=== PATIENT | male | born 1965 | race Caucasian/White ===

== ENCOUNTER 2023-04-14 16:27 | Outpatient (CLI) | payer MEDICARE, MEDICAID, SELFPAY ==
[2023-04-14 18:16] LABS: Hematocrit 35.7 % (42.0-52.0); Hemoglobin 11.8 g/dL (14.0-18.0); Mean Corpuscular HGB Conc 33.1 g/dl (32-36); Mean Corpuscular Hemoglobin 31.9 pg (26-34); Mean Corpuscular Volume 96.5 fl (80-100); Mean Platelet Volume 10.3 fl (7.4-10.4); Platelet Count Result 140 k/mm3 (150-375); Red Cell Distribution Width 14.2 % (11.5-14.5); White Blood Count 4.8 K/mm3 (4.5-10.0)
[2023-04-14 18:38] LABS: LDL Cholesterol Direct 103 mg/dL
[2023-04-14 18:40] LABS: Alanine Aminotransferase 64 U/L (6-50); Albumin Level 4.3 g/dL (3.5-5.1); Alkaline Phosphatase 95 U/L (38-126); Anion Gap 8 mmol/L (8-16); Aspartate Amino Transferase 47 U/L (17-59); Bilirubin,Total 0.5 mg/dL (0.2-1.3); Blood Urea Nitrogen 11 mg/dL (9-20); Calcium 9.5 mg/dL (8.4-10.2); Carbon Dioxide 28 mmol/L (22-30); Chloride 101 mmol/L (98-107); Cholesterol 295 mg/dL (0-200); Estimated Glomerular Filt Rate > 60; Glucose 147 mg/dL (65-110); Potassium 3.9 mmol/L (3.4-5.0); Sodium 137 mmol/L (137-145)
[2023-04-14 18:55] LABS: Creatinine Urine 78.6 mg/dL
[2023-04-14 19:00] LABS: MALB Creatinine Ratio 11.7 mg/g (0-30); Microalbumin Urine Random 9.2 mg/L (0-16.7)
[2023-04-14 19:16] LABS: Free T4 Free Thyroxine 0.99 ng/mL (0.78-2.19); Vitamin D 25 Hydroxy 17.2 ng/mL
[2023-04-14 19:53] LABS: Triglycerides 717 mg/dL (<150)
== END 2023-04-14 16:28 | disposition home or self-care (01) ==
PROVIDERS: PCP Internal Medicine; Visit Provider Internal Medicine
DX: E11.9 Type 2 diabetes mellitus without complications (principal)
CPT/HCPCS: 36415; 80053; 80061; 82043; 82306; 82607; 84439; 84443; 85027

== ENCOUNTER 2024-09-04 18:15 | Emergency (ER) | payer MEDICARE, MEDICAID, SELFPAY ==
--- NOTE | 2024-09-04 18:18 | ED_ITS ---
HPI - URI/Sore Throat General Chief Complaint: Upper Respiratory Infection Stated Complaint: flu like Time Seen by Provider: 09/04/24 18:18 Source: patient Mode of arrival: ambulatory Limitations: no limitations History of Present Illness HPI Narrative: Patient is a 58-year-old male who presents with 5 days of body aches, cough, congestion and fatigue. Patient was exposed to influenza A. Has been taking Tylenol but did not take any today. Patient did say the Tylenol helped. Denies any fever, chills, nausea, diarrhea. Does report vomiting on day 2 of symptoms. Patient has been out of metformin and glimepiride for 3 days. Related Data Home Medications ?Medication ?Instructions ?Recorded ?Confirmed ?Last Taken ?Type amitriptyline 100 mg tablet 100 mg PO BID 04/14/23 Unknown History glimepiride 4 mg tablet 4 mg PO BID 04/14/23 Unknown History icosapent ethyl 1 gram capsule 2 g PO BID 04/14/23 Unknown History levothyroxine 75 mcg tablet 75 mcg PO DAILY 04/14/23 Unknown History lithium carbonate 450 mg 450 mg PO BID 04/14/23 Unknown History tablet,extended release metformin 500 mg tablet,extended 500 mg PO BID 04/14/23 Unknown History release 24 hr metoprolol succinate 100 mg 100 mg PO DAILY 04/14/23 Unknown History tablet,extended release 24 hr naltrexone microspheres 380 mg 380 mg IM MONTHLY 04/14/23 Unknown History intramuscular suspension,extended release (Vivitrol) omeprazole 40 mg capsule,delayed 40 mg PO DAILY 04/14/23 Unknown History release Allergies Allergy/AdvReac Type Severity Reaction Status Date / Time No Known Allergies Allergy Verified 09/04/24 18:22 Review of Systems Review of Systems: All systems reviewed & are unremarkable except as noted in HPI and below Constitutional: Constitutional: Denies chills, Reports fatigue, Denies fever(s), Denies headache(s), Denies malaise and Denies weakness Eyes: Eyes: Denies blurry vision, Denies itchy eyes and Denies loss of vision ENT: Denies otalgia, Denies headache(s), Reports nasal congestion, Denies sinus pain and Denies sore throat Cardiovascular: Cardiovascular: Denies chest pain, Denies irregular heart rhythm and Denies dyspnea Respiratory: Respiratory: Reports cough and Denies dyspnea Gastrointestinal: Gastrointestinal: Denies abdominal pain, Denies diarrhea, Denies nausea and Denies vomiting Musculoskeletal: Musculoskeletal: Denies back pain, Reports myalgias and Denies arthralgias Integumentary/Breasts: Skin/Breast: Denies pruritus and Denies rash Neurologic: Denies headache(s), Denies loss of vision and Denies weakness Psychiatric: Psychiatric: Reports no additional psychiatric complaints Endocrine: Endocrine: Denies fatigue Allergic/Immunologic: Allergic/Immunologic: Denies itchy eyes PMFSH Past Medical History Medical History Hx of pancreatitis Dietary counseling and surveillance History of ETOH abuse Hyperlipidemia Hypertension Type 2 diabetes mellitus Family History Family History Father Alcoholism Heart disease Mother Heart disease Nerve disorder Sibling Alcoholism Grandparent Alcoholism Social History Social History Smoking status: Never smoker Alcohol intake: current Drinks per week: 7 Substance use: never Comments At time of signature, agree with nursing past medical, surgical, social and family history. There is no relevant family history pertinent to the presenting complaint. Exam Const: General: cooperative, healthy appearing, comfortable, no acute distress and well nourished Nutritional Appearance: well nourished Orientation/consciousness: patient oriented x3 Limitations: no limitations HENMT: Head: normal to inspection, normocephalic and atraumatic Ears: hearing grossly normal bilaterally, external ears normal, TM's normal bilaterally, no periauricular adenopathy and Abnormal EAC present excessive cerumen bilateral Face/Nose/Sinus: Normal external nose present, Abnormal mucous membranes and turbinates present erythematous bilateral and diffuse, normal facial exam, sinuses nontender and face symmetric Face and sinus: normal facial exam, sinuses nontender and face symmetric Mouth: Yes Normal oral and palatal mucosa present, Yes lip normal, Yes tongue normal, Yes Normal salivary glands and ducts present, Yes oropharynx normal and Yes moist mucous membranes Teeth and gingiva: dentition normal Throat: posterior oropharynx normal, tonsils normal and uvula midline Eyes: General: appearance normal, both eyes and all related structures Alignment and Position: alignment normal and position normal Periorbital: periorbital findings normal Eyelids: eyelids normal Pupils: Equal, round and reactive pupils present Neck: Neck: normal visual inspection, full ROM, no lymphadenopathy and supple Chest: Chest palpation & inspection: normal inspection of the chest and normal palpation of entire chest wall Resp: Effort & Inspection: normal respiratory effort and able to speak in complete sentences Auscultation: clear to auscultation bilaterally, no crackles, no rales, no rhonchi and no wheezes Cardio: Rate: tachycardic Rhythm: regular rhythm Heart sounds: S1 normal heart sound present and S2 normal heart sound present GI: Inspection: normal to inspection Skin: General skin exam: normal color and no rashes or lesions noted Neuro: General: patient oriented x3 and moves all extremities Cranial nerves: Yes Equal, round and reactive pupils present Cognition (Neuro): normal cognition Speech: Abnormal speech present stuttering Gait exam (Neuro): Normal gait present Motor exam (neuro): Tremors during motor activity present bilateral upper extremity resting tremor Sensory Exam: normal sensation Extrem: General: normal to inspection, full ROM and no edema Psych: Appearance: grossly normal and well kempt Mental Status: mental status grossly normal Speech and movement: Normal speech and movement present Affect: normal affect Attitude: cooperative Thought process: Normal thought process present Course Course Emergency Course: Discharge instructions reviewed with patient, as well as provided in writing per nursing staff. The instructions also include specific and strict return/GO TO THE ER as well as f/u information. All questions have been answered, and the patient deny any further questions with discharge and discharge plan. Portions of this record may have been created with voice recognition software Level of Care: Express Care Visit Vital Signs Vital signs: Vital Signs Temperature 37.7 C H 09/04/24 18:28 Pulse Rate 105 H 09/04/24 18:28 Respiratory Rate 18 09/04/24 18:28 Blood Pressure 134/78 09/04/24 18:28 Pulse Oximetry 97 09/04/24 18:28 Oxygen Delivery Room Air 09/04/24 18:28 Temperature 37.7 C H 09/04/24 18:28 Pulse Rate 105 H 09/04/24 18:28 Respiratory Rate 18 09/04/24 18:28 Blood Pressure 134/78 09/04/24 18:28 Pulse Oximetry 97 09/04/24 18:28 Oxygen Delivery Room Air 09/04/24 18:28 Reviewed MDM - URI/Sore Throat MDM Narrative Medical decision making narrative: Patient states he has a PCP appointment scheduled for a [facility] facility. Patient states PCP recently left to moved to [place]. Has been out of his diabetes medication for 3 days. Will give 30 day refill diabetes medication Pt well hydrated appearing, in no respiratory distress, hemodynamically stable. Recommend supportive care. The patient is stable at time of discharge the clinical impression was discussed and the patient was given the opportunity to ask questions, which were addressed as completely as possible given the information available at present. Anticipatory guidance and return to care precautions were discussed and the importance of primary care follow-up was stressed and encouraged. The patient voiced understanding of the plan, indications to return, and the need for follow-up. Differential diagnosis considered: Bronchitis, Wooten virus, strep pharyngitis, allergic rhinitis, upper respiratory tract infection, sinusitis, rhinosinusitis, nasopharyngitis. viral pharyngitis, otitis media, otitis externa, otitis effusion, foreign body, cerumen impaction, viral syndrome, and influenza.? Exam findings show no acute concerns or changes; patient is non-toxic appearing and is in no distress.? Patient is appropriate for outpatient treatment and follow- up.? Medical Records Attestation: I reviewed the patient's medical records. Lab Data Attestation: I reviewed the patient's lab results. Labs: Lab Results 09/04/24 Range/Units 18:39 POC Influenza A Ag Positive (Negative) POC Influenza B Ag Negative (Negative) POC SARS CoV-2 Ag Negative (Negative) Discharge Plan Discharge Clinical Impression: Influenza Patient Disposition: Home, Self-Care Condition: Stable Instructions: Influenza (ED) Additional Instructions: Were positive for influenza A. Your Covid is negative Your symptoms are due to a viral illness, which is not treated with antibiotics. Viral symptoms can be present for up to a few weeks. -For fever/pain, you may take: Tylenol 650-1000mg by mouth every 4-6 hours. Do not exceed 4000mg in 24 hours. 8 AM: Tylenol 2 PM: Tylenol 8 PM: Tylenol 2 AM: Tylenol -Antihistamine medication such as Benadryl/Zyrtec at night and Claritin/Daniella during the day can help improve symptoms. -Use Flonase twice a day for 5 days then daily to help reduce the inflammation and dry up your sinuses. -You can also use Sudafed behind the pharmacy counter(12 or 24 hour). Be sure to drink plenty of water with these medications at least 8 ounces with every dose and it is important to drink 8 to 10 glasses of water per day. Water is a natural decongestant -Eat and drink things that are easy to swallow, like tea or soup, or popsicles. -Oral rinses such as: Salt water gargles and/or may use topical anesthetic (eg. Chloraseptic spray) or lozenges to relieve dryness or throat pain). -Frequent hand washing or hand automation and control engineer is one of the best ways to prevent spread of infection. -Using a vaporizer or humidifier at night will also help thin secretions and help with coughing up phlegm. -Follow up with primary care provider in 3-5 days if condition is not improving - For new or worsening symptoms go directly to the nearest ER If you are having a hard time finding a physician please call our [facility] group liaison at [phone]. Patient Language: Hungarian Prescriptions: New metformin [Glucophage XR] 500 mg tablet extended release 24 hr 500 mg PO BID 30 Days Qty: 60 0RF glimepiride 4 mg tablet 4 mg PO BID 30 Days Qty: 60 0RF albuterol sulfate 90 mcg/actuation HFA aerosol inhaler 2 puff inhalation QID PRN (Reason: shortness of breath or wheezing) Qty: 6.7 0RF (DME) Aerochamber MV Spacer See Rx Instructions .Route Qty: 1 0RF Rx Instructions: As directed No Action icosapent ethyl 1 gram capsule 2 g PO BID Rx Instructions: Take 2 caps in the AM and 2 caps in the PM metformin 500 mg tablet extended release 24 hr 500 mg PO BID glimepiride 4 mg tablet 4 mg PO BID Rx Instructions: administer with breakfast and at dinner metoprolol succinate 100 mg tablet extended release 24 hr 100 mg PO DAILY levothyroxine 75 mcg tablet 75 mcg PO DAILY omeprazole 40 mg capsule,delayed release(DR/EC) 40 mg PO DAILY amitriptyline 100 mg tablet 100 mg PO BID Rx Instructions: take one tab in AM take one tab at hs lithium carbonate 450 mg tablet extended release 450 mg PO BID Rx Instructions: Take one tab AM Take one tab PM Vivitrol 380 mg suspension,extended rel recon 380 mg IM MONTHLY Rx Instructions: for alcoholism mecobalamin (vitamin B12) 1,000 mcg tablet,chewable 2,000 mcg PO DAILY Qty: 360 2RF cholecalciferol (vitamin D3) 1,250 mcg (50,000 unit) capsule 1,250 mcg PO WEEKLY Qty: 8 0RF fenofibrate 54 mg tablet 54 mg PO DAILY Qty: 90 0RF atorvastatin 40 mg tablet See Rx Instructions .ROUTE .COMPLEX Qty: 90 0RF Dose Instruction: TAKE 1 TABLET BY MOUTH EVERY DAY Rx Instructions: TAKE 1 TABLET BY MOUTH EVERY DAY Follow-up/Referrals: Zakia Long DO [Physician] - 3 Days (Establish care) Jaylene,Kartik Stewart MD [Primary Care Provider] - Time of Disposition: 18:49
[2024-09-04 18:28] VITALS: BP 134/78; PULSE 105; RESP 18; TEMP 37.7; O2SAT 97
[2024-09-04 18:41] LABS: EDCOVIDSCREEN Negative (Negative); EDINFLUASCREEN Positive (Negative); EDINFLUBSCREEN Negative (Negative)
--- OUTSIDE RECORDS SUMMARY | 2024-09-04 19:06 | XMS_ITS ---
Author Organization Formerly [facility] Address [address] [place] [address] Care Team Providers Care Annealer Helper Name Role Phone SparrAspen Primary Care Provider Thu Vazquez Unavailable [phone] REASON FOR VISIT 4 week F/U, Name Russell Fernandes 1965(58 yo) Chief complaints f/u anxiety HPI 58 year old male client presents via telephone reporting that he remains tired and weak. He states the medications are working well and he doesn't think any of the doses need changed. Was talking to client and he said he needed to check his medicine bottles and the phone went silent. The phone line was still connected but he never returned to the phone. Hung up and tried to call back, no answer, left message to call office. Depression Sleeps: Interest: Guilt: Energy: 5/10 Pretty good Fair Denies Poor Anxiety Did not rate but states is much better Caridad Denies Anger/irritability: Denies Obsessive/compulsive denies Psychosis denies Name Russell Fernandes Date of /age 06 1965 Gender Male DOS 07/17/2024 Location of visit Telephone Allergies [facility] Starting 07/19/2024 at [place] Chief complaints anxiety HPI Has bad anxiety, states that the diazepam helped but is still very anxious. He states he has not had any alcohol for about 36 days. He is going to start with a group session at [place] on , July 19, 2024. Psychiatric ROS Depression Sleeps: Interest: Guilt: Energy: Concentration: Appetite: Psychomotor retardation: Suicide: 09/17 Anxiety Worry: Anxiety: Tension in Muscles: Concentration difficulty: Hyperarousal/irritability: Energy Loss: Restlessness: Sleep disturbance: 01/17 Sleeping better Caridad Distractibility: Indiscretion:: Grandiosity: Flight of Ideas: Activity Increase: Sleep deficit: Talkativeness: denies Obsessive/compulsive denies Self-harm denies Psychosis denies Medical ROS Nothing new Substance Use Denies Tobacco/Nicotine Denies ETOH Last drink about a month (36 days) Cannabis/THC Denies Other Denies Legal issues none Living situat ion Medications Medication SIG (Take, Route, Frequency, Duration) Notes Start Date End Date Status metFORMIN HCl ER 500 MG 1 tablet with evening meal Orally Once a day Active Omeprazole 40 MG 1 capsule 30 minutes before morning meal Orally Once a day Active diazePAM 2 MG 1 tablet as needed Orally twice a day for 30 days 07/02/2024 Active Melatonin 5 MG 1-2 tablet in the evening Orally Once a day for 30 days As needed for insomnia On U unit 10/10/2023 Active Glimepiride 4 MG 1 tablet with breakfast or the first main meal of the day Orally Once a day Active Vitamin D2 50 MCG (2000 UT) 1 tablet Orally Once a day Not-Taking Icosapent Ethyl 1 GM 2 capsules with meals Orally Twice a day Not-Taking [place] Carbonate ER 450 MG 1 tablet Orally Twice a day for 30 days On [facility] Active Amitriptyline HCl 100 MG 2 tablets at bedtime Orally Once a day for 30 days On [facility] Active diazePAM 2 MG 2 tablet as needed Orally twice a day for 30 days As needed Increased dose 08/14/2024 Active Vivitrol 380 MG as directed Intramuscular every 28 days 10/06/2023 Not-Taking Vitamin D3 50 MCG (2000 UT) 1 capsule Orally Once a day Not-Taking Levothyroxine Sodium 75 MCG 1 tablet in the morning on an empty stomach Orally Once a day Active Aspirin 81 81 MG 1 tablet Orally Once a day Active Vitamin B-12 1000 MCG 1 tablet Orally Once a day Not-Taking Metoprolol Succinate ER 100 MG 1 tablet Orally Once a day Active Farxiga 5 MG 1 tablet Orally Once a day Active Rosuvastatin Calcium 20 MG 1 tablet Orally Once a day Active Social History Sex Assigned At : Social History Observation Description Sex Assigned At Male Encounters Encounter Location Date Provider Diagnosis [address] [place] [address] 08/14/2024 Thu Vazquez Depression F32.9 ; SAMIR (generalized anxiety disorder) F41.1 and Alcohol abuse F10.10 Assessments Encounter Date Diagnosis (ICD Code) Assessment Notes Treatment Notes Treatment Clinical Notes Section Notes 08/14/2024 Depression (ICD-10 - F32.9) 08/14/2024 SAMIR (generalized anxiety disorder) (ICD-10 - F41.1) 08/14/2024 Alcohol abuse (ICD-10 - F10.10) Plan Of Treatment Medication Medication Name Sig Start Date Stop Date Notes [place] Carbonate ER 450 MG 1 tablet Ora lly Twice a day for 30 days On MRU Amitriptyline HCl 100 MG 2 tablets at be dtime Orally Once a day for 30 days On MRU diazePAM 2 MG 2 tablet as needed Orally twice a day for 30 days 08/14/2024 Increased dose Next Appt Details Follow Up: 4 Weeks, Reason: f/u anxiety Progress Notes * FILOMENAVelma RussellDOB:[birth year] (58 yo M)Acc No.[id number]:08/14/2024 Patient: Russell SOMMER Provider: PENG Palacios :1965 A ge:58 Y S ex:Male Date:08/14/2024 Address:[address] [place], [place] [id number] Pcp:Aspen Ascencio Subjective: * Chief Complaints: * 4 week F/UName Russell Dom 1965(58 yo) Chief complaints f/u anxiety HPI 58 year old male client presents via telephone reporting that he remains tired and weak. He states the medications are working well and he doesn't think any of the doses need changed. Was talking to client and he said he needed to check his medicine bottles and the phone went silent. The phone line was still connected but he never returned to the phone. Hung up and tried to call back, no answer, left message to call office. Depression Sleeps: Interest: Guilt: Energy: 5/10 Pretty good Fair Denies Poor Anxiety Did not rate but states is much better Caridad Denies Anger/irritability: Denies Obsessive/compulsive denies Psychosis denies Name Russell Fernandes Date of /age 06 1965 Gender Male DOS 07/17/2024 Location of visit Telephone Allergies [facility] Starting 07/19/2024 at [place] Chief complaints anxiety HPI Has bad anxiety, states that the diazepam helped but is still very anxious. He states he has not had any alcohol for about 36 days. He is going to start with a group session at [place] on July. Psychiatric ROS Depression Sleeps: Interest: Guilt: Energy: Concentration: Appetite: Psychomotor retardation: Suicide: 09/17 Anxiety Worry: Anxiety: Tension in Muscles: Concentration difficulty: Hyperarousal/irritability: Energy Loss: Restlessness: Sleep disturbance: 01/17 Sleeping better Caridad Distractibility: Indiscretion:: Grandiosity: Flight of Ideas: Activity Increase: Sleep deficit: Talkativeness: denies Obsessive/compulsive denies Self-harm denies Psychosis denies Medical ROS Nothing new Substance Use Denies Tobacco/Nicotine Denies ETOH Last drink about a month (36 days) Cannabis/THC Denies Other Denies Legal issues none Living situation * ROS: * PSYCH ROS2: Depressive symptoms R eports depressed mood,. E levated mood symptoms D enies feelings of grandiosity/increased self-esteem, Denies decreased need for sleep. m ood swings d enies. T houghts of self harm D enies. H omicidal thoughts D enies. H yperactivity D enies. I nattention d enies. B ehavior concerns d enies. D isruptive behavior d enies. O bsessive behavior d enies. C ompulsive behavior d enies. P aranoia d enies. D ifficulty concentrating Denies. s leeping more than usual d enies. D epression A dmits low mood for greater than 2 weeks,Difficulty sleeping. M salma D enies Grandiosity, Denies Increased or high risk activity, Denies decreased judgement. A nhedonia D enies. A ppetite N ormal. S leep problems N o problems.?Anergia d enies. C oncentration d enies. S eeing therapist d enies. S ubstance use D enies use. P anic attacks d enies. A nxiety/Worry R eports anxiety. I rritability d enies. S elf-Harm d enies. S leep d enies difficulty.?Depression/Sadness reports. P atient complaining of a nxiety,depression,difficulty sleeping. A nxiety a dmits, ,that is mild. A uditory/visual hallucinations d enies. D elusions d enies. D epressed mood?admits,which is mild. D ifficulty sleeping d enies. E ating disorder d enies. L oss of appetite?denies. M ental or Physical abuse d enies. N ervous breakdown d enies. P sychiatric condition d enies. S tressors r elationship. S ubstance abuse a dmits,that is in remission,that is for alcohol. S uicidal thoughts d enies. * Medical History: * Surgical History: * Hospitalization/Major Diagno stic Procedure: [place] for detox 2021 * Family History: F ather: , Heart problems, bypass, heart attack. M other: alive, heart problems, mental health. 1 brother(s) , 1 sister(s) . 2 daughter(s) - healthy. . Brother has passed. * [facility] History[facility] Social History: L iving Arrangement L iving Arrangement: H omeless. A lcohol Use A lcohol Use Frequency: Beer Last Drink 09/26/23. I llicit Substance Usage I llicit Substance Usage:?No. E mployment Status E mployment Status: O n Disability. * Medications: T akingdiazePAM 2 MG Tablet 1 tablet as needed Orally twice a day Melatonin 5 MG Tablet 1-2 tablet in the evening Orally Once a day As needed for insomnia, Notes to Pharmacist: On MRU unitmetFORMIN HCl ER 500 MG Tablet Extended Release 24 Hour 1 tablet with evening meal Orally Once a day Omeprazole 40 MG Capsule Delayed Release 1 capsule 30 minutes before morning meal Orally Once a day Glimepiride 4 MG Tablet 1 tablet with breakfast or the first main meal of the day Orally Once a day Rosuvastatin Calcium 20 MG Tablet 1 tablet Orally Once a day Farxiga 5 MG Tablet 1 tablet Orally Once a day Metoprolol Succinate ER 100 MG Tablet Extended Release 24 Hour 1 tablet Orally Once a day Aspirin 81 81 MG Tablet Delayed Release 1 tablet Orally Once a day Levothyroxine Sodium 75 MCG Tablet 1 tablet in the morning on an empty stomach Orally Once a day diazePAM 2 MG Tablet 2 tablet as needed Orally twice a day As needed, Notes to Pharmacist: Increased doseLithium Carbonate ER 450 MG Tablet Extended Release 1 tablet Orally Twice a day , Notes to Pharmacist: On MRUAmitriptyline HCl 100 MG Tablet 2 tablets at bedtime Orally Once a day , Notes to Pharmacist: On MRUTaking diazePAM 2 MG Tablet 1 tablet as needed Orally twice a day Taking Melatonin 5 MG Tablet 1-2 tablet in the evening Orally Once a day As needed for insomnia, Notes to Pharmacist: On MRU unitTaking metFORMIN HCl ER 500 MG Tablet Extended Release 24 Hour 1 tablet with evening meal Orally Once a day Taking Omeprazole 40 MG Capsule Delayed Release 1 capsule 30 minutes before morning meal Orally Once a day Taking Glimepiride 4 MG Tablet 1 tablet with breakfast or the first main meal of the day Orally Once a day Taking Rosuvastatin Calcium 20 MG Tablet 1 tablet Orally Once a day Taking Farxiga 5 MG Tablet 1 tablet Orally Once a day Taking Metoprolol Succinate ER 100 MG Tablet Extended Release 24 Hour 1 tablet Orally Once a day Taking Aspirin 81 81 MG Tablet Delayed Release 1 tablet Orally Once a day Taking Levothyroxine Sodium 75 MCG Tablet 1 tablet in the morning on an empty stomach Orally Once a day Taking diazePAM 2 MG Tablet 2 tablet as needed Orally twice a day As needed, Notes to Pharmacist: Increased doseTaking [place] Carbonate ER 450 MG Tablet Extended Release 1 tablet Orally Twice a day , Notes to Pharmacist: On MRUTaking Amitriptyline HCl 100 MG Tablet 2 tablets at bedtime Orally Once a day , Notes to Pharmacist: On MRUNot-TakingVivitrol 380 MG Suspension Reconstituted as directed Intramuscular every 28 days Vitamin D3 50 MCG (2000 UT) Capsule 1 capsule Orally Once a day Vitamin B-12 1000 MCG Tablet 1 tablet Orally Once a day Vitamin D2 50 MCG (2000 UT) Tablet 1 tablet Orally Once a day Icosapent Ethyl 1 GM Capsule 2 capsules with meals Orally Twice a day Medication List reviewed and reconciled with the patientNot-Taking Vivitrol 380 MG Suspension Reconstituted as directed Intramuscular every 28 days Not-Taking Vitamin D3 50 MCG (2000 UT) Capsule 1 capsule Orally Once a day Not-Taking Vitamin B-12 1000 MCG Tablet 1 tablet Orally Once a day Not- Taking Vitamin D2 50 MCG (2000 UT) Tablet 1 tablet Orally Once a day Not-Taking Icosapent Ethyl 1 GM Capsule 2 capsules with meals Orally Twice a day Medication List reviewed and reconciled with the patient Objective: * Vitals: * Examination: P sychiatry: APPEARANCE: u nable to assess - telephone appointment. ATTENTION: g ood. ORIENTATION: p erson, place and time. ATTITUDE: c ooperative, pleasant. AFFECT: a ppropriate, full range, congruent. MOOD: e uthymic. SPEECH: c lear, normal/R/V/R. PSYCHOMOTOR ACTIVITY: w ithin normal range, restless/fidgety. ABNORMAL BODY MOVEMENTS: n one. CURRENT HOMICIDALITY: d enies. CURRENT SUICIDALITY: d enies. THOUGHT PROCESS: i ntact, linear, goal-directed. THOUGHT CONTENT: u nremarkable. PERCEPTUAL DISORDERS: n o perceptual disorder noted. INSIGHT: g ood. JUDGEMENT: g ood. DEGREE OF AWARENESS OF SURROUNDINGS: w ithin normal limits.? INTELLIGENCE (estimate): a verage. ABSTRACTION: g ood. IMPULSE CONTROL: g ood. ANXIETY LEVEL l ow. ANGER CONTROL: h igh. AGGRESSION: l ow. Assessment: * Assessment: 1. D epression - F32.9 2 . G AD (generalized anxiety disorder) - F41.1 (Primary) 3 . A lcohol abuse - F10.10 Plan: * Treatment: 2. D epression Continue [place] Carbonate ER Tablet Extended Release, 450 MG, 1 tablet, Orally, Twice a day, 30 days, 60 Tablet, Notes to Pharmacist: On MRU; C ontinue Amitriptyline HCl Tablet, 100 MG, 2 tablets at bedtime, Orally, Once a day, 30 days, 60 Tablet, Notes to Pharmacist: On MRU. 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 History and Physical Notes * Examination Category Sub-Category Detail Notes Category Not es Psychiatry APPEARANCE: unable to assess - telephone appointment ATTITUDE: cooperative, pleasan t PSYCHOMOTOR ACTIVITY: within normal rang e, restless/fidgety ABNORMAL BODY MOVEMENTS: none ATTENTION: good DEGREE OF AWARENESS OF SURROUNDINGS: wit hin normal limits ORIENTATION: person, place and ti me AFFECT: appropriate, full ra nge, congruent MOOD: euthymic SPEECH: clear, normal/R/V/R INSIGHT: good JUDGEMENT: good THOUGHT PROCESS: intact, linear, goal -directed THOUGHT CONTENT: unremarkable PERCEPTUAL DISORDERS: no perceptual diso rder noted ABSTRACTION: good AGGRESSION: low ANGER CONTROL: high CURRENT SUICIDALITY: denies CURRENT HOMICIDALITY: denies INTELLIGENCE (estimate): average IMPULSE CONTROL: good ANXIETY LEVEL low
--- OUTSIDE RECORDS SUMMARY | 2024-09-04 19:06 | XMS_ITS ---
Author Organization Formerly [facility] Address [address] [place] [address] Care Team Providers Care Consulting Nurse Name Role Phone Aspen Ascencio Primary Care Provider [phone] Thu Vazquez Unavailable [phone] REASON FOR VISIT VM Social History Sex Assigned At : Social History Observation Description Sex Assigned At Male Encounters Encounter Location Date Provider Diagnosis [place] [address], [place] [address] 08/14/2024 Thu Vazquez Plan Of Treatment No Information Progress Notes * Russell OBRIENDOB:[birth year] (58 yo M)Acc No.[id number]:08/14/2024 Patient: Russell SOMMER :1965 A ge:58 Y S ex:Male Address:[address] [place] [address], [address] * true * Date: Generated for Lester sims/Arlen/eTransmitting on: 0 09/04/2024 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
--- OUTSIDE RECORDS SUMMARY | 2024-09-04 19:07 | XMS_ITS | Clinical Summary ---
Author Organization [facility] Address [address] [place] [address] Phone Care Team Providers Care Ur Coordinator Name Role Phone Kartik Mariee MD Primary Care Provider [phone] Medications lithium (ESKALITH) 450 MG Tablet Controlled Release Take 450 mg by mouth 2 times daily. Active ergocalciferol (Drisdol) 10036 UNIT Capsule Take 50,000 Units by mouth once a week. Active rosuvastatin (Crestor) 20 MG Tablet Take 20 mg by mouth nightly. Active levothyroxine (SYNTHROID) 75 MCG Tablet Take 75 mcg by mouth daily. Active Dapagliflozin Propanediol (Farxiga) 5 MG Tablet Take 5 mg by mouth daily. Active Cholecalciferol (VITAMIN D-3 PO) Take 1 Tablet by mouth daily. Active Cyanocobalamin (B-12 PO) Take 1,000 mcg by mouth daily. Active metFORMIN (GLUCOPHAGE-XR) 500 MG TABLET SR 24 HR Take 500 mg by mouth in the morning and at bedtime. This RX is for Metformin SR. Active omeprazole (PriLOSEC) 40 MG CAPSULE DELAYED RELEASE Take 40 mg by mouth daily. Active amitriptyline (ELAVIL) 100 MG Tablet Take 100 mg by mouth in the morning and at bedtime. Active glimepiride (AMARYL) 4 MG Tablet Take 4 mg by mouth in the morning and at bedtime. Active metoprolol Succinate (TOPROL-XL) 100 MG TABLET SR 24 HR Take 100 mg by mouth daily. Active Social History Tobacco Use Types Packs/Day Years Used Date Smoking Tobacco: Never Smokeless Tobacco: Never Tobacco Cessation:Counseling Given: Not Answered Alcohol Use Standard Drinks/Week Comments Yes 0 (1 standard drink = 0.6 oz pur e alcohol) Sexually Active Control Partners Comments Not Currently Sex and Gender Information Value Date Recorded Sex Assigned at Not on file Legal Sex Male 4:16 PM CDT Gender Identity Not on file Sexual Orientation Not on file Last Filed Vital Signs Vital Sign Reading Time Taken Comments Blood Pressure 137/79 09/22/2023 9:30 PM CDT Pulse 78 09/22/2023 9:30 PM CDT Temperature 36.2 C (97.2 F) 09/22/2023 4:22 PM CDT Respiratory Rate 17 09/22/2023 9:30 PM CDT Oxygen Saturation 97% 09/22/2023 9:30 PM CDT Inhaled Oxygen Concentration - - Weight 95.3 kg (210 lb) 09/22/2023 4:22 PM CDT Height 180.3 cm (5' 11 ) 09/22/2023 4:22 PM CDT Body Mass Index 29.29 09/22/2023 4:22 PM CDT Plan of Treatment Health Maintenance Due Date Last Done Comments Hepatitis C Virus (HCV) Screening 1965 TdaP Immunization 1965 Hepatitis B Immunization (1 of 3 - 19+ 3-dose series) 12/21/1986 Colonoscopy 12/21/2012 Colorectal Cancer Screening 12/21/2012 Cologuard 12/21/2017 Immunochemical Fecal Occult Blood 12/21/2017 Pneumococcal Immunization (50+ years) (1 of 1 - PCV) 12/21/2017 PSA Discussion 12/21/2022 Influenza Immunization (#1) 03/11/202404/10, 05/07/2021, 04/08/2020, Additional history exists SARS-COV-2 Immunization ( season) 2024 09/21/2022, 10/13/2021, 04/04/2021, Additional history exists Respiratory Syncytial Virus (RSV) Immunization (Adult) (1 - 1-dose 75+ series) 12/21/2042 Zoster Immunization Completed 12/13/2021, Meningococcal Immunization (ACWY) Aged Out No longer eligible based on patient's age to complete this topic Pneumococcal Immunization Combined Aged Out No longer eligible based on patient's age to complete this topic Rotavirus Immunization Aged Out No lo nger eligible based on patient's age to complete this topic Insurance [place]ICAID [place] [employer] [facility] Care Teams Ur Coordinator Relationship Specialty Start Date End Date Kartik Mariee MD PCP - General Internal Medicine 09/22/23
--- OUTSIDE RECORDS SUMMARY | 2024-09-04 19:07 | XMS_ITS | Referral Summary ---
Author Organization [facility] Address [address] [place] [address] Care Team Providers Care Laboratory Engineer Name Role Phone None, Physician Primary Care Provider Unavailabl e Source Comments [facility],non-owned Affiliates and Associated Physician Practices is amultiple site organization consisting of ambulatory clinics and hospital sitesin [place], [place] and [place]. This disclosure is being madepursuant to the Care Everywhere program and may not contain all information available regarding this patient. Last updated 18.[facility] Encounters Date Type Department Care Team Description 07/31/2024 Telephone Transitional Care at [address] [phone] Danielle Aj, glue specialty supervisor 07/31/2024 Telephone Transitional Care at [address] [phone] Danielle Aj, glue specialty supervisor 07/30/2024 Telephone Transitional Care at [address] [phone] Mayra Rodriguez, glue specialty supervisor 07/27/2024 6:27 PM DYE FEEDER - 07/29/2024 11:50 AM DYE FEEDER Hospital Encounter [facility]EENA WILSON [address] [place] [phone] Norman Plummer MD Morreale, Peter J III, MD Nguyen, Christopher, DO Brotherton, Timothy, MD Madi, Mahmoud, MD Hospitalist Discharge Disposition: Home or Self Care 07/27/2024 Travel from Last 3 Months Allergies No known active allergies Medications * Be aware that medications may not be up to date on this document. Alwaysverify current medications with the patient. Medication Sig Dispensed Refills Start Date End Date Status omeprazole (PriLOSEC) 40 MG capsuleIndicatio ns:Gastroesophag eal Reflux Disease Take 1 (one) capsule by mouth daily before breakfast Reasons: Gastroesophageal Reflux Disease Active amitriptyline (Elavil) 100 MG tabletIndication s:Depressive Phase Bipolar Mood Disorder Take 2 (two) tablets by mouth at bedtime Reasons: Depressive Phase of Manic-Depression Active metoprolol succinate XL 24hr (Toprol XL) 100 MG tablet Take 1 (one) tablet by mouth once daily Active lithium CR (Eskalith CR) 450 MG tabletIndication s:Bipolar Mood Disorder Take 1 (one) tablet by mouth every 12 hours Reasons: Manic-Depression Active levothyroxine (Synthroid) 25 MCG tabletIndication s:Hypothyroidism Take 1 (one) tablet by mouth daily before breakfast Reasons: Underactive Thyroid Active vitamin D3 (Cholecalciferol ) 25 MCG (1000 UNITS) tabletIndication s:Vitamin D Deficiency Take 2 (two) tablets by mouth once daily Reasons: Vitamin D Deficiency Active rosuvastatin (Crestor) 20 MG tablet Take 1 (one) tablet by mouth once daily for 30 days 30 tablet 07/30/2024 Active thiamine (Vitamin B-1) 100 MG tablet Take 1 (one) tablet by mouth once daily for 14 days 14 tablet 07/31/2024 5 folic acid (Folvite) 1 MG tablet Take 1 (one) tablet by mouth once daily for 14 days 14 tablet 07/31/2024 5 Active Problems Problem Noted Date Diagnosed Date Nausea and vomiting, unspecified vomiting type 0 07/27/2024 Anxiety states 07/27/2024 Alcohol withdrawal syndrome without complication 07/27/2024 Alcohol dependence with unsp ecified alcohol-induced disorder 07/27/2024 Social History Tobacco Use Types Packs/Day Years Used Date Smoking Tobacco: Never Assessed Sex and Gender Information Value Date Recorded Sex Assigned at Not on file Gender Identity Not on file Sexual Orientation Not on file Last Filed Vital Signs Vital Sign Reading Time Taken Comments Blood Pressure 143/86 07/29/2024 8:37 AM DYE FEEDER Pulse 76 07/29/2024 8:37 AM DYE FEEDER Temperature 36.2 C (97.2 F) 07/29/2024 8:37 AM DYE FEEDER Respiratory Rate 16 07/29/2024 8:37 AM DYE FEEDER Oxygen Saturation 96% 07/29/2024 8:37 AM DYE FEEDER Inhaled Oxygen Concentration - - Weight 89.2 kg (196 lb 11.2 oz) 07/27/2024 9:02 PM DYE FEEDER Height 177.8 cm (5' 10 ) 07/27/2024 9:02 PM DYE FEEDER Body Mass Index 28.22 07/27/2024 9:02 PM DYE FEEDER Plan of Treatment Not on file Procedures Procedure Name Priority Date/Time Associated Diagnosis Comments CARDIAC EKG ORDER 07/30/2024 1:0 8 PM DYE FEEDER GLUCOSE - POINT OF CARE Routine 07/29/19 8:38 AM DYE FEEDER CBC W AUTO DIFFERENTIAL AM Draw 07/29/19 6:08 AM DYE FEEDER Alcohol withdrawal syndrome without complication (HCC) COMPREHENSIVE METABOLIC PANEL AM Draw 07/29/2024 6:08 AM DYE FEEDER Alcohol withdrawal syndrome without complication (HCC) GLUCOSE - POINT OF CARE Routine 07/29/19 4:01 AM DYE FEEDER GLUCOSE - POINT OF CARE Routine 07/28/19 7:38 PM DYE FEEDER GLUCOSE - POINT OF CARE Routine 07/28/19 4:16 PM DYE FEEDER GLUCOSE - POINT OF CARE Routine 07/28/19 11:19 AM DYE FEEDER BASIC METABOLIC PANEL (CALCIUM TOTAL) Routine 07/28/2024 8:04 AM DYE FEEDER Alcohol withdrawal syndrome without complication (HCC) Nausea and vomiting, unspecified vomiting type Alcohol dependence with unspecified alcohol-induced disorder (HCC) Anxiety states FOLATE Routine 07/28/2024 8:04 AM DYE FEEDER Alcohol withdrawal syndrome without complication (HCC) Nausea and vomiting, unspecified vomiting type Alcohol dependence with unspecified alcohol-induced disorder (HCC) Anxiety states LIPASE BLOOD AM Draw 07/28/2024 8:04 AM DYE FEEDER Alcohol withdrawal syndrome without complication (HCC) Nausea and vomiting, unspecified vomiting type Alcohol dependence with unspecified alcohol-induced disorder (HCC) Anxiety states HYDROXYBUTYRATE BETA AM Draw 07/28/2024 8:04 AM DYE FEEDER Alcohol withdrawal syndrome without complication (HCC) Nausea and vomiting, unspecified vomiting type Alcohol dependence with unspecified alcohol-induced disorder (HCC) Anxiety states SALICYLATE LEVEL BLOOD AM Draw 8:04 AM DYE FEEDER Alcohol withdrawal syndrome without complication (HCC) Nausea and vomiting, unspecified vomiting type Alcohol dependence with unspecified alcohol-induced disorder (HCC) Anxiety states LITHIUM LEVEL Routine 07/28/2024 8:04 AM DYE FEEDER Alcohol withdrawal syndrome without complication (HCC) Nausea and vomiting, unspecified vomiting type Alcohol dependence with unspecified alcohol-induced disorder (HCC) Anxiety states HEMOGLOBIN A1C Routine 07/28/2024 8:04 AM DYE FEEDER Alcohol withdrawal syndrome without complication (HCC) Nausea and vomiting, unspecified vomiting type Alcohol dependence with unspecified alcohol-induced disorder (HCC) Anxiety states MAGNESIUM BLOOD Routine 07/28/2024 8:04 AM DYE FEEDER Alcohol withdrawal syndrome without complication (HCC) Nausea and vomiting, unspecified vomiting type Alcohol dependence with unspecified alcohol-induced disorder (HCC) Anxiety states CBC W/O DIFFERENTIAL Routine 07/28/2024 8:04 AM DYE FEEDER Alcohol withdrawal syndrome without complication (HCC) Nausea and vomiting, unspecified vomiting type Alcohol dependence with unspecified alcohol-induced disorder (HCC) Anxiety states LACTIC ACID BLOOD Routine 07/28/2024 8:0 4 AM DYE FEEDER Alcohol withdrawal syndrome without complication (HCC) Nausea and vomiting, unspecified vomiting type Alcohol dependence with unspecified alcohol-induced disorder (HCC) Anxiety states VITAMIN D 25-HYDROXY AM Draw 07/28/2024 8:03 AM DYE FEEDER Alcohol withdrawal syndrome without complication (HCC) Nausea and vomiting, unspecified vomiting type Alcohol dependence with unspecified alcohol-induced disorder (HCC) Anxiety states VITAMIN B12 AM Draw 07/28/2024 8:03 AM DYE FEEDER Alcohol withdrawal syndrome without complication (HCC) Nausea and vomiting, unspecified vomiting type Alcohol dependence with unspecified alcohol-induced disorder (HCC) Anxiety states TSH REFLEX FREE T4 Routine 07/28/2024 8: 03 AM DYE FEEDER Alcohol withdrawal syndrome without complication (HCC) Nausea and vomiting, unspecified vomiting type Alcohol dependence with unspecified alcohol-induced disorder (HCC) Anxiety states GLUCOSE - POINT OF CARE Routine 07/28/19 7:26 AM DYE FEEDER URINALYSIS REFLEX TO MICROSCOPIC NO CULTURE STAT 07/28/2024 1:00 AM DYE FEEDER GLUCOSE - POINT OF CARE Routine 07/27/19 9:52 PM DYE FEEDER XR CHEST 2VW STAT 07/27/2024 5:27 PM DYE FEEDER Nausea and vomiting, unspecified vomiting type TROPONIN-I HIGH SENSITIVE STAT 07/27/2024 5:21 PM DYE FEEDER TSH REFLEX FREE T4 STAT 07/27/2024 5: 21 PM DYE FEEDER PHOSPHORUS BLOOD STAT 07/27/2024 5:21 PM DYE FEEDER LIPASE BLOOD STAT 07/27/2024 5:21 PM DYE FEEDER ALCOHOL ETHYL BLOOD STAT 07/27/2024 5 :21 PM DYE FEEDER COMPREHENSIVE METABOLIC PANEL STAT 07/27/2024 5:21 PM DYE FEEDER CBC W AUTO DIFFERENTIAL STAT 07/27/19 5:21 PM DYE FEEDER EKG 12-LEAD STAT 07/27/2024 5:10 PM DYE FEEDER Nausea and vomiting, unspecified vomiting type from Last 3 Months Results * CARDIAC EKG ORDER (07/30/2024 1:08 PM DYE FEEDER) Narrative 07/30/2024 1:08 PM DYE FEEDER Ordered by an unspecified provider. Scanned Document CARDIAC SERVICES ORD ERABLES * (ABNORMAL) GLUCOSE - POINT OF CARE (07/29/2024 8:38 AM DYE FEEDER) Only the most recent of7 resultswithin the time period is included. [facility] Glucose WB/POC 137(H) 70 - 99 mg/dL 07/29/2024 8:43 AM [facility] Specimen Type Cap Fingerstick 2024 8:43 AM [facility] Blood BLOOD SPECIMEN / Unknown 07/29/2024 8:38 AM DYE FEEDER 07/29/2024 8:43 AM DYE FEEDER Mani Beckham MD LAB - POINT OF CARE ORDERABLES Performing Organization Address City/State/[facility] Co de Phone Number [address] [address], [facility] [phone] * (ABNORMAL) CBC W AUTO DIFFERENTIAL (07/29/2024 6:08 AM DYE FEEDER) Only the most recent of2 resultswithin the time period is included. [facility] WBC 2.1(L) 4.0 - 10.7 x10E9/L 07/29/2024 7:44 AM [facility] RBC Count 3.39(L) 4.30 - 5.80 x10E12/L 07/29/2024 7:44 AM [facility] Hemoglobin 10.8(L) 13.3 - 17.5 g/dL 07/29/2024 7:44 AM [facility] Hematocrit 31.3(L) 38.7 - 51.1 % 07/29/2024 7:44 AM [facility] MCV 92.3 80.0 - 98.0 fL 07/29/2024 7:44 AM [facility] MCH 31.9 26.7 - 33.6 pg 07/29/2024 7:44 AM [facility] MCHC 34.5 31.7 - 36.3 g/dL 07/29/2024 7:44 AM [facility] RDW-CV 13.2 11.3 - 14.8 % 07/29/2024 7:44 AM [facility] Platelet Count 83(L) 150 - 420 x10E9/L 07/29/2024 7:44 AM [facility] MPV 10.5 7.8 - 11.4 fL 07/29/2024 7:44 AM [facility] Neutrophil % 60.3 41.0 - 74.0 % 07/29/2024 7:44 AM [facility] Lymphocyte % 23.8 17.0 - 47.0 % 07/29/2024 7:44 AM [facility] Monocyte % 9.3 3.0 - 11.0 % 07/29/2024 7:44 AM [facility] Eosinophil % 5.6 0.0 - 7.0 % 07/29/2024 7:44 AM [facility] Basophil % 0.5 0.0 - 1.6 % 07/29/2024 7:44 AM [facility] Immature Granulocytes % 0.5 0.0 - 1.0 % 07/29/2024 7:44 AM [facility] Neutrophil Absolute 1.29(L) 1.60 - 7.50 x10E9/L 07/29/2024 7:44 AM [facility] Lymphocyte Absolute 0.51(L) 1.00 - 4.40 x10E9/L 07/29/2024 7:44 AM [facility] Monocyte Absolute 0.20 0.15 - 1.00 x10E9/L 07/29/2024 7:44 AM [facility] Eosinophil Absolute 0.12 0.00 - 0.60 x10E9/L 07/29/2024 7:44 AM [facility] Basophil Absolute 0.01 0.00 - 0.13 x10E9/L 07/29/2024 7:44 AM [facility] Blood BLOOD SPECIMEN / Unknown Lab Venipuncture / Unknown 07/29/2024 6:08 AM [facility] 07/29/2024 7:10 AM [facility] Joon Davis MD LAB - HEMATOLOGY O RDERABLES [facility] [address] [place] [address], [facility] [phone] * (ABNORMAL) COMPREHENSIVE METABOLIC PANEL (07/29/2024 6:08 AM [facility]) Only the most recent of2 resultswithin the time period is included. BUN 8 7 - 26 mg/dL 07/29/2024 8:07 AM [facility] Creatinine 0.66(L) 0.71 - 1.16 mg/dL 07/29/2024 8:07 AM [facility] Sodium 140 136 - 145 mmol/L 07/29/2024 8:07 AM [facility] Potassium 3.6 3.5 - 4.5 mmol/L 07/29/2024 8:07 AM [facility] Chloride 106 98 - 107 mmol/L 07/29/2024 8:07 AM [facility] CO2 26 22 - 29 mmol/L 07/29/2024 8:07 AM [facility] Glucose 147(H) 70 - 99 mg/dL 07/29/2024 8:07 AM [facility] Calcium 9.0 8.4 - 10.2 mg/dL 07/29/2024 8:07 AM [facility] Protein Total 5.8(L) 6.0 - 8.3 g/dL 07/29/2024 8:07 AM [facility] Albumin 3.3(L) 3.4 - 5.0 g/dL 07/29/2024 8:07 AM [facility] Bilirubin Total 0.6 0.2 - 1.2 mg/dL 07/29/2024 8:07 AM [facility] Alkaline Phosphatase 57 40 - 150 U/L 07/29/2024 8:07 AM [facility] ALT 21 5 - 55 U/L 07/29/2024 8:07 AM [facility] AST 27 5 - 34 U/L 07/29/2024 8:07 AM [facility] Anion Gap 8 6 - 16 07/29/2024 8:07 AM [facility] BUN/Creatinine Ratio 12 7 - 23 07/29/2024 8:07 AM [facility] Osmolality Calculated 291 275 - 295 mOsm/kg 07/29/2024 8:07 AM [facility] Albumin/Globulin Ratio 1.3 1.1 - 2.3 07/29/2024 8:07 AM [facility] eGFR by CKD-EPI >90 >=90 mL/min/1.7 3 m2 07/29/2024 8:07 AM [facility] Blood BLOOD SPECIMEN / Unknown Lab Venipuncture / Unknown 07/29/2024 6:08 AM DYE FEEDER 07/29/2024 7:08 AM DYE FEEDER Joon Davis MD LAB - CHEMISTRY OR DERABLES Performing Organization Address City/[facility]/ZIP Co de Phone Number [address] [address], [facility] [phone] * (ABNORMAL) HYDROXYBUTYRATE BETA (07/28/2024 8:04 AM [facility]) Beta-Hydroxybu tyrate 0.89(H) <0.50 mmol/L 07/28/2024 11:10 AM [facility] Blood BLOOD SPECIMEN / Unknown Lab Venipuncture / Unknown 07/28/2024 8:04 AM DYE FEEDER 07/28/2024 9:44 AM DYE FEEDER Radha BUSTOS LAB - CHEMISTRY ORDERABLES [address] [address], [facility] [phone] * HEMOGLOBIN A1C (07/28/2024 8:04 AM [facility]) Hemoglobin A1c 5.6 <=5.6 % 07/28/2024 11:11 AM [facility] Estimated Average Glucose 114 mg/dL 07/28/2024 11:11 AM [facility] Comment: HbA1c Interpretation: Normal : < 5.7% Pre-diabetes: 5.7-6.4% Diabetes: Equal to or greater than 6.5% Test results diagnostic of diabetes should be repeated for confirmation. Treatment target values recommended by ADA and other clinical organizations should be used to evaluate metabolic control in patients. Reference: [place] [employer], Standards of Care in Diabetes -2020 In patients 70 years and older consider HbA1c target range of 7.0-7.5% (Reference: Jonah Cordon et al. TAMMY. 2012) The Sebia assay for the measurement of HbA1c is a National Glycohemoglobin Standardization Program (NGSP) certified method. Blood BLOOD SPECIMEN / Unknown Lab Venipuncture / Unknown 07/28/2024 8:04 AM DYE FEEDER 07/28/2024 8:45 AM DYE FEEDER Radha Vazquez APRN-MARKING DEVICES ASSEMBLER LAB - CHEMISTRY ORDERABLES [facility] [address] [place] [phone], [facility] [phone] * (ABNORMAL) CBC W/O DIFFERENTIAL (07/28/2024 8:04 AM [facility]) WBC 3.5(L) 4.0 - 10.7 x10E9/L 07/28/2024 8:59 AM [facility] RBC Count 3.50(L) 4.30 - 5.80 x10E12/L 07/28/2024 8:59 AM [facility] Hemoglobin 10.9(L) 13.3 - 17.5 g/dL 07/28/2024 8:59 AM [facility] Hematocrit 32.8(L) 38.7 - 51.1 % 07/28/2024 8:59 AM [facility] MCV 93.7 80.0 - 98.0 fL 07/28/2024 8:59 AM [facility] MCH 31.1 26.7 - 33.6 pg 07/28/2024 8:59 AM [facility] MCHC 33.2 31.7 - 36.3 g/dL 07/28/2024 8:59 AM [facility] RDW-CV 13.4 11.3 - 14.8 % 07/28/2024 8:59 AM [facility] Platelet Count 100(L) 150 - 420 x10E9/L 07/28/2024 8:59 AM [facility] MPV 10.6 7.8 - 11.4 fL 07/28/2024 8:59 AM [facility] Blood BLOOD SPECIMEN / Unknown Lab Venipuncture / Unknown 07/28/2024 8:04 AM DYE FEEDER 07/28/2024 8:44 AM [facility] Radha Vazquez APRN-MARKING DEVICES ASSEMBLER LAB - HEMATOLOGY ORDERABLES Performing Organization Address City/State/[facility] Co de Phone Number [facility] [address] [place] [address], [facility] [phone] * (ABNORMAL) BASIC METABOLIC PANEL (CALCIUM TOTAL) (07/28/2024 8:04 AM [facility]) BUN 9 7 - 26 mg/dL 07/28/2024 11:10 AM [facility] Creatinine 0.73 0.71 - 1.16 mg/dL 07/28/2024 11:10 AM [facility] Sodium 135(L) 136 - 145 mmol/L 07/28/2024 11:10 AM [facility] Potassium 3.6 3.5 - 4.5 mmol/L 07/28/2024 11:10 AM [facility] Chloride 103 98 - 107 mmol/L 07/28/2024 11:10 AM [facility] CO2 20(L) 22 - 29 mmol/L 07/28/2024 11:10 AM [facility] Glucose 239(H) 70 - 99 mg/dL 07/28/2024 11:10 AM [facility] Calcium 8.6 8.4 - 10.2 mg/dL 07/28/2024 11:10 AM [facility] Anion Gap 12 6 - 16 07/28/2024 11:10 AM [facility] BUN/Creatinine Ratio 12 7 - 23 07/28/2024 11:10 AM [facility] Osmolality Calculated 286 275 - 295 mOsm/kg 07/28/2024 11:10 AM [facility] eGFR by CKD-EPI >90 >=90 mL/min/1.7 3 m2 07/28/2024 11:10 AM DYE FEEDER [facility] Blood BLOOD SPECIMEN / Unknown Lab Venipuncture / Unknown 07/28/2024 8:04 AM DYE FEEDER 07/28/2024 9:44 AM DYE FEEDER Radha Vazquez [facility] LAB - CHEMISTRY ORDERABLES Performing Organization Address [facility]/ZIP Co de Phone Number [address] [address], [facility] [phone] * MAGNESIUM BLOOD (07/28/2024 8:04 AM DYE FEEDER) Magnesium 1.6 1.6 - 2.6 mg/dL 07/28/2024 11:10 AM DYE FEEDER [facility] Blood BLOOD SPECIMEN / Unknown Lab Venipuncture / Unknown 07/28/2024 8:04 AM DYE FEEDER 07/28/2024 9:44 AM DYE FEEDER Radha Vazquez [facility] LAB - CHEMISTRY ORDERABLES Performing Organization Address [facility] Co de Phone Number [address] [address], [facility] [phone] * (ABNORMAL) LITHIUM LEVEL (07/28/2024 8:04 AM DYE FEEDER) [place], trough <0.20(L) 0.50 - 1.20 mmol/L 07/28/2024 9:52 AM DYE FEEDER [facility] Blood BLOOD SPECIMEN / Unknown Lab Venipuncture / Unknown 07/28/2024 8:04 AM DYE FEEDER 07/28/2024 8:42 AM DYE FEEDER Narrative [facility] - 07/28/2024 9:52 AM DYE FEEDER There is no relationship between peak concentration and degree of intoxication. Response and side effects are individual. Radha Vazquez [facility] LAB - CHEMISTRY ORDERABLES Performing Organization Address [facility]/ZIP Co de Phone Number [address] [address], [place] [phone] * LIPASE BLOOD (07/28/2024 8:04 AM DYE FEEDER) Only the most recent of2 resultswithin the time period is included. Lipase 19 8 - 78 U/L 07/28/2024 11:10 AM DYE FEEDER [facility] Blood BLOOD SPECIMEN / Unknown Lab Venipuncture / Unknown 07/28/2024 8:04 AM DYE FEEDER 07/28/2024 9:44 AM DYE FEEDER Narrative [facility] - 07/28/2024 11:10 AM DYE FEEDER Lipase results from the [employer] Alinity analyzer may not be comparable with other methodologies. Radha Vazquez [facility] LAB - CHEMISTRY ORDERABLES [address] [address], [place] [phone] * LACTIC ACID BLOOD (07/28/2024 8:04 AM DYE FEEDER) [facility] Lactic Acid-Stat 0.9 <=2.0 mmol/L 07/28/2024 10:43 AM DYE FEEDER [facility] Blood BLOOD SPECIMEN / Unknown Lab Venipuncture / Unknown 07/28/2024 8:04 AM DYE FEEDER 07/28/2024 9:46 AM DYE FEEDER Radha Vazquez [facility] LAB - CHEMISTRY ORDERABLES [address] [address], [place] [phone] * FOLATE (07/28/2024 8:04 AM DYE FEEDER) Pathologist [facility] [place] Folate 14.5 7.0 - 31.4 ng/mL 07/28/2024 10:50 AM DYE FEEDER [facility] Blood BLOOD SPECIMEN / Unknown Lab Venipuncture / Unknown 07/28/2024 8:04 AM DYE FEEDER 07/28/2024 9:44 AM DYE FEEDER Radha Vazquez [facility] LAB - CHEMISTRY ORDERABLES Performing Organization Address City/[facility]/ZIP Co de Phone Number [address] [address], [place] [phone] * (ABNORMAL) SALICYLATE LEVEL BLOOD (07/28/2024 8:04 AM [facility]) Pathologist [facility] Salicylate <5(L) 15 - 30 mg/dL 07/28/2024 11:10 AM [facility] Blood BLOOD SPECIMEN / Unknown Lab Venipuncture / Unknown 07/28/2024 8:04 AM DYE FEEDER 07/28/2024 9:44 AM DYE FEEDER Narrative [facility] - 07/28/2024 11:10 AM [facility] This test is not intended for use with low-dose aspirin therapy. Most patients on low-dose aspirin for cardiovascular prophylaxis will have serum concentrations near or below the lower limit of the analytical range. Radha BUSTOS LAB - CHEMISTRY ORDERABLES Performing Organization Address City/[facility]/ZIP Co de Phone Number [address] [address], [facility] [phone] * TSH REFLEX FREE T4 (07/28/2024 8:03 AM [facility]) Only the most recent of2 resultswithin the time period is included. [facility] TSH 1.842 0.350 - 4.940 uIU/mL 07/28/2024 10:41 AM [facility] Blood BLOOD SPECIMEN / Unknown Lab Venipuncture / Unknown 07/28/2024 8:03 AM DYE FEEDER 07/28/2024 9:44 AM [facility] Radha Vazquez [facility] LAB - CHEMISTRY ORDERABLES [facility] [address] [place] [address], [place] [phone] * (ABNORMAL) VITAMIN D 25-HYDROXY (07/28/2024 8:03 AM [facility]) Pathologist [facility] [place] Vitamin D, 25 Hydroxy 14.5(L) 30.0 - 80.0 ng/mL 07/28/2024 10:41 AM [facility] Comment: The recommendations for 25-Hydroxy Vitamin D clinical decision points are as follows: Deficient: <20.0 ng/mL Insufficient: 20.0 - 29.9 ng/mL Sufficient: 30.0 - 100.0 ng/mL Potential Toxicity: >100 ng/mL Reference: The Endocrine Society Clinical Practice Guidelines. 2011 If the 25-Hydroxy Vitamin D results are inconsitent with clinical evidence, it is recommended that follow-up testing using a method such as LC/MS/MS be performed to confirm the result. Blood BLOOD SPECIMEN / Unknown Lab Venipuncture / Unknown 07/28/2024 8:03 AM DYE FEEDER 07/28/2024 9:44 AM DYE FEEDER Radha Vazquez [facility] LAB - CHEMISTRY ORDERABLES Performing Organization Address City/[facility]/ZIP Co de Phone Number [address] [address], [facility] [phone] * VITAMIN B12 (07/28/2024 8:03 AM DYE FEEDER) Vitamin B12 331 213 - 816 pg/mL 07/28/2024 10:41 AM [facility] Blood BLOOD SPECIMEN / Unknown Lab Venipuncture / Unknown 07/28/2024 8:03 AM DYE FEEDER 07/28/2024 9:44 AM DYE FEEDER Radha Vazquez [facility] - CHEMISTRY ORDERABLES Performing Organization Address City/[facility]/ZIP Co de Phone Number [address] [phone], [facility] [phone] * (ABNORMAL) URINALYSIS REFLEX TO MICROSCOPIC NO CULTURE (07/28/2024 1:00 AM DYE FEEDER) Color UA Yellow Straw, Yellow 07/28/2024 1:28 AM [facility] Clarity UA Clear Clear 07/28/2024 1:28 AM [facility] Specific [place] UA 1.018 1.005 - 1.030 07/28/2024 1:28 AM [facility] pH UA 5.0 5.0 - 8.0 pH 07/28/2024 1:28 AM [facility] Protein UA 1+(A) Negative 07/28/2024 1:28 AM [facility] Glucose UA Negative Negative 07/28/2024 1:28 AM [facility] Ketone UA 2+(A) Negative 07/28/2024 1:28 AM [facility] Bilirubin UA Negative Negative 07/28/2024 1:28 AM [facility] Blood UA Negative Negative 07/28/2024 1:28 AM [facility] Nitrite UA Negative Negative 07/28/2024 1:28 AM [facility] Leukocyte Esterase Negative Negative 07/28/2024 1:28 AM [facility] Urobilinogen UA Negative Negative mg/dL 07/28/2024 1:28 AM [facility] RBC UA 0-2 None Seen, 0-2, 3-5 /HPF 07/28/2024 1:28 AM [facility] WBC UA 0-5 None Seen, 0-5 /HPF 07/28/2024 1:28 AM [facility] Squamous Epithelial Cells UA 0-2 None Seen, 0-2, 3-5 /HPF 07/28/2024 1:28 AM [facility] Mucus UA 1+ /LPF 07/28/2024 1:28 AM [facility] Urine URINE SPECIMEN OBTAINED BY CLEAN CATCH PROCEDURE / Unknown Collection / Unknown 07/28/2024 1:00 AM DYE FEEDER 07/28/2024 1:22 AM [facility] Narrative [facility] - 07/28/2024 1:28 AM [facility] Norman Plummer MD LAB - URINALYSIS ORD ERABLES Performing Organization Address City/State/[facility] Co de Phone Number [facility] [address] [place] [phone], [facility] [phone] * XR Chest 2Vw (07/27/2024 5:27 PM DYE FEEDER) Anatomical Region Laterality Modality Chest Digital Radiogra phy 07/27/2024 5:52 PM DYE FEEDER Narrative 07/28/2024 8:04 AM DYE FEEDER PROCEDURE: XR CHEST 2VW, DATE/TIME OF EXAM: 07/27/2024 5:27 PM, LOCATION [facility] INDICATION: R11.2: Nausea and vomiting, unspecified vomiting type ADDITIONAL CLINICAL INFORMATION: Ordering Provider Reason For Exam: ETOH w/d Technologist Note: Additional: COMPARISON: None. FINDINGS/IMPRESSION: No focal consolidation, pneumothorax, or pleural effusion. The cardiomediastinal silhouette is normal. No displaced fractures identified. Report dictated by Keely Bennett Dr, MD (resident care manager rn). Corina Hsu MD have personally reviewed and interpreted this examination/study. > Interpreting Provider: Corina Borrego MD on 07/28/2024 8:04 AM Procedure Note Corina Borrego MD - 07/28/2024 PROCEDURE: XR CHEST 2VW, DATE/TIME OF EXAM: 07/27/2024 5:27 PM, LOCATION [facility] INDICATION: R11.2: Nausea and vomiting, unspecified vomiting type ADDITIONAL CLINICAL INFORMATION: Ordering Provider Reason For Exam: ETOH w/d Technologist Note: Additional: COMPARISON: None. FINDINGS/IMPRESSION: No focal consolidation, pneumothorax, or pleural effusion. The cardiomediastinal silhouette is normal. No displaced fracturesidentified. Report dictated by Keely Bennett Dr, MD (resident care manager rn). Corina Hsu MD have personally reviewed and interpreted this examination/study. > Interpreting Provider: Corina Borrego MD on 07/28/2024 8:04 AM Norman Plummer MD DIAGNOSTIC IMAGING O RDERABLES * TROPONIN-I HIGH SENSITIVE (07/27/2024 5:21 PM DYE FEEDER) [facility] Troponin I High Sensitive 5 <=35 ng/L 07/27/2024 6:15 PM DYE FEEDER [facility] Blood BLOOD SPECIMEN / Unknown Venipuncture / Unknown 07/27/2024 5:21 PM DYE FEEDER 07/27/2024 5:40 PM DYE FEEDER Norman Plummer MD LAB - CHEMISTRY DONTAE PRESCOTT [facility] Organization Address City/State/ZIP Co de Phone Number [facility] [address] [place] [address], [facility] [phone] * PHOSPHORUS BLOOD (07/27/2024 5:21 PM DYE FEEDER) [facility] Phosphorus 3.7 2.8 - 5.1 mg/dL 07/27/2024 6:10 PM DYE FEEDER [facility] Blood BLOOD SPECIMEN / Unknown Venipuncture / Unknown 07/27/2024 5:21 PM DYE FEEDER 07/27/2024 5:40 PM DYE FEEDER Norman Plummer MD LAB - CHEMISTRY DONTAE JORGELEANDRO Performing Organization Address [facility] Co de Phone Number [address] [address], [facility] [phone] * (ABNORMAL) ALCOHOL ETHYL BLOOD (07/27/2024 5:21 PM DYE FEEDER) Pathologist [facility] Ethanol (mg/dL) 73(H) <10 mg/dL 6:10 PM [facility] Ethanol Calculated (g/dL) 0.073(H) <=0.010 g/dL 07/27/2024 6:10 PM [facility] Blood BLOOD SPECIMEN / Unknown Venipuncture / Unknown 07/27/2024 5:21 PM DYE FEEDER 07/27/2024 5:40 PM DYE FEEDER Narrative [facility] - 07/27/2024 6:10 PM DYE FEEDER Ethanol Interp <10: None Detected. Depression of COLD MILL SUPERVISOR: >100 mg/dl Potentially Critical: >250 mg/dl Potentially Fatal >400 mg/dl Ethanol in the patient's blood will contribute to the osmolar gap. Ethanol's contribution to the osmolar gap can be estimated by dividing the concentration of ethanol in mg/dL by 4.6. This test is for clinical use only and does not equal a YUMIKO for legal purposes. Norman Plummer MD LAB - CHEMISTRY DONTAE PRESCOTT Performing Organization Address [facility]/ZIP Co de Phone Number [address] [address], [facility] [phone] * EKG 12-LEAD (07/27/2024 5:10 PM DYE FEEDER) Ventricular Rate 113 BPM [facility] MUSE Atrial Rate 113 BPM [facility] MUSE P-R Interval 160 ms [facility] M[facility] QRS Duration ms 78 ms [facility] Q-T Interval ms 322 ms [facility] QTC Calculation (Bezet) 441 ms [facility] Calculated P [place] 30 degrees [facility] Calculated R [place] 12 degrees [facility] Calculated T [place] 14 degrees [facility] Interpretation EKG SINUS TACHYCARDIA OTHERWISE NORMAL ECG NO PREVIOUS ECGS AVAILABLE Confirmed by PHILIPP TEE MD ([id number]) on 07/29/2024 4:30:46 PM [facility]USE 07/27/2024 5:10 PM DYE FEEDER 07/29/2024 4:30 PM DYE FEEDER Norman Plummer MD ECG ORDERABLES [facility] MUSE from Last 3 Months Advance Directives * Full Code (Latest Code Status on File) Date Activated Date Inactivated Comments 07/27/2024 9:19 PM 07/29/2024 12:50 PM Care Teams Laboratory Engineer Relationship Specialty Start Date End Date None, Physician PCP - General 07/27/24
--- OUTSIDE RECORDS SUMMARY | 2024-09-04 19:07 | XMS_ITS | CONTINUITY OF CARE DOCUMENT ---
Author Name lucila gaytan Address Unknown Organization [facility] Address [address] [place] [address] Phone [phone] Care Team Providers Care Hairspring Truing Inspector Name Role Phone Joan Sauceda MD Unavailable [phone] Kartik Mariee MD Unavailable Kartik Mariee MD Unavailable PROBLEMS Condition Status Date Provider Notes Vitamin D deficiency active Bharathi Butcher Family History of CVA or Stroke: completed - Bharathi Angel MD fatty liver active Bharathi Angel MD Obesity active Bharathi Angel MD Screening active Bharathi Angel MD Pancreatitis;due to etoh active Bharathi haque MD ETOH active Bharathi Angel MD Bipolar disorder active Bharathi Angel MD Sinus tachycardia active Bharathi Angel MD n ml tsh HTN essential active Bharathi Angel MD Hypertriglyceridemia active Bharathi Butcher FAMILY HISTORY OF HEART DISEASE active Bharathi Angel MD STENTS IN [employer] F[employer] Sleep apnea active Bharathi Angel MD does no t want rx Diabetes mellitus active Bharathi Angel MD Diastolic dysfunction active Bharathi Angel MD Hyperlipidemia active Bharathi Angel MD Chest pain active Bryn Subramanian Dyspnea on exertion active Bryn Subramanian ENCOUNTERS Date Type Provider Location Encounter Diag nosis - In-person encounter Office Visit Joan Sauceda MD [facility] Chest painDyspnea on exertion - In-person encounter Office Visit Bharathi Angel MD [facility] Pancreatitis;due to etohHyperlipidemia - In-person encounter Office Visit Bharathi Angel MD [facility] Family History of CVA or Stroke:ScreeningSinus tachycardiaSleep apneaDiabetes mellitusDiastolic dysfunction - In-person encounter Office Visit Bharathi Angel MD [place] [place] [facility] fatty liverObesityScreeningPancreatitis;due to etohETOHBipolar disorderSinus tachycardiaHTN essentialHypertriglyceridemiaFAMILY HISTORY OF HEART DISEASESleep apnea VITAL SIGNS Date Observation Value Provider Body Mass Index (Ratio) 28.87 kg/m2 Bryn Subramanian blood pressure, cuff size large Ke rri Guicho blood pressure, diastolic 82 mm[Hg] Huey rri Guicho blood pressure, systolic 136 mm[Hg] Shilpa Lindo oxygen saturation, oximetry 97 % Maribeth Lindo respiratory rate E&M 12 /min Maribeth angulo pulse rate 87 /min Maribeth Fletcher [facility] weight E&M 207 [lb_av] Maribeth Fletcher [facility] height E&M 71 [in_i] Maribeth Fletcher [facility] Body Mass Index (Ratio) 33.47 kg/m2 Shannan Angel MD respiratory rate E&M 18 /min [facility] blood pressure, resting Yes Tons hernandez [place] blood pressure, diastolic 67 mm[Hg] To nsha Olea blood pressure, systolic 160 mm[Hg] Ton [facility] oxygen saturation, oximetry 98 % [facility] pulse rate 81 /min [facility] weight E&M 240 [lb_av] Tonsha Olea height E&M 71 [in_i] Tonsha Olea Body Mass Index (Ratio) 33.61 kg/m2 Shannan Angel MD blood pressure, diastolic 80 mm[Hg] Da lauren Clint blood pressure, systolic 110 mm[Hg] Dac ia Clint oxygen saturation, oximetry 96 % Margie Clint respiratory rate E&M 16 /min Margie V oss pulse rate 81 /min Margie Clint weight E&M 241 [lb_av] Margie Clint height E&M 71 [in_i] Margie Clint blood pressure, diastolic 70 mm[Hg] Wilfrido Beckernabor Watts blood pressure, systolic 144 mm[Hg] Anali Watts pulse rate 90 /min RockyJade Weavere gabriel oxygen saturation, oximetry 93 % Rocky Weaverenson respiratory rate E&M 18 /min Xiao krishna Watts Body Mass Index (Ratio) 29.90 kg/m2 Virgen Hansen Watts weight E&M 214.4 [lb_av] Rocky Owen robby height E&M 71 [in_i] Rocky Chakraborty tiffanienorma ALLERGIES No Known Drug Allergies RESULTS Date Observation Value Provider Reference Range Interpretation Location 2 lipoprotein, beta, serum, point, quantitative, calculated 82 mg/dL [facility] 0-99 2 very low density lipoproteins 48 mg/dL [facility] 5-40 High 2 HDL cholesterol, serum 40 mg/dL [facility] >39 2 triglyceride, serum, random 239 mg/dL [facility] 0-149 High 2 cholesterol, serum 170 mg/dL [facility] 200-351 6655/05/2 7 folate, serum 10.7 NG/MLM [facility] 4.4 - 31.0 7 vitamin b12, serum 522.3 pg/mL [facility] 211.0 - 946.0 7 free thyroxine index 6.3 ??g/dL [facility] 4.4 - 11.4 7 triiodothyronine uptake 1.2 TBI [facility] 0.8 - 1.3 7 thyroxine, serum, total 7.6 ??G/DL [facility] 4.5 - 11.7 7 thyroid stimulating hormone, serum 2.820 ??IU/ML [facility] 0.270 - 4.200 7 pro brain natriuretic peptide 44.4 pg/mL [facility] 0.0 - 125.0 7 very low density lipoproteins 67.4 mg/dL [facility] 5.0 - 40.0 High 7 LDL/HDL (low-density lipoprotein/high-den sity lipoprotein) ratio 0.9 RATIO [facility] - 7 lipoprotein, beta, serum, point, quantitative, calculated 50.6 (?) [facility] 0.0 - 100.0 7 HDL cholesterol, serum 56.0 mg/dL [facility] 35.0 - 55.0 High 7 cholesterol, serum 174.0 mg/dL [facility] 0.0 - 200.0 7 triglyceride, serum, fasting 337.0 mg/dL [facility] 0.0 - 150.0 High 7 lipase, serum 64.0 U/L [facility] 13.0 - 60.0 High 7 ferritin, serum 1524.0 ng/mL [facility] 30.0 - 400.0 High 7 anion gap, serum 13.3 [facility] - 7 albumin/globulin ratio, serum 2.6 g/dL [facility] 1.1 - 2.5 High 7 globulin, serum 3.0 [facility] 2.3 - 3.8 7 urea nitrogen/creatinine ratio, serum 18.8 [facility] - 7 Estimated Glomerular Filtration Rate (calc) 110.1 (?) [facility] 59.0 - 7 chloride, serum 98.7 mmol/L [facility] 98.0 - 107.0 7 potassium, serum 4.1 mmol/L [facility] 3.5 - 5.1 7 sodium, serum 139.0 mmol/L [facility] 136.0 - 145.0 7 creatinine, serum 0.8 mg/dL [facility] 0.7 - 1.2 7 carbon dioxide, venous blood 27.0 mmol/L [facility] 22.0 - 29.0 7 albumin, serum 4.4 g/dL [facility] 3.5 - 5.2 7 calcium, serum 10.1 mg/dL [facility] 8.6 - 10.2 7 aspartate aminotransferase (SGOT), serum 30.0 1/L [facility] 0.0 - 40.0 7 alkaline phosphatase, serum 66.0 1/L [facility] 40.0 - 130.0 7 alanine aminotransferase (SGPT), serum 32.0 1/L [facility] 0.0 - 41.0 7 protein, total, serum 7.4 g/dL [facility] 6.6 - 8.7 7 bilirubin, serum, total 0.3 mg/dL [facility] 0.0 - 1.2 7 urea nitrogen, blood 15.0 mg/dL [facility] 6.0 - 20.0 7 blood glucose, random 94.0 mg/dL [facility] 74.0 - 99.0 7 amylase, serum 37.0 1/L [facility] 28.0 - 100.0 7 iron, serum 105.0 ug/dL [facility] 31.0 - 144.0 7 hemoglobin A1C, blood, as % of total hemoglobin 5.9 % [facility] 4.0 - 6.0 7 reticulocyte count, absolute 0.109 10*6 CELLS/UL [facility] - 7 reticulocyte count, blood, uncorrected 2.78 % [facility] 0.50 - 2.00 High HISTORY OF MEDICATION USE Medication Status Instructions Dates Provider Indications Com ments rosuvastatin 20 mg tablet active Bryn Subramanian Vascepa 1 gram capsule active Take 2 capsule by mouth twice a day Gina Coburn benazepril 40 mg tablet active once a day Bharathi Angel MD Zetia 10 mg tablet active 1 tablet once a day Bharathi Angel MD Vivitrol 380 mg suspension,exte nded rel recon active Inject 1 vial subcutaneously every four weeks Maribeth Lindo Vitamin B-12 100 mcg tablet active 1 tablet once a day Maribeth Lindo EQ COMPLETE MULTIVIT ADULT 50+ TABS active 1 tablet once a day Maribeth Lindo FENOFIBRATE CAPSULE completed one a day - Bharathi Angel MD gabapentin 300 mg capsule active 1 capsule three times a day Maribeth Lindo acamprosate 333 mg tablet,delayed release (DR/EC) active 2 tablet three times a day Maribeth Lindo quetiapine 200 mg tablet active 1 tablet every night Maribeth Lindo Testone CIK 200 mg/mL kit active Inject 1 ml subcutaneously every two weeks Maribeth Lindo glimepiride 4 mg tablet active 1 tablet twice a day Maribeth Lindo FISH OIL 1000 MG ORAL CAPSULE completed 1 caps daily - Bharathi Angel MD metformin 1,000 mg tablet active 1 tablet twice a day Maribeth Lindo simvastatin 40 mg tablet completed 1 tablet every night - Bryn Subramanian ASPIRIN 81 MG ORAL TABLET active 1 tablet once a day Bharathi Angel MD naltrexone 50 mg tablet active once a day Rocky Watts CHOLINE FENOFIBRATE 135 MG ORAL CAPSULE DELAYED RELEASE completed 1 caps daily - Bharathi Angel MD perphenazine-am itriptyline 4-50 mg tablet active 4 tablet every night Maribeth Spencernenfeldsoniya metoprolol succinate 100 mg tablet extended release 24 hr active 1 tablet once a day Rocky Watts D 400 ORAL CAPSULE active 1 capsule once a day Maribeth Spencerlizbethuzma omeprazole 40 mg capsule,delayed release(DR/EC) active once a day Rocky Watts SOCIAL HISTORY Date Observation Value Provider social history reviewed E&M revi ewed - no changes required Bryn Subramanian social history E&M S moking History: Becki tompkins has never smoked. Bharathi Angel MD social history reviewed E&M revi ewed - no changes required Bharathi Angel MD smoking status Never smoker Bryon Olea social history E&M S moking History: Becki tompkins has never smoked. Bharathi Angel MD social history reviewed E&M revi ewed - no changes required Bharathi Angel MD smoking status Never smoker Margie Jaramillo social history E&M S moking History: Becki tompkins has never smoked. Bharathi Angel MD social history reviewed E&M revi ewed - no changes required Bharathi Angel MD smoking status Never smoker Rocky Ste venjoseline FAMILY HISTORY Family Member Condition Father Family History of Co ronary Artery Disease: Full Brother Family History of Co ronary Artery Disease: Full Brother Family History of CV A or Stroke: Full Brother Family History of Co ronary Artery Disease: Mother Family History of Co ronary Artery Disease: INSURANCE PROVIDERS Payer name Policy type / Coverage type [place] [employer] republic[employer] [facility] CHRONIC COMPLETE ASSURE (PPO C-SNP) Medicare [id number] HEALTHCARE AND FAMILY SERVICES Medicaid 1 [id number] ADVANCE DIRECTIVES Name Date DISCUSSED - NO DECISION MADE TREATMENT PLAN Date Name Performer [id number],S, Bryn Suarez i [id number],C, B P today: 136/82 P rior BP: 160/67 (06/20/2019) Labs Reviewed: C reat: 0.8 (12/05/2015) C hol: 170 (06/21/2019) HDL: 40 (06/21/2019) [facility] [id number],C,n ew onset and is not normal for him, will check echo and stress test [facility] [id number],C,e xertional, will check routine stress test [facility] Electrophysiology [facility] Electrophysiology: B P today: 136/82 P rior BP: 160/67 (06/20/2019) Labs Reviewed: C reat: 0.8 (12/05/2015) C hol: 170 (06/21/2019) HDL: 40 (06/21/2019) [facility] Electrophysiology:ne w onset and is not normal for him, will check echo and stress test [facility] Electrophysiology:ex ertional, will check routine stress test [facility] Cardiology:nml folat e n eg nuc 16, neg iron , nml b12 N O CVA BY CT Bharathi Angel MD Cardiology: N O GS Bharathi Angel MD Cardiology: T he following medications were removed from the medication list: Fenofibrate Capsule (Fenofibrate micronized caps) ..... One a day Choline Fenofibrate 135 Mg Oral Capsule Delayed Release (Choline fenofibrate) ..... 1 caps daily His updated medication list for this problem includes: Zetia 10 Mg Oral Tablet (Ezetimibe) ..... One tab. daily with his simvastatitn Simvastatin 40 Mg Oral Tablet (Simvastatin) ..... 1 tab at bedtime C HOL: 174.0 (12/05/2015) HDL: 56.0 (12/05/2015) T.0 (12/05/2015) Bharathi Angel MD Cardiology Bharathi Angel MD Cardiology Bharathi Angel MD Cardiology: H is updated medication list for this problem includes: Benazepril Hcl 40 Mg Oral Tablet (Benazepril hcl) ..... One a day Aspirin 81 Mg Oral Tablet (Aspirin) ..... One tab. daily Metoprolol Succinate Er 100 Mg Oral Tablet Extended Release 24 Hour (Metoprolol succinate) ..... One tab. daily BP today: 160/67 P rior BP: 110/80 (06/07/2018) Labs Reviewed: C reat: 0.8 (12/05/2015) C hol: 174.0 (12/05/2015) HDL: 56.0 (12/05/2015) T.0 (12/05/2015) Bharathi Angel MD Cardiology: n ml pro Bharathi Angel MD Cardiology: T he following medications were removed from the medication list: Fenofibrate Capsule (Fenofibrate micronized caps) ..... One a day His updated medication list for this problem includes: Zetia 10 Mg Oral Tablet (Ezetimibe) ..... One tab. daily with his simvastatitn Simvastatin 40 Mg Oral Tablet (Simvastatin) ..... 1 tab at bedtime Choline Fenofibrate 135 Mg Oral Capsule Delayed Release (Choline fenofibrate) ..... 1 caps daily C HOL: 174.0 (12/05/2015) HDL: 56.0 (12/05/2015) T.0 (12/05/2015) Bharathi Angel MD Cardiology follow up Bharathi haque MD Cardiology follow up Bharathi haque MD Cardiology follow up Bharathi haque MD Cardiology follow up:better with faheem Angel MD Cardiology follow up:nml pro Johnny Angel MD Cardiology follow up Bharathi haque MD Cardiology follow up : B P today: 110/80 P rior BP: 144/70 (12/04/2015) Labs Reviewed: C reat: 0.8 (12/05/2015) C hol: 174.0 (12/05/2015) HDL: 56.0 (12/05/2015) T.0 (12/05/2015) His updated medication list for this problem includes: Aspirin 81 Mg Oral Tablet (Aspirin) ..... One tab. daily Metoprolol Succinate Er 100 Mg Oral Tablet Extended Release 24 Hour (Metoprolol succinate) ..... One tab. daily Bharathi Angel MD Cardiology follow up Bharathi haque MD Cardiology follow up Bharathi haque MD Cardiology follow up :neg nuc 16, neg iron , nml b12 N O CVA BY CT Bharathi Angel MD Cardiology:MANY SX WILL [place] Laura Angel MD Cardiology Bharathi Angel MD Cardiology Bharathi Angel MD Cardiology Bharathi Angel MD Cardiology Bharathi Angel MD Cardiology: H is updated medication list for this problem includes: Fenofibrate Micronized 134 Mg Oral Caps (Fenofibrate micronized) ..... Once daily Atorvastatin Calcium 40 Mg Oral Tabs (Atorvastatin calcium) ..... Once daily Bharathi Angel MD Cardiology:DUE TO PA NCREATIS DUE TO ETHOH H is updated medication list for this problem includes: Metoprolol Succinate 100 Mg Tb24 (Metoprolol succinate) ..... One tab. daily Bharathi Angel MD Cardiology:NO CVA BY CT Bharathi kelly MD Cardiology Bharathi Angel MD Cardiology:NO GS Bharathi Butcher Date Name Stress Routine Complete Echo CT, Coronary Calcium Score LIPID PANEL LIPID PANEL CT, Coronary Calcium Score Sleep Study Complete Echo VITAMIN D, 25-HYDROX Y, LC/MS/MS HEMOGLOBIN A1c RETICULOCYTE COUNT IRON AND TOTAL IRON BINDING CAPACITY FERRITIN FOLATE, SERUM VITAMIN B12 THYROID PANEL WITH T SH, 3RD GENERATION PROBNP, N TERMINAL STR - Adenosine LIPID PANEL LIPASE AMYLASE COMPREHENSIVE METABO LIC PANEL W/EGFR HISTORY OF PROCEDURES Procedure Date Procedure Name Provider Procedure Notes S tatus EKG Joan shin MD completed EKG Bharathi Angel MD complete d EKG Bharathi Angel MD complete d Stress EKG Chadd Bonner MD completed Cardiolite, 2 units Bharathi Angel MD completed SPECT Images Chadd Bonner MD complet ed EKG Bharathi Angel MD complete d SNOMED-CT: [id number] Current Medications Documented Bharathi Angel MD completed
--- OUTSIDE RECORDS SUMMARY | 2024-09-04 19:07 | XMS_ITS | Clinical Summary ---
Author Organization [facility] [address] Address [address] [place] [address] Care Team Providers Care Channel Director Name Role Phone None, Physician Primary Care Provider Unavailabl e Source Comments [facility] [employer],non-owned Affiliates and Associated Physician Practices is amultiple site organization consisting of ambulatory clinics and hospital sitesin [place], [place]. This disclosure is being madepursuant to the Care Everywhere program and may not contain all information available regarding this patient. Last updated 18.[employer] Influence Allergies No known active allergies Medications * [...] dependence with unsp ecified alcohol-induced disorder 07/27/2024 Encounters Date Type Department Care Team Description 07/31/2024 Telephone Transitional Care at [address] [address] Danielle Aj, mobile home set up person 07/31/2024 Telephone Transitional Care at [address] [address] Danielle Aj, mobile home set up person 07/30/2024 Telephone Transitional Care at [address] [address] Mayra Rodriguez, mobile home set up person 07/27/2024 6:27 PM SOLE ASSESSOR - 07/29/2024 11:50 AM SOLE ASSESSOR Hospital Encounter [facility] [address] [place] [phone] Norman Plummer MD Morreale, Peter J III, MD Nguyen, Christopher, DO Brotherton, Timothy, MD Madi, Mahmoud, MD Hospitalist Discharge Disposition: Home or Self Care 07/27/2024 Travel from Last 3 Months Social History Tobacco Use Types Packs/Day Years Used Date Smoking Tobacco: Never Assessed Sex and Gender Information Value Date Recorded Sex Assigned at Not on file Gender Identity Not on file Sexual Orientation Not on file Last Filed Vital Signs Vital Sign Reading Time Taken Comments Blood Pressure 143/86 07/29/2024 8:37 AM SOLE ASSESSOR Pulse 76 07/29/2024 8:37 AM SOLE ASSESSOR Temperature 36.2 C (97.2 F) 07/29/2024 8:37 AM SOLE ASSESSOR Respiratory Rate 16 07/29/2024 8:37 AM SOLE ASSESSOR Oxygen Saturation 96% 07/29/2024 8:37 AM SOLE ASSESSOR Inhaled Oxygen Concentration - - Weight 89.2 kg (196 lb 11.2 oz) 07/27/2024 9:02 PM SOLE ASSESSOR Height 177.8 cm (5' 10 ) 07/27/2024 9:02 PM SOLE ASSESSOR Body Mass Index 28.22 07/27/2024 9:02 PM SOLE ASSESSOR Plan of Treatment Health Maintenance Due Date Last Done Comments COLOGUARD (AGES 45-75) - COL ON CA SCREENING 1967 COLON MONITORING 1967 COLONOSCOPY - COLON CA SCREENING 1967 CT COLONOGRAPHY - COLON CA SCREENING 1967 Colorectal Cancer Screening 1967 FIT - COLON CA SCREENING 1967 FLEX SIG - COLON CA SCREENING 1967 HIV SCREENING 12/21/1982 HEPATITIS C SCREENING 12/17/1985 DTAP/TDAP/TD VACCINES (1 - Tdap) 12/21/1986 HEPATITIS B VACCINE (1 of 3 - 19+ 3-dose series) 12/21/1986 PNEUMOCOCCAL VACCINE 50+ (1 of 2 - PCV) 12/21/1986 ZOSTER VACCINE (1 of 2) 12/21/2017 COVID-19 VACCINE ( - 2023-2 5 season) 2024 INFLUENZA VACCINE (#1) 2024 DEPRESSION SCREENING 07/11/2024 HIB VACCINE Aged Out No longer eligi ble based on patient's age to complete this topic HPV VACCINE Aged Out No longer eligi ble based on patient's age to complete this topic MENINGOCOCCAL (Group B) VACCINE Aged Out No longer eligible based on patient's age to complete this topic MENINGOCOCCAL VACCINE Aged Out No noemy kim eligible based on patient's age to complete this topic Procedures Procedure Name Priority Date/Time Associated Diagnosis Comments CARDIAC EKG ORDER 07/30/2024 1:0 8 PM SOLE ASSESSOR GLUCOSE - POINT OF CARE Routine 07/29/19 8:38 AM SOLE ASSESSOR CBC W AUTO DIFFERENTIAL AM Draw 07/29/19 6:08 AM SOLE ASSESSOR Alcohol withdrawal syndrome without complication (HCC) COMPREHENSIVE METABOLIC PANEL AM Draw 07/29/2024 6:08 AM SOLE ASSESSOR Alcohol withdrawal syndrome without complication (HCC) GLUCOSE - POINT OF CARE Routine 07/29/19 4:01 AM SOLE ASSESSOR GLUCOSE - POINT OF CARE Routine 07/28/19 7:38 PM SOLE ASSESSOR GLUCOSE - POINT OF CARE Routine 07/28/19 4:16 PM SOLE ASSESSOR GLUCOSE - POINT OF CARE Routine 07/28/19 11:19 AM SOLE ASSESSOR BASIC METABOLIC PANEL (CALCIUM TOTAL) Routine 07/28/2024 8:04 AM SOLE ASSESSOR Alcohol withdrawal syndrome without complication (HCC) Nausea and vomiting, unspecified vomiting type Alcohol dependence with unspecified alcohol-induced disorder (HCC) Anxiety states FOLATE Routine 07/28/2024 8:04 AM SOLE ASSESSOR Alcohol withdrawal syndrome without complication (HCC) Nausea and vomiting, unspecified vomiting type Alcohol dependence with unspecified alcohol-induced disorder (HCC) Anxiety states LIPASE BLOOD AM Draw 07/28/2024 8:04 AM SOLE ASSESSOR Alcohol withdrawal syndrome without complication (HCC) Nausea and vomiting, unspecified vomiting type Alcohol dependence with unspecified alcohol-induced disorder (HCC) Anxiety states HYDROXYBUTYRATE BETA AM Draw 07/28/2024 8:04 AM SOLE ASSESSOR Alcohol withdrawal syndrome without complication (HCC) Nausea and vomiting, unspecified vomiting type Alcohol dependence with unspecified alcohol-induced disorder (HCC) Anxiety states SALICYLATE LEVEL BLOOD AM Draw 8:04 AM SOLE ASSESSOR Alcohol withdrawal syndrome without complication (HCC) Nausea and vomiting, unspecified vomiting type Alcohol dependence with unspecified alcohol-induced disorder (HCC) Anxiety states LITHIUM LEVEL Routine 07/28/2024 8:04 AM SOLE ASSESSOR Alcohol withdrawal syndrome without complication (HCC) Nausea and vomiting, unspecified vomiting type Alcohol dependence with unspecified alcohol-induced disorder (HCC) Anxiety states HEMOGLOBIN A1C Routine 07/28/2024 8:04 AM SOLE ASSESSOR Alcohol withdrawal syndrome without complication (HCC) Nausea and vomiting, unspecified vomiting type Alcohol dependence with unspecified alcohol-induced disorder (HCC) Anxiety states MAGNESIUM BLOOD Routine 07/28/2024 8:04 AM SOLE ASSESSOR Alcohol withdrawal syndrome without complication (HCC) Nausea and vomiting, unspecified vomiting type Alcohol dependence with unspecified alcohol-induced disorder (HCC) Anxiety states CBC W/O DIFFERENTIAL Routine 07/28/2024 8:04 AM SOLE ASSESSOR Alcohol withdrawal syndrome without complication (HCC) Nausea and vomiting, unspecified vomiting type Alcohol dependence with unspecified alcohol-induced disorder (HCC) Anxiety states LACTIC ACID BLOOD Routine 07/28/2024 8:0 4 AM SOLE ASSESSOR Alcohol withdrawal syndrome without complication (HCC) Nausea and vomiting, unspecified vomiting type Alcohol dependence with unspecified alcohol-induced disorder (HCC) Anxiety states VITAMIN D 25-HYDROXY AM Draw 07/28/2024 8:03 AM SOLE ASSESSOR Alcohol withdrawal syndrome without complication (HCC) Nausea and vomiting, unspecified vomiting type Alcohol dependence with unspecified alcohol-induced disorder (HCC) Anxiety states VITAMIN B12 AM Draw 07/28/2024 8:03 AM SOLE ASSESSOR Alcohol withdrawal syndrome without complication (HCC) Nausea and vomiting, unspecified vomiting type Alcohol dependence with unspecified alcohol-induced disorder (HCC) Anxiety states TSH REFLEX FREE T4 Routine 07/28/2024 8: 03 AM SOLE ASSESSOR Alcohol withdrawal syndrome without complication (HCC) Nausea and vomiting, unspecified vomiting type Alcohol dependence with unspecified alcohol-induced disorder (HCC) Anxiety states GLUCOSE - POINT OF CARE Routine 07/28/19 7:26 AM SOLE ASSESSOR URINALYSIS REFLEX TO MICROSCOPIC NO CULTURE STAT 07/28/2024 1:00 AM SOLE ASSESSOR GLUCOSE - POINT OF CARE Routine 07/27/19 9:52 PM SOLE ASSESSOR XR CHEST 2VW STAT 07/27/2024 5:27 PM SOLE ASSESSOR Nausea and vomiting, unspecified vomiting type TROPONIN-I HIGH SENSITIVE STAT 07/27/2024 5:21 PM SOLE ASSESSOR TSH REFLEX FREE T4 STAT 07/27/2024 5: 21 PM SOLE ASSESSOR PHOSPHORUS BLOOD STAT 07/27/2024 5:21 PM SOLE ASSESSOR LIPASE BLOOD STAT 07/27/2024 5:21 PM SOLE ASSESSOR ALCOHOL ETHYL BLOOD STAT 07/27/2024 5 :21 PM SOLE ASSESSOR COMPREHENSIVE METABOLIC PANEL STAT 07/27/2024 5:21 PM SOLE ASSESSOR CBC W AUTO DIFFERENTIAL STAT 07/27/19 5:21 PM SOLE ASSESSOR EKG 12-LEAD STAT 07/27/2024 5:10 PM SOLE ASSESSOR Nausea and vomiting, unspecified vomiting type from Last 3 Months Results * CARDIAC EKG ORDER (07/30/2024 1:08 PM SOLE ASSESSOR) Narrative 07/30/2024 1:08 PM SOLE ASSESSOR Ordered by an unspecified provider. Scanned Document CARDIAC SERVICES ORD ERABLES * (ABNORMAL) GLUCOSE - POINT OF CARE (07/29/2024 8:38 AM SOLE ASSESSOR) Only the most recent of7 resultswithin the time period is included. Glucose WB/POC 137(H) 70 - 99 mg/dL 07/29/2024 8:43 AM SOLE ASSESSOR [facility] Specimen Type Cap Fingerstick 2024 8:43 AM SOLE ASSESSOR [facility] Blood BLOOD SPECIMEN / Unknown 07/29/2024 8:38 AM SOLE ASSESSOR 07/29/2024 8:43 AM SOLE ASSESSOR Mani Beckham MD LAB - POINT OF CARE ORDERABLES [facility] [address] [place] [address], [facility] [phone] * (ABNORMAL) CBC W AUTO DIFFERENTIAL (07/29/2024 6:08 AM [facility]) Only the most recent of2 resultswithin the time period is included. WBC 2.1(L) 4.0 - 10.7 x10E9/L 07/29/2024 7:44 AM [facility] RBC Count 3.39(L) 4.30 - 5.80 x10E12/L 07/29/2024 7:44 AM [facility] Hemoglobin 10.8(L) 13.3 - 17.5 g/dL 07/29/2024 7:44 AM [facility] Hematocrit 31.3(L) 38.7 - 51.1 % 07/29/2024 7:44 AM [facility] MCV 92.3 80.0 - 98.0 fL 07/29/2024 7:44 AM [facility] MCH 31.9 26.7 - 33.6 pg 07/29/2024 7:44 AM [facility] MCHC 34.5 31.7 - 36.3 g/dL 07/29/2024 7:44 AM [facility] RDW-CV 13.2 11.3 - 14.8 % 07/29/2024 7:44 AM [facility] Platelet Count 83(L) 150 - 420 x10E9/L 07/29/2024 7:44 AM [facility] MPV 10.5 7.8 - 11.4 fL 07/29/2024 7:44 AM [facility] Neutrophil % 60.3 41.0 - 74.0 % 07/29/2024 7:44 AM [facility] Lymphocyte % 23.8 17.0 - 47.0 % 07/29/2024 7:44 AM [facility] Monocyte % 9.3 3.0 - 11.0 % 07/29/2024 7:44 AM [facility] Eosinophil % 5.6 0.0 - 7.0 % 07/29/2024 7:44 AM [facility] Basophil % 0.5 0.0 - 1.6 % 07/29/2024 7:44 AM [facility] Immature Granulocytes % 0.5 0.0 - 1.0 % 07/29/2024 7:44 AM [facility] Neutrophil Absolute 1.29(L) 1.60 - 7.50 x10E9/L 07/29/2024 7:44 AM [facility] Lymphocyte Absolute 0.51(L) 1.00 - 4.40 x10E9/L 07/29/2024 7:44 AM [facility] Monocyte Absolute 0.20 0.15 - 1.00 x10E9/L 07/29/2024 7:44 AM [facility] Eosinophil Absolute 0.12 0.00 - 0.60 x10E9/L 07/29/2024 7:44 AM [facility] Basophil Absolute 0.01 0.00 - 0.13 x10E9/L 07/29/2024 7:44 AM [facility] Blood BLOOD SPECIMEN / Unknown Lab Venipuncture / Unknown 07/29/2024 6:08 AM [facility] 07/29/2024 7:10 AM [facility] Joon Davis MD LAB - HEMATOLOGY O RDERABLES Performing Organization Address [facility]/State/[facility] Co de Phone Number [facility] [address] [place] [address], [facility] [phone] * (ABNORMAL) COMPREHENSIVE METABOLIC PANEL (07/29/2024 6:08 AM [facility]) Only the most recent of2 resultswithin the time period is included. BUN 8 7 - 26 mg/dL 07/29/2024 8:07 AM [facility] Creatinine 0.66(L) 0.71 - 1.16 mg/dL 07/29/2024 8:07 AM [facility] Sodium 140 136 - 145 mmol/L 07/29/2024 8:07 AM [facility] Potassium 3.6 3.5 - 4.5 mmol/L 07/29/2024 8:07 AM [facility] Chloride 106 98 - 107 mmol/L 07/29/2024 8:07 AM [facility] CO2 26 22 - 29 mmol/L 07/29/2024 8:07 AM [facility] Glucose 147(H) 70 - 99 mg/dL 07/29/2024 8:07 AM [facility] Calcium 9.0 8.4 - 10.2 mg/dL 07/29/2024 8:07 AM [facility] Protein Total 5.8(L) 6.0 - 8.3 g/dL 07/29/2024 8:07 AM [facility] Albumin 3.3(L) 3.4 - 5.0 g/dL 07/29/2024 8:07 AM [facility] Bilirubin Total 0.6 0.2 - 1.2 mg/dL 07/29/2024 8:07 AM [facility] Alkaline Phosphatase 57 40 - 150 U/L 07/29/2024 8:07 AM [facility] ALT 21 5 - 55 U/L 07/29/2024 8:07 AM [facility] AST 27 5 - 34 U/L 07/29/2024 8:07 AM [facility] Anion Gap 8 6 - 16 07/29/2024 8:07 AM [facility] BUN/Creatinine Ratio 12 7 - 23 07/29/2024 8:07 AM [facility] Osmolality Calculated 291 275 - 295 mOsm/kg 07/29/2024 8:07 AM [facility] Albumin/Globulin Ratio 1.3 1.1 - 2.3 07/29/2024 8:07 AM [facility] eGFR by CKD-EPI >90 >=90 mL/min/1.7 3 m2 07/29/2024 8:07 AM [facility] Blood BLOOD SPECIMEN / Unknown Lab Venipuncture / Unknown 07/29/2024 6:08 AM SOLE ASSESSOR 07/29/2024 7:08 AM [facility] Joon Davis MD LAB - CHEMISTRY OR DERABLES [facility] [address] [place] [address], [facility] [phone] * (ABNORMAL) HYDROXYBUTYRATE BETA (07/28/2024 8:04 AM SOLE ASSESSOR) Beta-Hydroxybu tyrate 0.89(H) <0.50 mmol/L 07/28/2024 11:10 AM [facility] Blood BLOOD SPECIMEN / Unknown Lab Venipuncture / Unknown 07/28/2024 8:04 AM SOLE ASSESSOR 07/28/2024 9:44 AM SOLE ASSESSOR Radha Allen George [facility] LAB - CHEMISTRY ORDERABLES [facility] [address] [place] [address], [facility] [phone] * HEMOGLOBIN A1C (07/28/2024 8:04 AM [facility]) Hemoglobin A1c 5.6 <=5.6 % 07/28/2024 11:11 AM [facility] Estimated Average Glucose 114 mg/dL 07/28/2024 11:11 AM [facility] Comment: HbA1c Interpretation: Normal : < 5.7% Pre-diabetes: 5.7-6.4% Diabetes: Equal to or greater than 6.5% Test results diagnostic of diabetes should be repeated for confirmation. Treatment target values recommended by ADA and other clinical organizations should be used to evaluate metabolic control in patients. Reference: [place] [employer], Standards of Care in Diabetes -2020 In patients 70 years and older consider HbA1c target range of 7.0-7.5% (Reference: Jonah Cordon et al. JAMDA. 2012) The Sebia assay for the measurement of HbA1c is a National Glycohemoglobin Standardization Program (NGSP) certified method. Blood BLOOD SPECIMEN / Unknown Lab Venipuncture / Unknown 07/28/2024 8:04 AM SOLE ASSESSOR 07/28/2024 8:45 AM SOLE ASSESSOR Radha Allen George [facility] LAB - CHEMISTRY ORDERABLES [facility] [address] [place] [address], [place] [phone] * (ABNORMAL) CBC W/O DIFFERENTIAL (07/28/2024 8:04 AM [facility]) WBC 3.5(L) 4.0 - 10.7 x10E9/L 07/28/2024 8:59 AM [facility] RBC Count 3.50(L) 4.30 - 5.80 x10E12/L 07/28/2024 8:59 AM [facility] Hemoglobin 10.9(L) 13.3 - 17.5 g/dL 07/28/2024 8:59 AM [facility] Hematocrit 32.8(L) 38.7 - 51.1 % 07/28/2024 8:59 AM [facility] MCV 93.7 80.0 - 98.0 fL 07/28/2024 8:59 AM [facility] MCH 31.1 26.7 - 33.6 pg 07/28/2024 8:59 AM [facility] MCHC 33.2 31.7 - 36.3 g/dL 07/28/2024 8:59 AM [facility] RDW-CV 13.4 11.3 - 14.8 % 07/28/2024 8:59 AM [facility] Platelet Count 100(L) 150 - 420 x10E9/L 07/28/2024 8:59 AM [facility] MPV 10.6 7.8 - 11.4 fL 07/28/2024 8:59 AM [facility] Blood BLOOD SPECIMEN / Unknown Lab Venipuncture / Unknown 07/28/2024 8:04 AM [facility] 07/28/2024 8:44 AM [facility] Radha Vazquez APRN-[employer] LAB - HEMATOLOGY ORDERABLES [address] [address], [facility] [phone] * (ABNORMAL) BASIC METABOLIC PANEL (CALCIUM TOTAL) (07/28/2024 8:04 AM [facility]) BUN 9 7 - 26 mg/dL 07/28/2024 11:10 AM [facility] Creatinine 0.73 0.71 - 1.16 mg/dL 07/28/2024 11:10 AM [facility] Sodium 135(L) 136 - 145 mmol/L 07/28/2024 11:10 AM [facility] Potassium 3.6 3.5 - 4.5 mmol/L 07/28/2024 11:10 AM [facility] Chloride 103 98 - 107 mmol/L 07/28/2024 11:10 AM [facility] CO2 20(L) 22 - 29 mmol/L 07/28/2024 11:10 AM [facility] Glucose 239(H) 70 - 99 mg/dL 07/28/2024 11:10 AM [facility] Calcium 8.6 8.4 - 10.2 mg/dL 07/28/2024 11:10 AM [facility] Anion Gap 12 6 - 16 07/28/2024 11:10 AM [facility] BUN/Creatinine Ratio 12 7 - 23 07/28/2024 11:10 AM [facility] Osmolality Calculated 286 275 - 295 mOsm/kg 07/28/2024 11:10 AM [facility] eGFR by CKD-EPI >90 >=90 mL/min/1.7 3 m2 07/28/2024 11:10 AM [facility] Blood BLOOD SPECIMEN / Unknown Lab Venipuncture / Unknown 07/28/2024 8:04 AM SOLE ASSESSOR 07/28/2024 9:44 AM SOLE ASSESSOR Narrative Authorizing Provider Result Miah BUSTOS LAB - CHEMISTRY ORDERABLES Performing Organization Address [facility]/State/[facility] Co de Phone Number [address] [address] [phone] * MAGNESIUM BLOOD (07/28/2024 8:04 AM SOLE ASSESSOR) Magnesium 1.6 1.6 - 2.6 mg/dL 07/28/2024 11:10 AM [facility] Blood BLOOD SPECIMEN / Unknown Lab Venipuncture / Unknown 07/28/2024 8:04 AM SOLE ASSESSOR 07/28/2024 9:44 AM SOLE ASSESSOR Narrative Authorizing Provider Result Miah BUSTOS LAB - CHEMISTRY ORDERABLES Performing Organization Address City/[facility]/ZIP Co de Phone Number [address] [address], [facility] [phone] * (ABNORMAL) LITHIUM LEVEL (07/28/2024 8:04 AM SOLE ASSESSOR) Pathologist [facility], trough <0.20(L) 0.50 - 1.20 mmol/L 07/28/2024 9:52 AM SOLE ASSESSOR [facility] Blood BLOOD SPECIMEN / Unknown Lab Venipuncture / Unknown 07/28/2024 8:04 AM SOLE ASSESSOR 07/28/2024 8:42 AM SOLE ASSESSOR Narrative [facility] - 07/28/2024 9:52 AM SOLE ASSESSOR There is no relationship between peak concentration and degree of intoxication. Response and side effects are individual. Radha Vazquez [facility] LAB - CHEMISTRY ORDERABLES Performing Organization Address [facility] Co de Phone Number [address] [address], [facility] [phone] * LIPASE BLOOD (07/28/2024 8:04 AM SOLE ASSESSOR) Only the most recent of2 resultswithin the time period is included. [facility] Lipase 19 8 - 78 U/L 07/28/2024 11:10 AM [facility] Blood BLOOD SPECIMEN / Unknown Lab Venipuncture / Unknown 07/28/2024 8:04 AM SOLE ASSESSOR 07/28/2024 9:44 AM SOLE ASSESSOR Narrative [facility] - 07/28/2024 11:10 AM SOLE ASSESSOR Lipase results from the Souza Alinity analyzer may not be comparable with other methodologies. Radha Vazquez [facility] LAB - CHEMISTRY ORDERABLES Performing Organization Address City/[facility]/ZIP Co de Phone Number [address] [address], [facility] [phone] * LACTIC ACID BLOOD (07/28/2024 8:04 AM SOLE ASSESSOR) [facility] Lactic Acid-Stat 0.9 <=2.0 mmol/L 07/28/2024 10:43 AM SOLE ASSESSOR [facility] Blood BLOOD SPECIMEN / Unknown Lab Venipuncture / Unknown 07/28/2024 8:04 AM SOLE ASSESSOR 07/28/2024 9:46 AM SOLE ASSESSOR Radha Vazquez [facility] LAB - CHEMISTRY ORDERABLES [address] [address], [facility] [phone] * FOLATE (07/28/2024 8:04 AM SOLE ASSESSOR) Folate 14.5 7.0 - 31.4 ng/mL 07/28/2024 10:50 AM [facility] Blood BLOOD SPECIMEN / Unknown Lab Venipuncture / Unknown 07/28/2024 8:04 AM SOLE ASSESSOR 07/28/2024 9:44 AM SOLE ASSESSOR Radha Vazquez [facility] LAB - CHEMISTRY ORDERABLES Performing Organization Address City/[facility]/ZIP Co de Phone Number [address] [address], [facility] [phone] * (ABNORMAL) SALICYLATE LEVEL BLOOD (07/28/2024 8:04 AM SOLE ASSESSOR) Salicylate <5(L) 15 - 30 mg/dL 07/28/2024 11:10 AM [facility] Blood BLOOD SPECIMEN / Unknown Lab Venipuncture / Unknown 07/28/2024 8:04 AM SOLE ASSESSOR 07/28/2024 9:44 AM SOLE ASSESSOR Narrative [facility] - 07/28/2024 11:10 AM SOLE ASSESSOR This test is not intended for use with low-dose aspirin therapy. Most patients on low-dose aspirin for cardiovascular prophylaxis will have serum concentrations near or below the lower limit of the analytical range. Radha Vazquez [facility] LAB - CHEMISTRY ORDERABLES Performing Organization Address City/[facility]/ZIP Co de Phone Number [address] [address], [facility] [phone] * TSH REFLEX FREE T4 (07/28/2024 8:03 AM SOLE ASSESSOR) Only the most recent of2 resultswithin the time period is included. TSH 1.842 0.350 - 4.940 uIU/mL 07/28/2024 10:41 AM SOLE ASSESSOR [facility] Blood BLOOD SPECIMEN / Unknown Lab Venipuncture / Unknown 07/28/2024 8:03 AM SOLE ASSESSOR 07/28/2024 9:44 AM SOLE ASSESSOR Neena George [facility] LAB - CHEMISTRY ORDERABLES Performing Organization Address City/[facility]/ZIP Co de Phone Number [address] [address], [facility] [phone] * (ABNORMAL) VITAMIN D 25-HYDROXY (07/28/2024 8:03 AM SOLE ASSESSOR) Vitamin D, 25 Hydroxy 14.5(L) 30.0 - 80.0 ng/mL 07/28/2024 10:41 AM [facility] Comment: The recommendations for 25-Hydroxy Vitamin D [...] Lab Venipuncture / Unknown 07/28/2024 8:03 AM SOLE ASSESSOR 07/28/2024 9:44 AM SOLE ASSESSOR Radha Vazquez [facility] LAB - CHEMISTRY ORDERABLES Performing Organization Address City/[facility]/ZIP Co de Phone Number [address] [address], [place] [phone] * VITAMIN B12 (07/28/2024 8:03 AM SOLE ASSESSOR) Pathologist [facility] Vitamin B12 331 213 - 816 pg/mL 07/28/2024 10:41 AM [facility] Blood BLOOD SPECIMEN / Unknown Lab Venipuncture / Unknown 07/28/2024 8:03 AM SOLE ASSESSOR 07/28/2024 9:44 AM [facility] Radha Vazquez [employer] LAB - CHEMISTRY ORDERABLES Performing Organization Address [facility]/ZIP Co de Phone Number [address] [phone] [phone] * (ABNORMAL) URINALYSIS REFLEX TO MICROSCOPIC NO CULTURE (07/28/2024 1:00 AM SOLE ASSESSOR) Color UA Yellow Straw, Yellow 07/28/2024 1:28 AM [facility] Clarity UA Clear Clear 07/28/2024 1:28 AM [facility] Specific [place] UA 1.018 1.005 - 1.030 07/28/2024 1:28 AM [facility] pH UA 5.0 5.0 - 8.0 pH 07/28/2024 1:28 AM [facility] Protein UA 1+(A) Negative 07/28/2024 1:28 AM [facility] Glucose UA Negative Negative 07/28/2024 1:28 AM [facility] Ketone UA 2+(A) Negative 07/28/2024 1:28 AM [facility] Bilirubin UA Negative Negative 07/28/2024 1:28 AM [facility] Blood UA Negative Negative 07/28/2024 1:28 AM [facility] Nitrite UA Negative Negative 07/28/2024 1:28 AM [facility] Leukocyte Esterase Negative Negative 07/28/2024 1:28 AM [facility] Urobilinogen UA Negative Negative mg/dL 07/28/2024 1:28 AM [facility] RBC UA 0-2 None Seen, 0-2, 3-5 /HPF 07/28/2024 1:28 AM [facility] WBC UA 0-5 None Seen, 0-5 /HPF 07/28/2024 1:28 AM [facility] Squamous Epithelial Cells UA 0-2 None Seen, 0-2, 3-5 /HPF 07/28/2024 1:28 AM [facility] Mucus UA 1+ /LPF 07/28/2024 1:28 AM [facility] Urine URINE SPECIMEN OBTAINED BY CLEAN CATCH PROCEDURE / Unknown Collection / Unknown 07/28/2024 1:00 AM [facility] 07/28/2024 1:22 AM [facility]ESS[facility] Narrative [facility] - 07/28/2024 1:28 AM [facility] Norman Plummer MD LAB - URINALYSIS ORD ERABLES [facility] [address] [place] [address], [facility] [phone] * XR Chest 2Vw (07/27/2024 5:27 PM [facility]ESS[facility]) Anatomical Region Laterality Modality Chest Digital Radiogra phy 07/27/2024 5:52 PM [facility] Narrative 07/28/2024 8:04 AM [facility] PROCEDURE: XR CHEST 2VW, DATE/TIME OF EXAM: 07/27/2024 5:27 PM, LOCATION [facility] INDICATION: R11.2: Nausea and vomiting, unspecified vomiting type ADDITIONAL CLINICAL INFORMATION: Ordering Provider Reason For Exam: ETOH w/d Technologist Note: Additional: COMPARISON: None. FINDINGS/IMPRESSION: No focal consolidation, pneumothorax, or pleural effusion. The cardiomediastinal silhouette is normal. No displaced fractures identified. Report dictated by Keely Bennett Dr, MD (interventional radiology technologist). I, Corina Borrego MD have personally reviewed and interpreted this examination/study. > Interpreting Provider: Corina Borrego MD on 07/28/2024 8:04 AM Procedure Note oCrina Borrego MD - 07/28/2024 PROCEDURE: XR CHEST 2VW, DATE/TIME OF EXAM: 07/27/2024 5:27 PM, LOCATION [facility] INDICATION: R11.2: Nausea and vomiting, unspecified vomiting type ADDITIONAL CLINICAL INFORMATION: Ordering Provider Reason For Exam: ETOH w/d Technologist Note: Additional: COMPARISON: None. FINDINGS/IMPRESSION: No focal consolidation, pneumothorax, or pleural effusion. The cardiomediastinal silhouette is normal. No displaced fracturesidentified. Report dictated by Keely Bennett Dr, MD (interventional radiology technologist). I, Corina Borrego MD have personally reviewed and interpreted this examination/study. > Interpreting Provider: Corina Borrego MD on 07/28/2024 8:04 AM Norman Plummer MD DIAGNOSTIC IMAGING O RDERABLES * TROPONIN-I HIGH SENSITIVE (07/27/2024 5:21 PM SOLE ASSESSOR) [facility] Troponin I High Sensitive 5 <=35 ng/L 07/27/2024 6:15 PM SOLE ASSESSOR [facility] Blood BLOOD SPECIMEN / Unknown Venipuncture / Unknown 07/27/2024 5:21 PM SOLE ASSESSOR 07/27/2024 5:40 PM SOLE ASSESSOR Norman Plummer MD LAB - CHEMISTRY DONTAE PRESCOTT Performing Organization Address City/[facility]/ZIP Co de Phone Number [address] [address], [facility] [phone] * PHOSPHORUS BLOOD (07/27/2024 5:21 PM SOLE ASSESSOR) [facility] Phosphorus 3.7 2.8 - 5.1 mg/dL 07/27/2024 6:10 PM SOLE ASSESSOR [facility] Blood BLOOD SPECIMEN / Unknown Venipuncture / Unknown 07/27/2024 5:21 PM SOLE ASSESSOR 07/27/2024 5:40 PM SOLE ASSESSOR Norman Plummer MD LAB - CHEMISTRY ORDEthel PRESCOTT [address] [address], [facility] [phone] * (ABNORMAL) ALCOHOL ETHYL BLOOD (07/27/2024 5:21 PM SOLE ASSESSOR) [facility] Ethanol (mg/dL) 73(H) <10 mg/dL 6:10 PM SOLE ASSESSOR [facility] Ethanol Calculated (g/dL) 0.073(H) <=0.010 g/dL 07/27/2024 6:10 PM SOLE ASSESSOR [facility] Blood BLOOD SPECIMEN / Unknown Venipuncture / Unknown 07/27/2024 5:21 PM SOLE ASSESSOR 07/27/2024 5:40 PM SOLE ASSESSOR Narrative [facility] - 07/27/2024 6:10 PM SOLE ASSESSOR Ethanol Interp <10: None Detected. Depression of [place]: >100 mg/dl Potentially Critical: >250 mg/dl Potentially [...] - CHEMISTRY DONTAE PRESCOTT Performing Organization Address City/[facility] Co de Phone Number [facility] [address] [place] [address], [facility] [phone] * EKG 12-LEAD (07/27/2024 5:10 PM SOLE ASSESSOR) Ventricular Rate 113 BPM [facility] Atrial Rate 113 BPM [facility] MUSE P-R Interval 160 ms [facility] MUSE QRS Duration ms 78 ms [facility] MUSE Q-T Interval ms 322 ms [facility] MUSE QTC Calculation (Bezet) 441 ms [facility] Calculated P [place] 30 degrees [facility] Calculated R [place] 12 degrees [facility] Calculated T [place] 14 degrees [facility] Interpretation EKG SINUS TACHYCARDIA OTHERWISE NORMAL ECG NO PREVIOUS ECGS AVAILABLE Confirmed by PHILIPP TEE MD ([id number]) on 07/29/2024 4:30:46 PM [facility] MUSE 07/27/2024 5:10 PM SOLE ASSESSOR 07/29/2024 4:30 PM SOLE ASSESSOR Norman Plummer MD ECG ORDERABLES Performing Organization Address City/[facility]/ZIP Co de Phone Number [facility] MUSE from Last 3 Months Advance Directives * Full Code (Latest Code Status on File) Date Activated Date Inactivated Comments 07/27/2024 9:19 PM 07/29/2024 12:50 PM Care Teams Channel Director Relationship Specialty Start Date End Date None, Physician PCP - General 07/27/24
--- OUTSIDE RECORDS SUMMARY | 2024-09-04 19:07 | XMS_ITS | CONTINUITY OF CARE DOCUMENT ---
Author Name lucila gaytan Address Unknown Organization [facility] Address [address] [place] [address] Phone [phone] Care Team Providers Care Upholstery Covers Inspector Name Role Phone Joan Sauceda MD Unavailable [phone] Kartik Mariee MD Unavailable Kartik Mariee MD [...] In-person encounter Office Visit Joan Sauceda MD [facility] Chest painDyspnea on exertion - In-person encounter Office Visit Bharathi Angel MD [facility] Pancreatitis;due to etohHyperlipidemia - In-person encounter Office Visit Bharathi Angel MD [facility] Family History of CVA or Stroke:ScreeningSinus tachycardiaSleep apneaDiabetes mellitusDiastolic dysfunction - In-person encounter Office Visit Bharathi Angel MD [place] [facility] fatty liverObesityScreeningPancreatitis;due to etohETOHBipolar disorderSinus tachycardiaHTN [...] angulo pulse rate 87 /min Maribeth Fletcher [facility] weight E&M 207 [lb_av] Maribeth Fletcher [facility] height E&M 71 [in_i] Maribeth Fletcher [facility] Body Mass Index (Ratio) 33.47 kg/m2 Shannan Angel MD respiratory rate E&M 18 /min [facility] blood pressure, resting Yes Tons hernandez Shafter blood pressure, diastolic 67 mm[Hg] To nsha Olea blood pressure, systolic 160 mm[Hg] Ton [facility] oxygen saturation, oximetry 98 % [facility] pulse rate 81 /min [facility] weight E&M 240 [lb_av] Tonsha Olea height [...] High 2 cholesterol, serum 170 mg/dL [employer] [phone]/05/2 7 folate, serum 10.7 NG/MLM [employer] 4.4 [...] Payer name Policy type / Coverage type [place] [employer] green party ID [facility] CHRONIC COMPLETE ASSURE (PPO C-SNP) Medicare [id number] HEALTHCARE AND FAMILY SERVICES Medicaid 1 [id number] ADVANCE DIRECTIVES Name Date DISCUSSED - NO DECISION MADE TREATMENT PLAN Date Name Performer [id number],S, Bryn Suarez i [id number],C, B P today: 136/82 P rior BP: 160/67 (06/20/2019) Labs Reviewed: C reat: 0.8 (12/05/2015) C hol: 170 (06/21/2019) HDL: 40 (06/21/2019) [facility] [id number],C,n ew onset and is not normal for him, will check echo and stress test [facility] [id number],C,e xertional, will check routine stress test [facility] Electrophysiology [facility] Electrophysiology: B P today: 136/82 P rior BP: 160/67 (06/20/2019) Labs Reviewed: C reat: 0.8 (12/05/2015) C hol: 170 (06/21/2019) HDL: 40 (06/21/2019) [facility] Electrophysiology:ne w onset and is not normal for him, will check echo and stress test [facility] Electrophysiology:ex ertional, will check routine stress test [facility] Cardiology:nml folat e n eg [...] EKG Bharathi Angel MD complete d SNOMED-CT: [id number] Current Medications Documented Bharathi Angel MD completed
--- OUTSIDE RECORDS SUMMARY | 2024-09-04 19:07 | XMS_ITS | Patient Health Summary ---
Author Organization [facility] Address [address] [place] [address] Care Team Providers Care Anesthetist Name Role Phone None, Physician Primary Care Provider Unavailabl e Note from [facility],non-owned Affiliates and Associated Physician Practices is amultiple site organization consisting of ambulatory clinics and hospital sitesin [place], [place], [place] and [place]. This disclosure is being madepursuant to the Care Everywhere program and may not contain all information available regarding this patient. Last updated 18.[facility] Allergies No known active allergies Medications * Be aware that medications may not be up to date on this document. Alwaysverify current medications with the patient. * omeprazole (PriLOSEC) 40 MG capsule Take 1 (one) capsule by mouth daily before breakfast Reasons: Gastroesophageal Reflux Disease * amitriptyline (Elavil) 100 MG tablet Take 2 (two) tablets by mouth at bedtime Reasons: Depressive Phase of Manic-Depression * metoprolol succinate XL 24hr (Toprol XL) 100 MG tablet Take 1 (one) tablet by mouth once daily * lithium CR (Eskalith CR) 450 MG tablet Take 1 (one) tablet by mouth every 12 hours Reasons: Manic-Depression * levothyroxine (Synthroid) 25 MCG tablet Take 1 (one) tablet by mouth daily before breakfast Reasons: Underactive Thyroid * vitamin D3 (Cholecalciferol) 25 MCG (1000 UNITS) tablet Take 2 (two) tablets by mouth once daily Reasons: Vitamin D Deficiency * rosuvastatin (Crestor) 20 MG tablet(Started 07/30/2024) Take 1 (one) tablet by mouth once daily for 30 days Ended Medications* thiamine (Vitamin B-1) 100 MG tablet(Started 07/31/2024) () Take 1 (one) tablet by mouth once daily for 14 days * folic acid (Folvite) 1 MG tablet(Started 07/31/2024)() Take 1 (one) tablet by mouth once daily for 14 days Active Problems Problem Noted Date Diagnosed Date [...] Comments Blood Pressure 143/86 07/29/2024 8:37 AM [facility] Pulse 76 07/29/2024 8:37 AM [facility] Temperature 36.2 C (97.2 F) 07/29/2024 8:37 AM [facility] Respiratory Rate 16 07/29/2024 8:37 AM [facility] Oxygen Saturation 96% 07/29/2024 8:37 AM [facility] Inhaled Oxygen Concentration - - Weight 89.2 kg (196 lb 11.2 oz) 07/27/2024 9:02 PM [facility] Height 177.8 cm (5' 10 ) 07/27/2024 9:02 PM [facility] Body Mass Index 28.22 07/27/2024 9:02 PM [facility] Procedures * CARDIAC EKG ORDER(Performed 07/30/2024) * GLUCOSE - POINT OF CARE(Performed 07/29/2024) * CBC W AUTO DIFFERENTIAL(Performed 07/29/2024) Performed for Alcohol withdrawal syndrome without complication (HCC) * COMPREHENSIVE METABOLIC PANEL(Performed 07/29/2024) Performed for Alcohol withdrawal syndrome without complication (HCC) * GLUCOSE - POINT OF CARE(Performed 07/29/2024) * GLUCOSE - POINT OF CARE(Performed 07/28/2024) * GLUCOSE - POINT OF CARE(Performed 07/28/2024) * GLUCOSE - POINT OF CARE(Performed 07/28/2024) * BASIC METABOLIC PANEL (CALCIUM TOTAL)(Performed 07/28/2024) Performed for Alcohol withdrawal syndrome without complication (HCC), Nausea and vomiting, unspecified vomiting type, Alcohol dependence with unspecified alcohol-induced disorder (HCC), Anxiety states * FOLATE(Performed 07/28/2024) Performed for Alcohol withdrawal syndrome without complication (HCC), Nausea and vomiting, unspecified vomiting type, Alcohol dependence with unspecified alcohol-induced disorder (HCC), Anxiety states * LIPASE BLOOD(Performed 07/28/2024) Performed for Alcohol withdrawal syndrome without complication (HCC), Nausea and vomiting, unspecified vomiting type, Alcohol dependence with unspecified alcohol-induced disorder (HCC), Anxiety states * HYDROXYBUTYRATE BETA(Performed 07/28/2024) Performed for Alcohol withdrawal syndrome without complication (HCC), Nausea and vomiting, unspecified vomiting type, Alcohol dependence with unspecified alcohol-induced disorder (HCC), Anxiety states * SALICYLATE LEVEL BLOOD(Performed 07/28/2024) Performed for Alcohol withdrawal syndrome without complication (HCC), Nausea and vomiting, unspecified vomiting type, Alcohol dependence with unspecified alcohol-induced disorder (HCC), Anxiety states * LITHIUM LEVEL(Performed 07/28/2024) Performed for Alcohol withdrawal syndrome without complication (HCC), Nausea and vomiting, unspecified vomiting type, Alcohol dependence with unspecified alcohol-induced disorder (HCC), Anxiety states * HEMOGLOBIN A1C(Performed 07/28/2024) Performed for Alcohol withdrawal syndrome without complication (HCC), Nausea and vomiting, unspecified vomiting type, Alcohol dependence with unspecified alcohol-induced disorder (HCC), Anxiety states * MAGNESIUM BLOOD(Performed 07/28/2024) Performed for Alcohol withdrawal syndrome without complication (HCC), Nausea and vomiting, unspecified vomiting type, Alcohol dependence with unspecified alcohol-induced disorder (HCC), Anxiety states * CBC W/O DIFFERENTIAL(Performed 07/28/2024) Performed for Alcohol withdrawal syndrome without complication (HCC), Nausea and vomiting, unspecified vomiting type, Alcohol dependence with unspecified alcohol-induced disorder (HCC), Anxiety states * LACTIC ACID BLOOD(Performed 07/28/2024) Performed for Alcohol withdrawal syndrome without complication (HCC), Nausea and vomiting, unspecified vomiting type, Alcohol dependence with unspecified alcohol-induced disorder (HCC), Anxiety states * VITAMIN D 25-HYDROXY(Performed 07/28/2024) Performed for Alcohol withdrawal syndrome without complication (HCC), Nausea and vomiting, unspecified vomiting type, Alcohol dependence with unspecified alcohol-induced disorder (HCC), Anxiety states * VITAMIN B12(Performed 07/28/2024) Performed for Alcohol withdrawal syndrome without complication (HCC), Nausea and vomiting, unspecified vomiting type, Alcohol dependence with unspecified alcohol-induced disorder (HCC), Anxiety states * TSH REFLEX FREE T4(Performed 07/28/2024) Performed for Alcohol withdrawal syndrome without complication (HCC), Nausea and vomiting, unspecified vomiting type, Alcohol dependence with unspecified alcohol-induced disorder (HCC), Anxiety states * GLUCOSE - POINT OF CARE(Performed 07/28/2024) * URINALYSIS REFLEX TO MICROSCOPIC NO CULTURE(Performed 07/28/2024) * GLUCOSE - POINT OF CARE(Performed 07/27/2024) * XR CHEST 2VW(Performed 07/27/2024) Performed for Nausea and vomiting, unspecified vomiting type * TROPONIN-I HIGH SENSITIVE(Performed 07/27/2024) * TSH REFLEX FREE T4(Performed 07/27/2024) * PHOSPHORUS BLOOD(Performed 07/27/2024) * LIPASE BLOOD(Performed 07/27/2024) * ALCOHOL ETHYL BLOOD(Performed 07/27/2024) * COMPREHENSIVE METABOLIC PANEL(Performed 07/27/2024) * CBC W AUTO DIFFERENTIAL(Performed 07/27/2024) * EKG 12-LEAD(Performed 07/27/2024) Performed for Nausea and vomiting, unspecified vomiting type Results * CARDIAC EKG ORDER (07/30/2024 1:08 PM [facility]) Narrative 07/30/2024 1:08 PM [facility] Ordered by an unspecified provider. Scanned Document CARDIAC SERVICES ORD ERABLES * (ABNORMAL) GLUCOSE - POINT OF CARE (07/29/2024 8:38 AM [facility]CH[employer]) Only the most recent of7 resultswithin the time period is included. Glucose WB/POC 137(H) 70 - 99 mg/dL 07/29/2024 8:43 AM [facility]CHANIC [facility] Specimen Type Cap Fingerstick 2024 8:43 AM [facility]CH[facility] Blood BLOOD SPECIMEN / Unknown 07/29/2024 8:38 AM [facility] 07/29/2024 8:43 AM [facility] Mani Beckham MD LAB - POINT OF CARE ORDERABLES [facility] [address] [place] [address], [facility] [phone] * (ABNORMAL) CBC W AUTO DIFFERENTIAL (07/29/2024 6:08 AM [facility]) Only the most recent of2 resultswithin the time period is included. WBC 2.1(L) 4.0 - 10.7 x10E9/L 07/29/2024 7:44 AM [facility] RBC Count 3.39(L) 4.30 - 5.80 x10E12/L 07/29/2024 7:44 AM [facility] Hemoglobin 10.8(L) 13.3 - 17.5 g/dL 07/29/2024 7:44 AM [facility] Hematocrit 31.3(L) 38.7 - 51.1 % 07/29/2024 7:44 AM [facility] MCV 92.3 80.0 - 98.0 fL 07/29/2024 7:44 AM [facility] MCH 31.9 26.7 - 33.6 pg 07/29/2024 7:44 AM [facility] MCHC 34.5 31.7 - 36.3 g/dL 07/29/2024 7:44 AM [facility] RDW-CV 13.2 11.3 - 14.8 % 07/29/2024 7:44 AM [facility] Platelet Count 83(L) 150 - 420 x10E9/L 07/29/2024 7:44 AM [facility] MPV 10.5 7.8 - 11.4 fL 07/29/2024 7:44 AM [facility] Neutrophil % 60.3 41.0 - 74.0 % 07/29/2024 7:44 AM [facility] Lymphocyte % 23.8 17.0 - 47.0 % 07/29/2024 7:44 AM [facility] Monocyte % 9.3 3.0 - 11.0 % 07/29/2024 7:44 AM [facility] Eosinophil % 5.6 0.0 - 7.0 % 07/29/2024 7:44 AM [facility] Basophil % 0.5 0.0 - 1.6 % 07/29/2024 7:44 AM [facility] Immature Granulocytes % 0.5 0.0 - 1.0 % 07/29/2024 7:44 AM [facility] Neutrophil Absolute 1.29(L) 1.60 - 7.50 x10E9/L 07/29/2024 7:44 AM [facility] Lymphocyte Absolute 0.51(L) 1.00 - 4.40 x10E9/L 07/29/2024 7:44 AM [facility] Monocyte Absolute 0.20 0.15 - 1.00 x10E9/L 07/29/2024 7:44 AM [facility] Eosinophil Absolute 0.12 0.00 - 0.60 x10E9/L 07/29/2024 7:44 AM [facility] Basophil Absolute 0.01 0.00 - 0.13 x10E9/L 07/29/2024 7:44 AM [facility] Blood BLOOD SPECIMEN / Unknown Lab Venipuncture / Unknown 07/29/2024 6:08 AM [facility] 07/29/2024 7:10 AM [facility] Joon Davis MD LAB - HEMATOLOGY O RDERABLES Performing Organization Address [facility]/State/[facility] Co de Phone Number [facility] [address] [place] [phone], [facility] [phone] * (ABNORMAL) COMPREHENSIVE METABOLIC PANEL (07/29/2024 6:08 AM [facility]) Only the most recent of2 resultswithin the time period is included. BUN 8 7 - 26 mg/dL 07/29/2024 8:07 AM [facility] Creatinine 0.66(L) 0.71 - 1.16 mg/dL 07/29/2024 8:07 AM [facility] Sodium 140 136 - 145 mmol/L 07/29/2024 8:07 AM [facility] Potassium 3.6 3.5 - 4.5 mmol/L 07/29/2024 8:07 AM [facility] Chloride 106 98 - 107 mmol/L 07/29/2024 8:07 AM [facility] CO2 26 22 - 29 mmol/L 07/29/2024 8:07 AM [facility] Glucose 147(H) 70 - 99 mg/dL 07/29/2024 8:07 AM [facility] Calcium 9.0 8.4 - 10.2 mg/dL 07/29/2024 8:07 AM [facility] Protein Total 5.8(L) 6.0 - 8.3 g/dL 07/29/2024 8:07 AM [facility] Albumin 3.3(L) 3.4 - 5.0 g/dL 07/29/2024 8:07 AM [facility] Bilirubin Total 0.6 0.2 - 1.2 mg/dL 07/29/2024 8:07 AM [facility] Alkaline Phosphatase 57 40 - 150 U/L 07/29/2024 8:07 AM [facility] ALT 21 5 - 55 U/L 07/29/2024 8:07 AM [facility] AST 27 5 - 34 U/L 07/29/2024 8:07 AM [facility] Anion Gap 8 6 - 16 07/29/2024 8:07 AM [facility] BUN/Creatinine Ratio 12 7 - 23 07/29/2024 8:07 AM [facility] Osmolality Calculated 291 275 - 295 mOsm/kg 07/29/2024 8:07 AM [facility] Albumin/Globulin Ratio 1.3 1.1 - 2.3 07/29/2024 8:07 AM [facility] eGFR by CKD-EPI >90 >=90 mL/min/1.7 3 m2 07/29/2024 8:07 AM [facility] Blood BLOOD SPECIMEN / Unknown Lab Venipuncture / Unknown 07/29/2024 6:08 AM [facility] 07/29/2024 7:08 AM [facility] Joon Davis MD LAB - CHEMISTRY OR DERABLES [facility] [address] [place] [address], [facility] [phone] * (ABNORMAL) HYDROXYBUTYRATE BETA (07/28/2024 8:04 AM [facility]) Beta-Hydroxybu tyrate 0.89(H) <0.50 mmol/L 07/28/2024 11:10 AM [facility] Blood BLOOD SPECIMEN / Unknown Lab Venipuncture / Unknown 07/28/2024 8:04 AM [facility] 07/28/2024 9:44 AM [facility]ha [facility]az[facility] LAB - CHEMISTRY ORDERABLES [facility] [address] [place] [address], [place] [phone] * HEMOGLOBIN A1C (07/28/2024 8:04 AM [facility]) Pathologist [facility] Hemoglobin A1c 5.6 <=5.6 % 07/28/2024 11:11 AM [facility] Estimated Average Glucose 114 mg/dL 07/28/2024 11:11 AM [facility] Comment: HbA1c Interpretation: Normal : < 5.7% Pre-diabetes: 5.7-6.4% Diabetes: Equal to or greater than 6.5% Test results diagnostic of diabetes should be repeated for confirmation. Treatment target values recommended by ADA and other clinical organizations should be used to evaluate metabolic control in patients. Reference: [place] [employer], Standards of Care in Diabetes -2020 In patients 70 years and older consider HbA1c target range of 7.0-7.5% (Reference: Jonah Cordon, et al. JAMDA. 2012) The Sebia assay for the measurement of HbA1c is a National Glycohemoglobin Standardization Program (NGSP) certified method. Blood BLOOD SPECIMEN / Unknown Lab Venipuncture / Unknown 07/28/2024 8:04 AM [facility] 07/28/2024 8:45 AM [facility] Radha Vazquez [facility] LAB - CHEMISTRY ORDERABLES [facility] [address] [place] [address], [place] [phone] * (ABNORMAL) CBC W/O DIFFERENTIAL (07/28/2024 8:04 AM [facility]) WBC 3.5(L) 4.0 - 10.7 x10E9/L 07/28/2024 8:59 AM [facility] RBC Count 3.50(L) 4.30 - 5.80 x10E12/L 07/28/2024 8:59 AM [facility] Hemoglobin 10.9(L) 13.3 - 17.5 g/dL 07/28/2024 8:59 AM [facility] Hematocrit 32.8(L) 38.7 - 51.1 % 07/28/2024 8:59 AM [facility] MCV 93.7 80.0 - 98.0 fL 07/28/2024 8:59 AM [facility] MCH 31.1 26.7 - 33.6 pg 07/28/2024 8:59 AM [facility] MCHC 33.2 31.7 - 36.3 g/dL 07/28/2024 8:59 AM [facility] RDW-CV 13.4 11.3 - 14.8 % 07/28/2024 8:59 AM [facility] Platelet Count 100(L) 150 - 420 x10E9/L 07/28/2024 8:59 AM [facility] MPV 10.6 7.8 - 11.4 fL 07/28/2024 8:59 AM [facility] Blood BLOOD SPECIMEN / Unknown Lab Venipuncture / Unknown 07/28/2024 8:04 AM [facility] 07/28/2024 8:44 AM [facility] Radha Vazquez APRN-ASSISTANT FACILITY MANAGER LAB - HEMATOLOGY ORDERABLES [address] [address], [facility] [phone] * (ABNORMAL) BASIC METABOLIC PANEL (CALCIUM TOTAL) (07/28/2024 8:04 AM [facility]) Pathologist [facility] BUN 9 7 - 26 mg/dL 07/28/2024 11:10 AM [facility] Creatinine 0.73 0.71 - 1.16 mg/dL 07/28/2024 11:10 AM [facility] Sodium 135(L) 136 - 145 mmol/L 07/28/2024 11:10 AM [facility] Potassium 3.6 3.5 - 4.5 mmol/L 07/28/2024 11:10 AM [facility] Chloride 103 98 - 107 mmol/L 07/28/2024 11:10 AM [facility] CO2 20(L) 22 - 29 mmol/L 07/28/2024 11:10 AM [facility] Glucose 239(H) 70 - 99 mg/dL 07/28/2024 11:10 AM [facility] Calcium 8.6 8.4 - 10.2 mg/dL 07/28/2024 11:10 AM [facility] Anion Gap 12 6 - 16 07/28/2024 11:10 AM [facility] BUN/Creatinine Ratio 12 7 - 23 07/28/2024 11:10 AM [facility] Osmolality Calculated 286 275 - 295 mOsm/kg 07/28/2024 11:10 AM [facility] eGFR by CKD-EPI >90 >=90 mL/min/1.7 3 m2 07/28/2024 11:10 AM [facility] Blood BLOOD SPECIMEN / Unknown Lab Venipuncture / Unknown 07/28/2024 8:04 AM [facility] 07/28/2024 9:44 AM [facility] Narrative Authorizing Provider Result Miah BUSTOS LAB - CHEMISTRY ORDERABLES Performing Organization Address City/State/[facility] Co de Phone Number [address] [address], [facility] [phone] * MAGNESIUM BLOOD (07/28/2024 8:04 AM [facility]) Magnesium 1.6 1.6 - 2.6 mg/dL 07/28/2024 11:10 AM [facility] Blood BLOOD SPECIMEN / Unknown Lab Venipuncture / Unknown 07/28/2024 8:04 AM [facility] 07/28/2024 9:44 AM [facility] Narrative Authorizing Provider Result Miah BUSTOS LAB - CHEMISTRY ORDERABLES Performing Organization Address City/[facility]/ZIP Co de Phone Number [address] [address], [facility] [phone] * (ABNORMAL) LITHIUM LEVEL (07/28/2024 8:04 AM [facility]) Pathologist [facility] [place], trough <0.20(L) 0.50 - 1.20 mmol/L 07/28/2024 9:52 AM [facility] Blood BLOOD SPECIMEN / Unknown Lab Venipuncture / Unknown 07/28/2024 8:04 AM [employer] 07/28/2024 8:42 AM [employer]CH[facility]IC Narrative [facility] - 07/28/2024 9:52 AM [facility] There is no relationship between peak concentration and degree of intoxication. Response and side effects are individual. Radha Vazquez [facility] LAB - CHEMISTRY ORDERABLES Performing Organization Address [facility] Co de Phone Number [address] [address], [facility] [phone] * LIPASE BLOOD (07/28/2024 8:04 AM [employer]CH[employer]) Only the most recent of2 resultswithin the time period is included. [facility] Lipase 19 8 - 78 U/L 07/28/2024 11:10 AM [facility] Blood BLOOD SPECIMEN / Unknown Lab Venipuncture / Unknown 07/28/2024 8:04 AM [employer]CH[employer]IC 07/28/2024 9:44 AM [employer]ER MECHANIC Narrative [facility] - 07/28/2024 11:10 AM [facility]CH[facility]IC Lipase results from the [employer] Alinity analyzer may not be comparable with other methodologies. Radha Vazquez [facility] LAB - CHEMISTRY ORDERABLES Performing Organization Address [facility]/ZIP Co de Phone Number [address] [address], [facility] [phone] * LACTIC ACID BLOOD (07/28/2024 8:04 AM [facility]ER MECHANIC) [facility] Lactic Acid-Stat 0.9 <=2.0 mmol/L 07/28/2024 10:43 AM [facility]ER [facility]CHANIC [facility] Blood BLOOD SPECIMEN / Unknown Lab Venipuncture / Unknown 07/28/2024 8:04 AM [employer] 07/28/2024 9:46 AM [employer] Radha [facility] LAB - CHEMISTRY ORDERABLES [address] [address], [facility] [phone] * FOLATE (07/28/2024 8:04 AM [facility]) Folate 14.5 7.0 - 31.4 ng/mL 07/28/2024 10:50 AM [facility] Blood BLOOD SPECIMEN / Unknown Lab Venipuncture / Unknown 07/28/2024 8:04 AM [employer] 07/28/2024 9:44 AM [facility] Radha Vazquez [facility] LAB - CHEMISTRY ORDERABLES Performing Organization Address City/[facility]/ZIP Co de Phone Number [address] [address], [facility] [phone] * (ABNORMAL) SALICYLATE LEVEL BLOOD (07/28/2024 8:04 AM [facility]) Salicylate <5(L) 15 - 30 mg/dL 07/28/2024 11:10 AM [facility] Blood BLOOD SPECIMEN / Unknown Lab Venipuncture / Unknown 07/28/2024 8:04 AM [facility] 07/28/2024 9:44 AM [employer]ER MECHANIC Narrative [facility] - 07/28/2024 11:10 AM [facility] This test is not intended for use with low-dose aspirin therapy. Most patients on low-dose aspirin for cardiovascular prophylaxis will have serum concentrations near or below the lower limit of the analytical range. Radha Vazquez [facility] LAB - CHEMISTRY ORDERABLES Performing Organization Address City/[facility]/ZIP Co de Phone Number [address] [address], [facility] [phone] * TSH REFLEX FREE T4 (07/28/2024 8:03 AM [facility]) Only the most recent of2 resultswithin the time period is included. TSH 1.842 0.350 - 4.940 uIU/mL 07/28/2024 10:41 AM [facility] Blood BLOOD SPECIMEN / Unknown Lab Venipuncture / Unknown 07/28/2024 8:03 AM [facility]CH[facility] 07/28/2024 9:44 AM [facility]CH[facility] Radha Allen George [facility] LAB - CHEMISTRY ORDERABLES Performing Organization Address City/[facility]/ZIP Co de Phone Number [address] [address], [facility] [phone] * (ABNORMAL) VITAMIN D 25-HYDROXY (07/28/2024 8:03 AM [facility]CH[facility]) Vitamin D, 25 Hydroxy 14.5(L) 30.0 - 80.0 ng/mL 07/28/2024 10:41 AM [facility] Comment: The recommendations for 25-Hydroxy Vitamin [...] Lab Venipuncture / Unknown 07/28/2024 8:03 AM [facility]CH[facility] 07/28/2024 9:44 AM [employer]OPELLER MECHANIC Radha Vazquez [facility] LAB - CHEMISTRY ORDERABLES Performing Organization Address City/[facility]/ZIP Co de Phone Number [address] [address], [facility] [phone] * VITAMIN B12 (07/28/2024 8:03 AM [facility]) Vitamin B12 331 213 - 816 pg/mL 07/28/2024 10:41 AM [facility] Blood BLOOD SPECIMEN / Unknown Lab Venipuncture / Unknown 07/28/2024 8:03 AM [facility] 07/28/2024 9:44 AM [facility] Radha Vazquez RIVET BUCKER-ASSISTANT FACILITY MANAGER LAB - CHEMISTRY ORDERABLES Performing Organization Address [facility]/ZIP Co de Phone Number [facility] [address] [place] [id number] [phone] * (ABNORMAL) URINALYSIS REFLEX TO MICROSCOPIC NO CULTURE (07/28/2024 1:00 AM [facility]) Color UA Yellow Straw, Yellow 07/28/2024 1:28 AM [facility] Clarity UA Clear Clear 07/28/2024 1:28 AM [facility] Specific [place] UA 1.018 1.005 - 1.030 07/28/2024 1:28 AM [facility] pH UA 5.0 5.0 - 8.0 pH 07/28/2024 1:28 AM [facility] Protein UA 1+(A) Negative 07/28/2024 1:28 AM [facility] Glucose UA Negative Negative 07/28/2024 1:28 AM [facility] Ketone UA 2+(A) Negative 07/28/2024 1:28 AM [facility] Bilirubin UA Negative Negative 07/28/2024 1:28 AM [facility] Blood UA Negative Negative 07/28/2024 1:28 AM [facility] Nitrite UA Negative Negative 07/28/2024 1:28 AM [facility] Leukocyte Esterase Negative Negative 07/28/2024 1:28 AM [facility] Urobilinogen UA Negative Negative mg/dL 07/28/2024 1:28 AM [facility] RBC UA 0-2 None Seen, 0-2, 3-5 /HPF 07/28/2024 1:28 AM [facility] WBC UA 0-5 None Seen, 0-5 /HPF 07/28/2024 1:28 AM [facility] Squamous Epithelial Cells UA 0-2 None Seen, 0-2, 3-5 /HPF 07/28/2024 1:28 AM [facility] Mucus UA 1+ /LPF 07/28/2024 1:28 AM [employer] Urine URINE SPECIMEN OBTAINED BY CLEAN CATCH PROCEDURE / Unknown Collection / Unknown 07/28/2024 1:00 AM [facility] 07/28/2024 1:22 AM [facility] Narrative [facility] - 07/28/2024 1:28 AM [employer] Norman Plummer MD LAB - URINALYSIS ORD ERABLES [facility] [address] [place] [address], [facility] [phone] * XR Chest 2Vw (07/27/2024 5:27 PM [employer]) Anatomical Region Laterality Modality Chest Digital Radiogra phy 07/27/2024 5:52 PM [employer] Narrative 07/28/2024 8:04 AM [employer] PROCEDURE: XR CHEST 2VW, DATE/TIME OF EXAM: 07/27/2024 5:27 PM, LOCATION [facility] INDICATION: R11.2: Nausea and vomiting, unspecified vomiting type ADDITIONAL CLINICAL INFORMATION: Ordering Provider Reason For Exam: ETOH w/d Technologist Note: Additional: COMPARISON: None. FINDINGS/IMPRESSION: No focal consolidation, pneumothorax, or pleural effusion. The cardiomediastinal silhouette is normal. No displaced fractures identified. Report dictated by Keely Bennett Dr, MD (residential sales rep). I, Corina Borrego MD have personally reviewed and interpreted this examination/study. > Interpreting Provider: Corina Borrego MD on 07/28/2024 8:04 AM Procedure Note Corina Borrego MD - 07/28/2024 PROCEDURE: XR CHEST 2VW, DATE/TIME OF EXAM: 07/27/2024 5:27 PM, LOCATION [facility] INDICATION: R11.2: Nausea and vomiting, unspecified vomiting type ADDITIONAL CLINICAL INFORMATION: Ordering Provider Reason For Exam: ETOH w/d Technologist Note: Additional: COMPARISON: None. FINDINGS/IMPRESSION: No focal consolidation, pneumothorax, or pleural effusion. The cardiomediastinal silhouette is normal. No displaced fracturesidentified. Report dictated by Keely Bennett Dr, MD (residential sales rep). I, Corina Borrego MD have personally reviewed and interpreted this examination/study. > Interpreting Provider: Corina Borrego MD on 07/28/2024 8:04 AM Norman Plummer MD DIAGNOSTIC IMAGING O RDERABLES * TROPONIN-I HIGH SENSITIVE (07/27/2024 5:21 PM PROPELLER MECHANIC) [facility] Troponin I High Sensitive 5 <=35 ng/L 07/27/2024 6:15 PM PROPELLER MECHANIC [facility] Blood BLOOD SPECIMEN / Unknown Venipuncture / Unknown 07/27/2024 5:21 PM PROPELLER MECHANIC 07/27/2024 5:40 PM PROPELLER MECHANIC Norman Plummer MD LAB - CHEMISTRY [facility]TAE [facility] Performing Organization Address City/[facility]/ZIP Co de Phone Number [address] [address], [facility] [phone] * PHOSPHORUS BLOOD (07/27/2024 5:21 PM PROPELLER MECHANIC) [facility] Phosphorus 3.7 2.8 - 5.1 mg/dL 07/27/2024 6:10 PM PROPELLER MECHANIC [facility] Blood BLOOD SPECIMEN / Unknown Venipuncture / Unknown 07/27/2024 5:21 PM PROPELLER MECHANIC 07/27/2024 5:40 PM PROPELLER MECHANIC Norman Pulmmer MD LAB - CHEMISTRY [facility]TAE [facility] [address] [address], [facility] [phone] * (ABNORMAL) ALCOHOL ETHYL BLOOD (07/27/2024 5:21 PM PROPELLER MECHANIC) [facility] Ethanol (mg/dL) 73(H) <10 mg/dL 6:10 PM PROPELLER MECHANIC [facility] Ethanol Calculated (g/dL) 0.073(H) <=0.010 g/dL 07/27/2024 6:10 PM PROPELLER MECHANIC [facility] Blood BLOOD SPECIMEN / Unknown Venipuncture / Unknown 07/27/2024 5:21 PM PROPELLER MECHANIC 07/27/2024 5:40 PM PROPELLER MECHANIC Narrative [facility] - 07/27/2024 6:10 PM PROPELLER MECHANIC Ethanol Interp <10: None Detected. Depression of ACOUSTIC ENGINEER: >100 mg/dl Potentially Critical: >250 mg/dl Potentially Fatal >400 mg/dl Ethanol in the patient's blood will contribute to the osmolar gap. Ethanol's contribution to the osmolar gap can be estimated by dividing the concentration of ethanol in mg/dL by 4.6. This test is for clinical use only and does not equal a YUMIKO for legal purposes. 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) Ventricular Rate 113 BPM SL MUSE Atrial Rate 113 BPM [facility] MUSE P-R Interval 160 ms [facility] MUSE QRS Duration ms 78 ms [facility] MUSE Q-T Interval ms 322 ms [facility] MUSE QTC Calculation (Bezet) 441 ms [facility] MUSE Calculated P [place] 30 degrees [facility] MUSE Calculated R [place] 12 degrees [facility] MUSE Calculated T [place] 14 degrees [facility] MUSE Interpretation EKG SINUS TACHYCARDIA OTHERWISE NORMAL ECG NO PREVIOUS ECGS AVAILABLE Confirmed by PHILIPP TEE MD ([id number]) on 07/29/2024 4:30:46 PM [facility] MUSE 07/27/2024 5:10 PM PROPELLER MECHANIC 07/29/2024 4:30 PM PROPELLER MECHANIC Norman Plummer MD ECG ORDERABLES Performing Organization Address City/[facility]/ZIP Co de Phone Number [facility] MUSE Care Teams Anesthetist Relationship Specialty Start Date End Date None, Physician PCP - General 07/27/24
--- OUTSIDE RECORDS SUMMARY | 2024-09-04 19:07 | XMS_ITS ---
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 Medications Medication SIG (Take, Route, Frequency, Duration) Notes Start Date End Date Status Vitamin D2 50 MCG (1999) 1 tablet Orally Once a day Not-Taking Collyer Carbonate ER 450 MG 1 tablet Orally Twice a day On [facility] Active Amitriptyline HCl 100 MG 2 tablets at bedtime Orally Once a day On [facility] Active Icosapent Ethyl 1 GM 2 capsules with meals Orally Twice a day Not-Taking diazePAM 2 MG 2 tablet as needed Orally twice a day for 30 days As needed Increased dose 07/17/2024 Active Vitamin B-12 1000 MCG 1 tablet Orally Once a day Not-Taking Vivitrol 380 MG as directed Intramuscular every 28 days 10/06/2023 Not-Taking Vitamin D3 50 MCG (1999) 1 capsule Orally Once a day Not-Taking Levothyroxine Sodium 75 MCG 1 tablet in the morning on an empty stomach Orally Once a day Active Aspirin 81 81 MG 1 tablet Orally Once a day Active Metoprolol Succinate ER 100 MG 1 tablet Orally Once a day Active Rosuvastatin Calcium 20 MG 1 tablet Orally Once a day Active Farxiga 5 MG 1 tablet Orally Once a day Active Omeprazole 40 MG 1 capsule 30 minutes before morning meal Orally Once a day Active Glimepiride 4 MG 1 tablet with breakfast or the first main meal of the day Orally Once a day Active Melatonin 5 MG 1-2 tablet in the evening Orally Once a day for 30 days As needed for insomnia On [facility] unit 10/10/2023 Active metFORMIN HCl ER 500 MG 1 tablet with evening meal Orally Once a day Active diazePAM 2 MG 1 tablet as needed Orally twice a day for 30 days 07/02/2024 Active Social History Sex Assigned At : Social History Observation Description Sex Assigned At Male Encounters En[facility] [address] [place] [address] 08/02/2024 Aspen Ascencio Plan Of Treatment No Information Progress Notes * Russell OBRIENDOB:[birth year] (58 yo M)Acc No.[id number]:08/02/2024 UNLOCKED PROGRESS NOTE Patient: Russell SOMMER Provider: Herminia Ascencio, OPHELIA, FOREST EXAMINER, ELECTRIC METER REPAIRER HELPER-C :1965 A ge:58 Y S ex:Male Date:08/02/2024 [id number] Check In:02:47 PM MANAGEMENT SCIENTIST Subjective: * Chief Complaints: * 1 . 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 * Medical History: * Medications: T aking diazePAM 2 MG Tablet 1 tablet as needed Orally twice a day , Taking Melatonin 5 MG Tablet 1-2 tablet in the evening Orally Once a day As needed for insomnia, Notes to Pharmacist: On MRU unit, Taking metFORMIN HCl ER 500 MG Tablet Extended Release 24 Hour 1 tablet with evening meal Orally Once a day , Taking Omeprazole 40 MG Capsule Delayed Release 1 capsule 30 minutes before morning meal Orally Once a day , Taking Glimepiride 4 MG Tablet 1 tablet with breakfast or the first main meal of the day Orally Once a day , Taking Rosuvastatin Calcium 20 MG Tablet 1 tablet Orally Once a day , Taking Farxiga 5 MG Tablet 1 tablet Orally Once a day , Taking Metoprolol Succinate ER 100 MG Tablet Extended Release 24 Hour 1 tablet Orally Once a day , Taking Aspirin 81 81 MG Tablet Delayed Release 1 tablet Orally Once a day , Taking Levothyroxine Sodium 75 MCG Tablet 1 tablet in the morning on an empty stomach Orally Once a day , Taking diazePAM 2 MG Tablet 2 tablet as needed Orally twice a day As needed, Notes to Pharmacist: Increased dose, Taking Collyer Carbonate ER 450 MG Tablet Extended Release 1 tablet Orally Twice a day , Notes to Pharmacist: On MRU, Taking Amitriptyline HCl 100 MG Tablet 2 tablets at bedtime Orally Once a day , Notes to Pharmacist: On MRU, Not-Taking Vivitrol 380 MG Suspension Reconstituted as directed Intramuscular every 28 days , Not-Taking Vitamin D3 50 MCG (2000 UT) Capsule 1 capsule Orally Once a day , Not-Taking Vitamin B-12 1000 MCG Tablet 1 tablet Orally Once a day , Not-Taking Vitamin D2 50 MCG (2000 UT) Tablet 1 tablet Orally Once a day , Not-Taking Icosapent Ethyl 1 GM Capsule 2 capsules with meals Orally Twice a day Objective: * Vitals: Assessment: Plan: * Treatment: * * Electronic signature of Yuriy Ascencio , [id number] on 09/04/2024 at 07:06 PM MANAGEMENT SCIENTIST Sign off status: Pending * Provider: Herminia Ascencio, DNP, FOREST EXAMINER, ELECTRIC METER REPAIRER HELPER-C Date: 0 08/02/2024 Generated for Printing/Faxing/eTransmitting on: 0 09/04/2024 07:06 PM MANAGEMENT SCIENTIST
--- OUTSIDE RECORDS SUMMARY | 2024-09-04 19:07 | XMS_ITS | Patient Health Record ---
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 [employer] Name Role Phone Sparr, Aspen Primary Care Provider [phone] Renetta Burgos Unavailable [phone] Jignesh Cisneros Unavailable [phone] Seth Nazario Unavailable [phone] Adriane Garcia Unavailable [phone] Christine Ordoñez Unavailable [phone] Thu Vazquez Unavailable [phone] Allergies No Known Allergies Results Component Value Reference Range Notes Vitamin B12 and Folate Reviewed date:08/06/2024 04:09:08 PM Interpretation: Performing Lab:[facility], [address] [facility], [place], Phone - [phone], Director - Sofiya Notes/Report: Vitamin B12 557 481-1736 pg/mL Folate (Folic Acid), Serum 12.0 >3.0 ng/mL A serum folate concentration of less than 3.1 ng/mL is considered to represent clinical deficiency. CBC With Differential/Platel et* Reviewed date:08/06/2024 04:09:08 PM Interpretation: Performing Lab:[facility], [address] [facility], [place], Phone - [phone], Director - Sofiya Notes/Report: WBC 6.5 3.4-10.8 x10E3/uL RBC 3.65 4.14-5.80 x10E6/uL Hemoglobin 11.8 13.0-17.7 g/dL Hematocrit 35.8 37.5-51.0 % MCV 98 79-97 fL MCH 32.3 26.6-33.0 pg MCHC 33.0 31.5-35.7 g/dL RDW 13.1 11.6-15.4 % Platelets 119 150-450 x10E3/uL Neutrophils 76 Not Estab. % Lymphs 10 Not Estab. % Monocytes 9 Not Estab. % Eos 3 Not Estab. % Basos 1 Not Estab. % Neutrophils (Absolute) 5.1 1.4-7.0 x10E3/uL Lymphs (Absolute) 0.6 0.7-3.1 x10E3/uL Monocytes(Absolute) 0.6 0.1-0.9 x10E3/uL Eos (Absolute) 0.2 0.0-0.4 x10E3/uL Baso (Absolute) 0.0 0.0-0.2 x10E3/uL Immature Granulocytes 1 Not Estab. % Immature Grans (Abs) 0.0 0.0-0.1 x10E3/uL Skedee (Eskalith(R)), Serum Reviewed date:08/06/2024 04:09:08 PM Interpretation: Performing Lab:[facility] [address] [facility], Phone - [phone], Director - [facility] Notes/Report: Skedee (Eskalith(R)), Serum 0.7 0.5-1.2 mmol/L A concentration of 0.5-0.8 mmol/L is advised for long-term use; concentrations of up to 1.2 mmol/L may be necessary during acute treatment. Detection Limit = 0.1 <0.1 indicates None Detected Please note The date and/or time of collection was not indicated on the requisition as required by state and federal law. The date of receipt of the specimen was used as the collection date if not supplied. Vitamin D, 25-Hydroxy* Reviewed date:08/06/2024 04:09:08 PM Interpretation: Performing Lab:[facility] [place], [address] [facility], [place], Phone - [phone], [facility] Notes/Report: Vitamin D, 25-Hydroxy 23.0 30.0-100.0 ng/mL Vitamin D deficiency has been defined by the [place] of [employer] and an Endocrine Society practice guideline as a level of serum 25-OH vitamin D less than 20 ng/mL (1,2). The Endocrine Society went on to further define vitamin D insufficiency as a level between 21 and 29 ng/mL (2). 1. IOM ([place] of [employer]). 2010. Dietary reference intakes for calcium and D. [place]: The National Academies Press. 2. Lefty MF, Malka KAM, [place] , et al. Evaluation, treatment, and prevention of vitamin D deficiency: an Endocrine Society clinical practice guideline. JCEM. 2010; 96(7):1911-30. Lipid Panel* Reviewed date:08/06/2024 04:09:08 PM Interpretation: Performing Lab:[facility] [place], [address] [place] [address], Phone - [phone], Director - [facility] Notes/Report: Cholesterol, Total 153 100-199 mg/dL Triglycerides 69 0-149 mg/dL HDL Cholesterol 80 >39 mg/dL VLDL Cholesterol Samuel 14 5-40 mg/dL LDL Chol Calc ([facility]) 59 0-99 mg/dL TSH reflex to T4F Reviewed date:08/06/2024 04:09:08 PM Interpretation: Performing Lab:[facility] [place], [address] [place] [address], Phone - [phone], Director - [facility] Notes/Report: TSH 3.690 0.450-4.500 uIU/mL CMP 14 Comprehensive Metabol ic Panel* Reviewed date:08/06/2024 04:09:08 PM Interpretation: Performing Lab:[facility] [place], [address] [place] [address], Phone - [phone], Director - [facility] Notes/Report: Glucose 136 70-99 mg/dL BUN 9 6-24 mg/dL Creatinine 0.64 0.76-1.27 mg/dL eGFR 111 >59 mL/min/1.73 BUN/Creatinine Ratio 14 9-20 Sodium 138 134-144 mmol/L Potassium 4.5 3.5-5.2 mmol/L Chloride 98 96-106 mmol/L Carbon Dioxide, Total 27 20-29 mmol/L Calcium 10.1 8.7-10.2 mg/dL Protein, Total 6.9 6.0-8.5 g/dL Albumin 4.7 3.8-4.9 g/dL Globulin, Total 2.2 1.5-4.5 g/dL Bilirubin, Total 0.3 0.0-1.2 mg/dL Alkaline Phosphatase 72 44-121 IU/L AST (SGOT) 40 0-40 IU/L ALT (SGPT) 45 0-44 IU/L HIV Screen *HIV 1, 2 Ab, p24 Ag ([id number]) Reviewed date:11/09/2023 12:21:38 PM Interpretation: Performing Lab:[facility] [place], [address] [place] [address], Phone - [phone], Director - [facility] Notes/Report: HIV Ab/p24 Ag Screen Non Reactive Non Reactive HIV Negative HIV-1/HIV-2 antibodies and HIV-1 p24 antigen were NOT detected. There is no laboratory evidence of HIV infection. CBC With Differential/Platel et* Reviewed date:11/09/2023 12:20:28 PM Interpretation: Performing Lab:[facility] [place], [address] [place] [address], Phone - [phone], Director - [facility] Notes/Report: WBC 7.2 3.4-10.8 x10E3/uL RBC 3.73 4.14-5.80 x10E6/uL Hemoglobin 11.8 13.0-17.7 g/dL Hematocrit 35.5 37.5-51.0 % MCV 95 79-97 fL MCH 31.6 26.6-33.0 pg MCHC 33.2 31.5-35.7 g/dL RDW 12.9 11.6-15.4 % Platelets 180 150-450 x10E3/uL Neutrophils 79 Not Estab. % Lymphs 11 Not Estab. % Monocytes 5 Not Estab. % Eos 4 Not Estab. % Basos 1 Not Estab. % Neutrophils (Absolute) 5.7 1.4-7.0 x10E3/uL Lymphs (Absolute) 0.8 0.7-3.1 x10E3/uL Monocytes(Absolute) 0.4 0.1-0.9 x10E3/uL Eos (Absolute) 0.3 0.0-0.4 x10E3/uL Baso (Absolute) 0.1 0.0-0.2 x10E3/uL Immature Granulocytes 0 Not Estab. % Immature Grans (Abs) 0.0 0.0-0.1 x10E3/uL Skedee (Eskalith(R)), Serum Reviewed date:11/08/2023 04:38:14 PM Interpretation: Performing Lab:[facility] [place], [address] [facility], Phone - [phone], Director - [facility] Notes/Report: Skedee (Eskalith(R)), Serum 0.8 0.5-1.2 mmol/L A concentration of 0.5-0.8 mmol/L is advised for long-term use; concentrations of up to 1.2 mmol/L may be necessary during acute treatment. Detection Limit = 0.1 <0.1 indicates None Detected TSH+Free T4* Reviewed date:11/08/2023 04:43:08 PM Interpretation: Performing Lab:[facility] [place], [address] [facility], Phone - [phone], Director - [facility] Notes/Report: TSH 2.130 0.450-4.500 uIU/mL T4,Free(Direct) 1.20 0.82-1.77 ng/dL CMP 14 Comprehensive Metabol ic Panel* Reviewed date:11/09/2023 12:21:02 PM Interpretation: Performing Lab:[facility] [place], [address] [facility], Phone - [phone], Director - [facility] Notes/Report: Glucose 231 70-99 mg/dL BUN 14 6-24 mg/dL Creatinine 0.84 0.76-1.27 mg/dL eGFR 103 >59 mL/min/1.73 BUN/Creatinine Ratio 17 9-20 Sodium 141 134-144 mmol/L Potassium 4.5 3.5-5.2 mmol/L Chloride 102 96-106 mmol/L Carbon Dioxide, Total 23 20-29 mmol/L Calcium 9.6 8.7-10.2 mg/dL Protein, Total 6.8 6.0-8.5 g/dL Albumin 4.3 3.8-4.9 g/dL Globulin, Total 2.5 1.5-4.5 g/dL A/G Ratio 1.7 1.2-2.2 Bilirubin, Total 0.3 0.0-1.2 mg/dL Alkaline Phosphatase 65 44-121 IU/L AST (SGOT) 22 0-40 IU/L ALT (SGPT) 22 0-44 IU/L Reason For Referral Reason Encounter for Screen ing Colonoscopy Diagnosis 1 Encounter for screen ing for malignant neoplasm of colon (Z12.11) Diagnosis 2 Contact with and (huang spected) exposure to other communicable diseases (Z20.89) Referral Organization [facility] Referring Provider First Name Jignesh Referring Provider Last Name Blayne Referring Provider Speciality Internal M edicine Referred Provider Specialty Gastroentero logy General Notes MICHAELA Nieto, Vaishnavi Cordon 10/17/2023 08:36:19 AM >Referral to Dr. Montaño. letter to pt. Clinical Notes Dr. Montaño, [address] [facility] [address], [address] [address], , Fax#[phone] Referral Priority Routine Referral Appointment Date 10/05/2023 Medications Medication SIG (Take, Route, Frequency, Duration) Notes Start Date End Date Status metFORMIN HCl ER 500 MG 1 tablet with evening meal Orally Once a day Active Vivitrol 380 MG as directed Intramuscular every 28 days 10/06/2023 Not-Taking Omeprazole 40 MG 1 capsule 30 minutes before morning meal Orally Once a day Active Vitamin D3 50 MCG (2000 UT) 1 capsule Orally Once a day Not-Taking diazePAM 2 MG 1 tablet as needed Orally twice a day for 30 days 07/02/2024 Active Melatonin 5 MG 1-2 tablet in the evening Orally Once a day for 30 days As needed for insomnia On U unit 10/10/2023 Active Levothyroxine Sodium 75 MCG 1 tablet in the morning on an empty stomach Orally Once a day Active Metoprolol Succinate ER 100 MG 1 tablet Orally Once a day Active Aspirin 81 81 MG 1 tablet Orally Once a day Active Vitamin D2 50 MCG (2000 UT) 1 tablet Orally Once a day Not-Taking Farxiga 5 MG 1 tablet Orally Once a day Active Icosapent Ethyl 1 GM 2 capsules with meals Orally Twice a day Not-Taking Skedee Carbonate ER 450 MG 1 tablet Orally Twice a day for 30 days On [facility] Active Amitriptyline HCl 100 MG 2 tablets at bedtime Orally Once a day for 30 days On [facility] Active Glimepiride 4 MG 1 tablet with breakfast or the first main meal of the day Orally Once a day Active Vitamin B-12 1000 MCG 1 tablet Orally Once a day Not-Taking diazePAM 2 MG 2 tablet as needed Orally twice a day for 30 days As needed Increased dose 08/14/2024 Active Rosuvastatin Calcium 20 MG 1 tablet Orally Once a day Active Social History Tobacco Use: Social History Observation Description Date Details (start date - stop date) Never Smoker NA - NA Sex Assigned At : Social History Observation Description Sex Assigned At Male PRAPARE Question Answer Notes Date Completed/Updated: 06/12/2024 What is your current housing situation? I have h ousing Are you worried about losing your housing? Yes What is the highest level of school that you have finished? More than high school What is your current work situation? Oth erwise unemployed but not seeking work (ex. 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 Check all that apply I do not have problems meeting my needs Has lack of transportation k ept you from medical appointments, meetings, work or from getting things needed for daily living? No How often do you see or talk to people that you care about and feel close to? (For example: talking to friends on the phone, visiting friends or family, going to [employer] or club meetings) More than 5 times a week How stressed are you? Stress is when someone feels tense, nervous, anxious, or can\t sleep at night because their mind is troubled A little bit In the past year have you sp ent more than 2 nights in a row in a alf, senior care, fci center, or juvenile correctional facility? No Are you a refugee? No What country are you from? [place] Do you feel physically and e motionally safe where you currently live? Yes In the past year, have you b een afraid of your partner or ex-partner? No PRAPARE Score: 4 Tobacco Control (Standard) Question Answer Notes Tobacco use: Nonsmoker Problems Problem Type SNOMED Code ICD Code Onset Dates Problem Status W/U Status Risk Notes Problem Depression (965077318) Depression (F32.9) 4 Active confirmed Problem Alcohol abuse (68486524) Alcohol abuse (F10.10) Active confirmed Problem Bipolar affective disorder (98848345) Bipolar affective disorder (F31.9) Active confirmed Problem Generalized anxiety disorder (65385135) SAMIR (generalized anxiety disorder) (F41.1) Active confirmed Problem Disorder caused by alcohol (disorder) (530835124) Alcohol use disorder (F10.99) Active confirmed Problem Obesity (405370377) Obesity (BMI 30-39.9) (E66.9) Active confirmed Vital Signs Heart Rate 54 /min 07/02/2024 Temperature 97.4 degrees Fahrenheit 07/02/2024 Respiratory Rate 16 /min 07/02/2024 Blood pressure diastolic 70 mm Hg 07/02/2024 Oximetry 98 % 07/02/2024 Height 68.5 in 07/02/2024 Blood pressure systolic 128 mm Hg 07/02/2024 Weight 200.6 lbs 07/02/2024 BMI 30.05 kg/m2 07/02/2024 Procedures Procedure Date Ordered Date Performed Result Body Sit e EAR IRRIGATION 10/05/2023 10/06/2023 N/A Encounters Encounter Location Date Provider Diagnosis [facility] [address] [place] [address] 10/24/2023 Seth Nazario Bipolar affective disorder F31.9 ; Medication monitoring encounter Z51.81 ; Encounter for screening for malignant neoplasm of colon Z12.11 and Contact with and (suspected) exposure to other communicable diseases Z20.[address] [place] [address] 08/02/2024 Aspen Ascencio [facility] [address] [place] [address] 10/05/2023 Renetta Burgos Nutritional counseling Z71.3 ; Routine physical examination Z00.00 ; Obesity (BMI 30-39.9) E66.9 ; Alcohol use disorder F10.99 and Cerumen impaction H61.20 [facility] [address] [place] [address] 10/07/2023 Jignesh Cisneros Alcohol use disorder F10.99 and Depression F32.[address] [place] [address] 10/10/2023 Seth Nazario Bipolar affective disorder F31.9 ; Alcohol use disorder F10.99 and Medication monitoring encounter Z51.[address] [place] [address] 07/02/2024 Thu Vazquez SAMIR (generalized anxiety disorder) F41.1 ; Depression F32.9 and Alcohol abuse F10.[address] [place] [address] 07/17/2024 Thu Vazquez Depression F32.9 ; SAMIR (generalized anxiety disorder) F41.1 and Alcohol abuse F10.[address] [place] [address] 08/14/2024 Thu Vazquez Depression F32.9 ; SAMIR (generalized anxiety disorder) F41.1 and Alcohol abuse F10.[address] [place] [address] 10/05/2023 Jignesh Cisneros Encounter for screening for malignant neoplasm of colon Z12.11 and Contact with and (suspected) exposure to other communicable diseases Z20.[address] [address] 10/06/2023 Renetta [place] [address] [place] [address] 10/07/2023 Jignesh Cisneros [address] [place] [address] 11/08/2023 Renetta Burgos [address] [address] 11/08/2023 Seth Nazario [address] [place] [address] 06/13/2024 Christine Ordoñez [address] [place] [address] 07/02/2024 Thu Vazquez [address] [address] 08/14/2024 Thu Vazquez Assessments Encounter Date Diagnosis (ICD Code) Assessment Notes Treatment Notes Treatment Clinical Notes Section Notes 08/14/2024 Depression (ICD-10 - F32.9) 07/17/2024 Depression (ICD-10 - F32.9) 10/24/2023 Bipolar affective disorder (ICD-10 - F31.9) 10/10/2023 Alcohol use disorder (ICD-10 - F10.99) Client with pre-existing bipolar affective disorder, long-standing history of treatment with lithium and amitriptyline. Discussed use of oral naltrexone in future if needs to wean off Vivitrol for procedures to avoid alcoholic relapse. Verbalizes understanding. Client states B12 and folate and vitamin D levels were checked by Dr. Dennis 6 weeks ago and that supplementation was written for at this time. Discussed to f/u with Dr. Dennis after discharge for repeat lab work to check levels in another 6 weeks to check supplementation success. Client having troubles with sleep initiation and requests ability to take 10 mg total of melatonin at night. States that feels medications are otherwise doing well and wants no other changes. Will write for lithium monitoring lab work as well as checking LFTs as very elevated a few weeks ago and client requests this and to have his blood levels checked . CBC ordered. Client plans on f/u with his personal psychiatrist upon discharge, Dr. Cuenca. 10/05/2023 Encounter for screening for malignant neoplasm of colon (ICD-10 - Z12.11) 10/05/2023 Contact with and (suspected) exposure to other communicable diseases (ICD-10 - Z20.89) 10/10/2023 Bipolar affective disorder (ICD-10 - F31.9) Client with pre-existing bipolar affective disorder, long-standing history of treatment with lithium and amitriptyline. Discussed use of oral naltrexone in future if needs to wean off Vivitrol for procedures to avoid alcoholic relapse. Verbalizes understanding. Client states B12 and folate and vitamin D levels were checked by Dr. Dennis 6 weeks ago and that supplementation was written for at this time. Discussed to f/u with Dr. Dennis after discharge for repeat lab work to check levels in another 6 weeks to check supplementation success. Client having troubles with sleep initiation and requests ability to take 10 mg total of melatonin at night. States that feels medications are otherwise doing well and wants no other changes. Will write for lithium monitoring lab work as well as checking LFTs as very elevated a few weeks ago and client requests this and to have his blood levels checked . CBC ordered. Client plans on f/u with his personal psychiatrist upon discharge, Dr. Cuenca. 10/05/2023 Routine physical examination (ICD-10 - Z00.00) Continue MRU protocol. Encouraged regular f/u with PCP for recommended screenings and physicals. 10/05/2023 Nutritional counseling (ICD-10 - Z71.3) 10/07/2023 Depression (ICD-10 - F32.9) 10/07/2023 Alcohol use disorder (ICD-10 - F10.99) 07/02/2024 Depression (ICD-10 - F32.9) 07/02/2024 SAMIR (generalized anxiety disorder) (ICD-10 - F41.1) 08/14/2024 SAMIR (generalized anxiety disorder) (ICD-10 - F41.1) 07/02/2024 Alcohol abuse (ICD-10 - F10.10) 10/05/2023 Obesity (BMI 30-39.9) (ICD-10 - E66.9) 10/24/2023 Medication monitoring encounter (ICD-10 - Z51.81) 07/17/2024 SAMIR (generalized anxiety disorder) (ICD-10 - F41.1) 10/24/2023 Encounter for screening for malignant neoplasm of colon (ICD-10 - Z12.11) 07/17/2024 Alcohol abuse (ICD-10 - F10.10) 08/14/2024 Alcohol abuse (ICD-10 - F10.10) 10/10/2023 Medication monitoring encounter (ICD-10 - Z51.81) Client with pre-existing bipolar affective disorder, long-standing history of treatment with lithium and amitriptyline. Discussed use of oral naltrexone in future if needs to wean off Vivitrol for procedures to avoid alcoholic relapse. Verbalizes understanding. Client states B12 and folate and vitamin D levels were checked by Dr. eDnnis 6 weeks ago and that supplementation was written for at this time. Discussed to f/u with Dr. Dennis after discharge for repeat lab work to check levels in another 6 weeks to check supplementation success. Client having troubles with sleep initiation and requests ability to take 10 mg total of melatonin at night. States that feels medications are otherwise doing well and wants no other changes. Will write for lithium monitoring lab work as well as checking LFTs as very elevated a few weeks ago and client requests this and to have his blood levels checked . CBC ordered. Client plans on f/u with his personal psychiatrist upon discharge, Dr. Cuenca. 10/05/2023 Alcohol use disorder (ICD-10 - F10.99) Will request records from client's previous provider concerning last Vivitrol injection. 10/05/2023 Cerumen impaction (ICD-10 - H61.20) 10/24/2023 Contact with and (suspected) exposure to other communicable diseases (ICD-10 - Z20.89) 10/10/2023 Other Discussed sleep hygiene and caffeine intake with encouragement to limit electronic devices an hour before bed and to limit caffeine after 3:00pm. Exercise benefits for mood and health discussed. Psychoeducation regarding psychiatric illness provided. Client was educated about risks and benefits of medication, alternatives to medication, off label uses of medication, suicidal ideation with SSRIs, self-administrati on and compliance with medication along with how to safely store medication. Verbal informed consent obtained. Client agrees to return sooner if symptoms worsen or if suicidal or homicidal ideations occur. Client has the phone number to the 24-hour crisis line at [facility]. Questions addressed. Client verbalized understanding of all information and is agreeable to treatment plan. Client with pre-existing bipolar affective disorder, long-standing history of treatment with lithium and amitriptyline. Discussed use of oral naltrexone in future if needs to wean off Vivitrol for procedures to avoid alcoholic relapse. Verbalizes understanding. Client states B12 and folate and vitamin D levels were checked by Dr. Dennis 6 weeks ago and that supplementation was written for at this time. Discussed to f/u with Dr. Dennis after discharge for repeat lab work to check levels in another 6 weeks to check supplementation success. Client having troubles with sleep initiation and requests ability to take 10 mg total of melatonin at night. States that feels medications are otherwise doing well and wants no other changes. Will write for lithium monitoring lab work as well as checking LFTs as very elevated a few weeks ago and client requests this and to have his blood levels checked . CBC ordered. Client plans on f/u with his personal psychiatrist upon discharge, Dr. Cuenca. Plan Of Treatment No Information Insurance Providers Payer Name Payer Address Payer Phone Subscriber Number Group Number Insured Name Patient Relationship to Insured Coverage Start Date Coverage End Date [facility] Medicare Assure [address] [address] [place] [phone] [id number] Russell Fernandes Self - patient is the insured 3 MEDICAID [address] [place] [address] [id number] DomJamesRussell Self - patient is the insured 4 Medications Administered Medication Instructions Date of Administration Dosage Notes Vivitrol 10/07/2023 380 mg Pt. tolerated well. No questions or concerns at this time. Medical (General) History Medical History History ICD Code AUD Surgical History Surgery Date(Month/Year) Hospitalization History Reason Date(Month/Year) [facility] for detox 2021
== END 2024-09-04 18:50 | disposition home or self-care (01) ==
PROVIDERS: Emergency Provider Nurse Practitioner Family; PCP Internal Medicine
DX: J10.1 Influenza due to other identified influenza virus with other respiratory manifestations (principal); Z20.822 Contact with and (suspected) exposure to COVID-19; E11.9 Type 2 diabetes mellitus without complications; Z79.84 Long term (current) use of oral hypoglycemic drugs; I10 Essential (primary) hypertension; E78.5 Hyperlipidemia, unspecified
CPT/HCPCS: 87426; 87804; 99213; G0463

== ENCOUNTER 2025-03-06 00:08 | Emergency (ER) | payer MEDICARE, MEDICAID, SELFPAY ==
[2025-03-06] VITALS (10 sets, daily range): BP systolic 98–178; BP diastolic 51–91; PULSE 63–74; RESP 15–19; TEMP 36.7; O2SAT 94–100
--- NOTE | ~2025-03-06 | CT_ITS ---
EXAMINATION: CT BRAIN W/O DATE: 03/06/2025 00:27 INDICATION: EtOH. Status post fall. TECHNIQUE: Computed tomography (CT) of the head was performed without intravenous contrast. The dose-length product was 681.00 mGy-cm. Automated exposure control and iterative reconstruction technique were employed. COMPARISON: No prior studies for comparison. FINDINGS: Normal brain parenchymal volume for age. Normal amaya-white differentiation. No acute intracranial hemorrhage, infarction, mass or mass effect. No ventriculomegaly or midline shift. Midline sagittal images demonstrate a normal corpus callosum, craniovertebral junction and sella turcica. Basilar cisterns are patent. There is mild mucosal thickening of the maxillary and ethmoid sinuses. Mastoids are pneumatized. No depressed skull fractures. IMPRESSION: 1. No acute intracranial abnormality. Reviewed, dictated and finalized at location O.
--- NOTE | ~2025-03-06 | CT_ITS ---
EXAMINATION: CT cervical spine wo con DATE: 03/06/2025 00:28 INDICATION: EtOH. Status post fall. TECHNIQUE: Computed tomography (CT) of the cervical spine was performed without intravenous contrast. The dose-length product was 492 mGy-cm. Automated exposure control and iterative reconstruction technique were employed. COMPARISON: None FINDINGS: Vertebral body heights are maintained. Odontoid process is normal. Craniovertebral junction is normal. No evidence for perched facet. Spinous processes are normal. Lung apices are unremarkable. Normal cervical lordosis. IMPRESSION: 1. No acute abnormality of the cervical spine. Reviewed, dictated and finalized at location O.
--- NOTE | ~2025-03-06 | XR_ITS ---
EXAMINATION: XR chest 1V 03/06/2025 00:37 INDICATION: Intoxication PROCEDURE: AP view of the chest COMPARISON: No prior studies for comparison. FINDINGS: The lungs are clear. The cardiomediastinal silhouette is within normal limits. There are no pleural effusions. There is no pneumothorax suspected. IMPRESSION: 1: NO ACUTE CARDIOPULMONARY DISEASE. Reviewed, dictated and finalized at location O.
--- NOTE | 2025-03-06 00:16 | ED.ALCOHOL ---
HPI - Alcohol General Chief Complaint: Alcohol Stated Complaint: UNRESPONSIVE, ETOH+, BLOOD TO MOUTH History of Present Illness HPI narrative: Patient is a 59-year-old male who presents to the emergency department this evening after being found passed out drunk behind a laundromat. Patient is known to do this frequently. He is extremely drunk upon arrival to the emergency department. C-collar was placed by EMS prior to arrival. Patient will respond to sternal rub and wake up. According to EMS, patient is infrequent contacted PD due to violent behavior. Moving all extremities spontaneously. No evidence of trauma Related Data Home Medications ?Medication ?Instructions ?Recorded ?Confirmed ?Last Taken ?Type amitriptyline 100 mg tablet 100 mg PO BID 04/14/23 Unknown History glimepiride 4 mg tablet 4 mg PO BID 04/14/23 Unknown History icosapent ethyl 1 gram capsule 2 g PO BID 04/14/23 Unknown History levothyroxine 75 mcg tablet 75 mcg PO DAILY 04/14/23 Unknown History lithium carbonate 450 mg 450 mg PO BID 04/14/23 Unknown History tablet,extended release metformin 500 mg tablet,extended 500 mg PO BID 04/14/23 Unknown History release 24 hr metoprolol succinate 100 mg 100 mg PO DAILY 04/14/23 Unknown History tablet,extended release 24 hr naltrexone microspheres 380 mg 380 mg IM MONTHLY 04/14/23 Unknown History intramuscular suspension,extended release (Vivitrol) omeprazole 40 mg capsule,delayed 40 mg PO DAILY 04/14/23 Unknown History release Allergies Allergy/AdvReac Type Severity Reaction Status Date / Time No Known Allergies Allergy Verified 09/04/24 18:22 Review of Systems Review of Systems: All systems are reviewed and are negative unless stated otherwise in the HPI. [facility] Past Medical History Medical History Hx of pancreatitis Dietary counseling and surveillance History of ETOH abuse Hyperlipidemia Hypertension Type 2 diabetes mellitus Family History Family History Father Alcoholism Heart disease Mother Heart disease Nerve disorder Sibling Alcoholism Grandparent Alcoholism Social History Social History Smoking status: Never smoker Alcohol intake: current Drinks per week: 7 Substance use: never Exam Narrative: General: Intoxicated, afebrile, in no acute distress. HEENT: PERRL, no rhinorrhea, no post nasal drip, oropharynx clear. Neck: Trachea midline, no JVD, no lymphadenopathy. Cardiovascular: Regular rate and rhythm, no murmurs, rubs or gallops, no peripheral edema. Respiratory: Clear to auscultation bilaterally, no tachypnea, no wheezing, no rhonchi, no rubs, no respiratory distress. Abdomen: Soft, nontender, nondistended, no rebound, no guarding, no peritoneal signs. Musculoskeletal: No joint swelling or deformity, normal muscle tone. Skin: No rashes or petechia, no signs of infection. Psychiatric: Severely intoxicated otherwise calm and non combative. Neurological: Alert and oriented to person, severely intoxicated, will respond to sternal rub, otherwise moving all extremities spontaneously, no focal deficit appreciated within the limitation of the examination. Course Vital Signs Vital signs: Vital Signs Temperature 98.1 F 03/06/25 00:12 Pulse Rate 69 03/06/25 00:12 Respiratory Rate 18 03/06/25 00:12 Blood Pressure 99/70 L 03/06/25 00:12 Pulse Oximetry 95 03/06/25 00:12 Oxygen Delivery Room Air 03/06/25 00:12 Temperature 98.1 F 03/06/25 00:12 Pulse Rate 64 03/06/25 05:01 Respiratory Rate 15 03/06/25 05:01 Blood Pressure 110/59 L 03/06/25 05:00 Pulse Oximetry 94 03/06/25 05:01 Oxygen Delivery Room Air 03/06/25 00:12 MDM - Alcohol MDM Narrative Medical decision making narrative: The patient was evaluated by myself in the emergency department. History is obtained from EMS report and physical exam was performed. External medical records were reviewed at this time. IV was established and pertinent tests were ordered. Laboratory results obtained revealing an alcohol level of 298 otherwise unremarkable. Imaging studies obtained included CT brain and C-spine without IV contrast which was independently interpreted by me revealing no acute process, which is pending final radiology interpretation. Differential diagnosis considerations include alcohol intoxication, substance abuse. Comorbidities impacting this visit include history of alcohol abuse and follow up behavior. I have evaluated and discussed social determinants of health with the patient that could potentially impact subsequent diagnosis and treatment plans. On repeat assessment of the patient, reevaluation revealed that the patient is doing well and is in no acute distress. Patient symptoms have improved since he arrived to our emergency department. Repeat vital signs were all reviewed and noted to be stable. Patient was observed in our emergency department until clinical sobriety. Patient will follow up with his PCP in 3-5 days. Patient was provided with strict return precautions and instructed to return to the emergency department if any new or worsening symptoms develop. The patient was discharged in stable condition. Lab Data 03/06/25 00:14 03/06/25 00:14 Labs: Lab Results 03/06/25 03/06/25 Range/Units 00:14 06:04 WBC 5.5 (4.5-10.0) K/mm3 RBC 3.92 L (4.6-6.20) M/mm3 Hgb 13.0 L (14.0-18.0) g/dL Hct 40.4 L (42.0-52.0) % MCV 103.1 H (80-100) fl MCH 33.2 (26-34) pg MCHC 32.2 (32-36) g/dl RDW 13.8 (11.5-14.5) % Plt Count 191 (150-375) k/mm3 MPV 9.4 (7.4-10.4) fl Immature Gran % (Auto) 0.5 (0-0.5) % Neut % (Auto) 62.0 (45.5-73.1) % Lymph % (Auto) 20.9 (18.3-44.2) % Coos % (Auto) 10.6 H (2.6-8.5) % Eos % (Auto) 4.7 H (0-4.4) % Baso % (Auto) 1.3 H (0.2-1.2) % Lymph # (Auto) 1.15 (0.9-3.2) K/mm3 [place] # (Auto) 0.6 (0.1-0.6) K/mm3 Eos # (Auto) 0.3 (0-0.3) K/mm3 Baso # (Auto) 0.1 (0.0-0.1) K/mm3 Abs Immat Gran (auto) 0.03 (0.00-0.031) K/mm3 Absolute Neuts (auto) 3.4 (1.3-6.7) K/mm3 Absolute Nucleated RBC 0.000 (0.0-0.012) K/mm3 Nucleated RBC % 0.0 (0.0-0.2) % Sodium 141 (137-145) mmol/L Potassium 4.2 (3.4-5.0) mmol/L Chloride 104 (98-107) mmol/L Carbon Dioxide 26 (22-30) mmol/L Anion Gap 11 (4-12) mmol/L BUN 15 (9-20) mg/dL Creatinine 0.81 (0.7-1.3) mg/dL Estim Creat Clear Calc Not Reportable Estimated GFR > 60 (59 - ) Glucose 96 (65-110) mg/dL Calcium 9.5 (8.4-10.2) mg/dL Magnesium 2.5 H (1.6-2.3) mg/dL Total Bilirubin 0.3 (0.2-1.3) mg/dL AST 53 (17-59) U/L ALT 41 (6-50) U/L Alkaline Phosphatase 67 (38-126) U/L Total Protein 7.4 (6.3-8.2) g/dL Albumin 4.6 (3.5-5.1) g/dL Lipase 93 (23-300) U/L Salicylates < 1.0 L (2-20) mg/dL Acetaminophen < 10 L (10-30) ug/mL Ethyl Alcohol 298 Pending (<10) mg/dL Imaging Data Radiologist's impression: ITS Impressions Chest X-Ray 03/06/25 06:50 IMPRESSION: 1: NO ACUTE CARDIOPULMONARY DISEASE. Discharge Plan Discharge Clinical Impression: Alcohol intoxication Patient Disposition: Home Condition: Stable Instructions: Antibiotic Form, Alcohol Intoxication (ED) Additional Instructions: Please follow-up with your family doctor within the next 3-5 days. Return to the emergency department if any new or worsening symptoms develop. Patient Language: Tanzanian Prescriptions: No Action metformin [Glucophage XR] 500 mg tablet extended release 24 hr 500 mg PO BID 30 Days Qty: 60 0RF glimepiride 4 mg tablet 4 mg PO BID 30 Days Qty: 60 0RF albuterol sulfate 90 mcg/actuation HFA aerosol inhaler 2 puff inhalation QID PRN (Reason: shortness of breath or wheezing) Qty: 6.7 0RF (DME) Aerochamber MV Spacer See Rx Instructions .Route Qty: 1 0RF Rx Instructions: As directed icosapent ethyl 1 gram capsule 2 g PO BID Rx Instructions: Take 2 caps in the AM and 2 caps in the PM metformin 500 mg tablet extended release 24 hr 500 mg PO BID glimepiride 4 mg tablet 4 mg PO BID Rx Instructions: administer with breakfast and at dinner metoprolol succinate 100 mg tablet extended release 24 hr 100 mg PO DAILY levothyroxine 75 mcg tablet 75 mcg PO DAILY omeprazole 40 mg capsule,delayed release(DR/EC) 40 mg PO DAILY amitriptyline 100 mg tablet 100 mg PO BID Rx Instructions: take one tab in AM take one tab at hs lithium carbonate 450 mg tablet extended release 450 mg PO BID Rx Instructions: Take one tab AM Take one tab PM Vivitrol 380 mg suspension,extended rel recon 380 mg IM MONTHLY Rx Instructions: for alcoholism mecobalamin (vitamin B12) 1,000 mcg tablet,chewable 2,000 mcg PO DAILY Qty: 360 2RF cholecalciferol (vitamin D3) 1,250 mcg (50,000 unit) capsule 1,250 mcg PO WEEKLY Qty: 8 0RF fenofibrate 54 mg tablet 54 mg PO DAILY Qty: 90 0RF atorvastatin 40 mg tablet See Rx Instructions .ROUTE .COMPLEX Qty: 90 0RF Dose Instruction: TAKE 1 TABLET BY MOUTH EVERY DAY Rx Instructions: TAKE 1 TABLET BY MOUTH EVERY DAY Sutab 1.479-0.188- 0.225 gram tablet See Rx Instructions PO PER PKG DIR Qty: 24 0RF Rx Instructions: PO PER PKG DIR Follow-up/Referrals: Jaylene,Kartik Stewart MD [Primary Care Provider, Unknown] - 3 Days
[2025-03-06 00:20] LABS: Hematocrit 40.4 % (42.0-52.0); Hemoglobin 13.0 g/dL (14.0-18.0); Immature Granulocyte Percent A 0.5 % (0-0.5); Lymphocytes Absolute Auto 1.15 K/mm3 (0.9-3.2); Mean Corpuscular HGB Conc 32.2 g/dl (32-36); Mean Corpuscular Hemoglobin 33.2 pg (26-34); Mean Corpuscular Volume 103.1 fl (80-100); Nucleated Red Blood Cells Absolute Auto 0.000 K/mm3 (0.0-0.012); Nucleated Red Blood Cells Perc 0.0 % (0.0-0.2); Platelet Count Result 191 k/mm3 (150-375); Red Blood Count 3.92 M/mm3 (4.6-6.20); White Blood Count 5.5 K/mm3 (4.5-10.0)
[2025-03-06 00:37] LABS: Alanine Aminotransferase 41 U/L (6-50); Albumin Level 4.6 g/dL (3.5-5.1); Alkaline Phosphatase 67 U/L (38-126); Anion Gap 11 mmol/L (4-12); Aspartate Amino Transferase 53 U/L (17-59); Bilirubin,Total 0.3 mg/dL (0.2-1.3); Blood Urea Nitrogen 15 mg/dL (9-20); Calcium 9.5 mg/dL (8.4-10.2); Carbon Dioxide 26 mmol/L (22-30); Chloride 104 mmol/L (98-107); Estimated Glomerular Filt Rate > 60; Glucose 96 mg/dL (65-110); Lipase 93 U/L (23-300); Magnesium 2.5 mg/dL (1.6-2.3); Potassium 4.2 mmol/L (3.4-5.0); Sodium 141 mmol/L (137-145); Total Protein 7.4 g/dL (6.3-8.2)
[2025-03-06 00:47] LABS: Acetaminophen < 10 ug/mL (10-30); Salicylate < 1.0 mg/dL (2-20)
--- NOTE | 2025-03-06 07:10 | PC.NURSE ---
Patient sleeping at this time. Equal chest rise and fall. Vital signs stable at this time.
--- NOTE | 2025-03-06 08:28 | PC.NURSE ---
Patient awake at this time. This RN attempted to call patient's for a ride home with no answer. Breakfast tray ordered for patient. Patient aware of not being able to leave ER without a safe ride home. Patient verbalized understanding. Patient calm and cooperative at this time
== END 2025-03-06 09:34 | disposition home or self-care (01) ==
PROVIDERS: Emergency Provider Emergency Medicine; PCP Internal Medicine
DX: F10.129 Alcohol abuse with intoxication, unspecified (principal); Y90.8 Blood alcohol level of 240 mg/100 ml or more; I10 Essential (primary) hypertension; E11.9 Type 2 diabetes mellitus without complications; E78.5 Hyperlipidemia, unspecified; Z79.899 Other long term (current) drug therapy
CPT/HCPCS: 36415; 70450; 71045; 72125; 80053; 80143; 80179; 82077; 83690; 83735; 85025; 99284

== ENCOUNTER 2025-03-17 21:18 | Emergency (ER) | payer MEDICARE, MEDICAID, SELFPAY ==
--- OUTSIDE RECORDS SUMMARY | 2010-06-03 09:45 | XMS_ITS | Continuity of Care Document ---
Author Organization [facility] Address [address] [place] [address] Phone Care Team Providers Care Manager Social Services Name Role Phone Morgan OD, Navarro Unavailable Unavailable Procedures Procedure Date Eye Exam & Treatment Refraction Advance Directives Directive Yes / No Effective Date File Name No Information Encounters Encounter Description Practice Location Reason(s) For Visit Diagnoses Date Provider Providers Copied on Encounter [facility], [address], [place], [place], [id number], [place] tel:[phone] SEC [facility] No Information 4-201 0 Morgan OD Navarro. [address] [facility] [address] , [address], [place], [address], [place]. tel:[phone] Family History Family Member Type Diagnosis Age At Onset No Information Payers Payer name Insurance type Covered constitution party ID Authoriza tion(s) P [id number] Social History Type Description Quantity Date Captured Comments Sex Male Smoking Status No Information Chief Complaint And Reason For Visit No Information Reason For Referral Reason For Referral No Information History Of Present Illness Encounter Date Complaint History Of Prese nt Illness No Information Functional Status Date Functional Assessmen t No Information Instructions Date Instruction Additional Infor mation No Information Assessments Type Assessment Date No Information Patient Care Teams Name Effective Dates (start - stop) Status Members No Information
--- OUTSIDE RECORDS SUMMARY | 2024-01-14 08:20 | XMS_ITS ---
Author Organization [facility] Address [address] [place] [id number] Care Team Providers Care Salon Professional Name Role Phone Daxa Dennis Primary Care Provider Encounters Encounter Location Date Provider Diagnosis [address] Dennis [address] [place] [address] 01/14/2024 Daxa Dennis Plan Of Treatment No Information Progress Notes * MICAH TreverDOB: 8 (59 yo M)Acc No.[id number]:01/14/2024 Progress Notes Patient: Trever Prakash Provider: Yousuf Dennis MD :1965 A ge:58 Y S ex:Male Date:01/14/2024 Address:[address] [place] [address] * Electronic signature of Javad Dennis MD on 03/17/2025 at 09:20 PM CDT Sign off status: Pending * Provider: Yousuf Dennis MD Date: 01/14/2024 Generated for Printi ng/Fachristianog/eTransmitting on: 0 03/17/2025 09:20 PM CDT
--- OUTSIDE RECORDS SUMMARY | 2024-05-26 16:00 | XMS_ITS ---
Author Organization [facility] Address [address] [facility] [address] [place] [id number] Care Team Providers Care Acquisition Professional Name Role Phone Daxa Dennis Primary Care Provider Migration, Provider Unavailable Unavailable REASON FOR VISIT [facility] To [facility] Conversion Encounter Medications Medication SIG (Take, Route, Frequency, Duration) Notes Start Date End Date Status Levothyroxine Sodium 75 MCG Tablet 1 tab(s) orally once a day; Duration: 90 days 09/06/2023 Active Farxiga 5 MG Tablet 1 tab(s) orally once a day; Duration: 90 days 09/06/2023 Active Aspirin 81 MG Capsule 1 cap(s) orally every 24 hours Active Vitamin D3 50 MCG Capsule 1 cap(s) orally once a day *Pick strength-form from I and love and youAdStage for eRX* 09/06/2023 Active Atorvastatin Calcium 40 MG Tablet 1 tab(s) orally once a day Not-Taking MetFORMIN (Eqv-Glumetza) 500 MG TABLET, EXTENDED RELEASE 1 TAB(S) ORALLY TWICE A DAY; Duration: 90 DAYS *Please review for potential replacement for e-prescription and drug interaction check* *Reorder from I and love and youAdStage for eRx and Interaction Alerts* 09/06/2023 Active Glimepiride 4 MG Tablet 1 tab(s) orally twice; Duration: 90 days 09/06/2023 Active metFORMIN HCl ER 500 MG Tablet Extended Release 24 Hour 1 tab(s) orally twice daily with meals; Duration: 90 days 05/10/2024 Active Vitamin D (Ergocalciferol) 1.25 MG (16193 UT) Capsule 1 cap(s) orally once a week; Duration: 90 days 09/08/2023 Active Glimepiride 4 MG Tablet 1 tab(s) orally twice daily with meals; Duration: 90 days 05/10/2024 Active Amitriptyline HCl 100 MG Tablet 1 tab(s) orally once a day (at bedtime) Active Omeprazole 40 MG Capsule Delayed Release 1 cap(s) orally once a day Active [employer] Pinery Carbonate ER 450 MG Tablet Extended Release 1 tab(s) orally 2 times a day Active Rosuvastatin Calcium 20 MG Tablet 1 tab(s) orally once a day Active Icosapent Ethyl 1 G CAPSULE 2 CAP(S) ORALLY 2 TIMES A DAY *Please review and pick correct strength-formulat ion from Ilusis options. If intended option is not shown, discontinue and re-order from Quick Search* *Pick strength-form from Ilusis for eRX* Unknown Metoprolol Succinate ER 100 MG Tablet Extended Release 24 Hour 1 tab(s) orally once a day Active Encounters Encounter Location Date Provider Diagnosis [address] [id number] 05/26/2024 Provider Migration Type 2 diabetes mellitus with hyperglycemia E11.65 Assessments Encounter Date Diagnosis (ICD Code) Assessment Notes Treatment Notes Treatment Clinical Notes Section Notes 05/26/2024 Type 2 diabetes mellitus with hyperglycemia (ICD-10 - E11.65) Plan Of Treatment Medication Medication Name Sig Start Date Stop Date Notes metFORMIN HCl ER 500 MG Tabl et Extended Release 24 Hour 1 tab(s) orally twice daily with meals; Duration: 90 days 05/10/2024 Glimepiride 4 MG Tablet 1 tab(s) orally twice daily with meals; Duration: 90 days 05/10/2024 Progress Notes * Trever OBRIENDOB: 8 (59 yo M)Acc No.[id number]:05/26/2024 Patient: Trever Prakash Provider: Becki monterroso Migration :1965 A ge:58 Y S ex:Male Date:05/26/2024 Address:[address] [place] [address] Pcp:Daxa Dennis Subjective: * Chief Complaints: * [facility] To [facility] Conversion Encounter * Medications: T akingFarxiga 5 MG Tablet 1 tab(s) orally once a day Levothyroxine Sodium 75 MCG Tablet 1 tab(s) orally once a day Vitamin D3 50 MCG Capsule 1 cap(s) orally once a day , Notes to Pharmacist: *Pick strength-form from [facility] for eRX*Aspirin 81 MG Capsule 1 cap(s) orally every 24 hours Metoprolol Succinate ER 100 MG Tablet Extended Release 24 Hour 1 tab(s) orally once a day The Pinery Carbonate ER 450 MG Tablet Extended Release 1 tab(s) orally 2 times a day Rosuvastatin Calcium 20 MG Tablet 1 tab(s) orally once a day Omeprazole 40 MG Capsule Delayed Release 1 cap(s) orally once a day Amitriptyline HCl 100 MG Tablet 1 tab(s) orally once a day (at bedtime) Glimepiride 4 MG Tablet 1 tab(s) orally twice MetFORMIN (Eqv-Glumetza) 500 MG TABLET, EXTENDED RELEASE 1 TAB(S) ORALLY TWICE A DAY , Notes to Pharmacist: *Please review for potential replacement for e-prescription and drug interaction check* *Reorder from [facility] for eRx and Interaction Alerts*Vitamin D (Ergocalciferol) 1.25 MG (33283 UT) Capsule 1 cap(s) orally once a week Taking Farxiga 5 MG Tablet 1 tab(s) orally once a day Taking Levothyroxine Sodium 75 MCG Tablet 1 tab(s) orally once a day Taking Vitamin D3 50 MCG Capsule 1 cap(s) orally once a day , Notes to Pharmacist: *Pick strength-form from [facility] for eRX*Taking Aspirin 81 MG Capsule 1 cap(s) orally every 24 hours Taking Metoprolol Succinate ER 100 MG Tablet Extended Release 24 Hour 1 tab(s) orally once a day Taking The Pinery Carbonate ER 450 MG Tablet Extended Release 1 tab(s) orally 2 times a day Taking Rosuvastatin Calcium 20 MG Tablet 1 tab(s) orally once a day Taking Omeprazole 40 MG Capsule Delayed Release 1 cap(s) orally once a day Taking Amitriptyline HCl 100 MG Tablet 1 tab(s) orally once a day (at bedtime) Taking Glimepiride 4 MG Tablet 1 tab(s) orally twice Taking MetFORMIN (Eqv-Glumetza) 500 MG TABLET, EXTENDED RELEASE 1 TAB(S) ORALLY TWICE A DAY , Notes to Pharmacist: *Please review for potential replacement for e- prescription and drug interaction check* *Reorder from [facility] for eRx and Interaction Alerts*Taking Vitamin D (Ergocalciferol) 1.25 MG (27229 UT) Capsule 1 cap(s) orally once a week Not-TakingAtorvastatin Calcium 40 MG Tablet 1 tab(s) orally once a day Not-Taking Atorvastatin Calcium 40 MG Tablet 1 tab(s) orally once a day UnknownIcosapent Ethyl 1 G CAPSULE 2 CAP(S) ORALLY 2 TIMES A DAY , Notes to Pharmacist: *Please review and pick correct strength-formulation from I and love and youspan options. If intended option is not shown, discontinue and re-order from Quick Search* *Pick strength-form from Medispan for eRX*Unknown Icosapent Ethyl 1 G CAPSULE 2 CAP(S) ORALLY 2 TIMES A DAY , Notes to Pharmacist: *Please review and pick correct strength-formulation from I and love and youspan options. If intended option is not shown, discontinue and re-order from Quick Search* *Pick strength-form from Medispan for eRX* Assessment: * Assessment: 1. T ype 2 diabetes mellitus with hyperglycemia - E11.65 (Primary) Plan: * Treatment: * Electronic signature of Velma ornelas Migration on 03/17/2025 at 09:19 PM CDT Sign off status: Pending * Provider: Becki monterroso Migration Date: 07/26/2023 Generated for Lester sims/Arlen/Yvette on: 0 03/17/2025 09:19 PM CDT
--- OUTSIDE RECORDS SUMMARY | 2025-01-14 09:00 | XMS_ITS ---
Author Organization [facility] Address [address] [place] [address] Care Team Providers Care Skip Loader Name Role Phone Aspen Ascencio Primary Care Provider Thu Vazquez Unavailable [phone] REASON FOR VISIT 2 Month Psych F/U & Med Refill Social History Sex Assigned At : Social History Observation Description Sex Assigned At Male Encounters Encounter Location Date Provider Diagnosis [address] [place] [address] 01/14/2025 Thu Vazquez Plan Of Treatment No Information Progress Notes * NETTERussell WAGNERDOB:[birth year] (59 yo M)Acc No.[id number]:01/14/2025 UNLOCKED PROGRESS NOTE Patient: Russell SOMMER Provider: PENG Palacios :1965 A ge:59 Y S ex:Male Date:01/14/2025 [facility] [id number] Pcp:Aspen Ascencio Subjective: * Chief Complaints: * 1 . 2 Month Psych F/U & Med Refill. * Medical History: Objective: * Vitals: Assessment: Plan: * Treatment: * * Electronic signature of Tita Vazquez on 03/17/2025 at 09:19 PM CDT Sign off status: Pending * Provider: PENG Palacios Date: 0 01/14/2025 Generated for Printi ng/Fachristianog/eTransmitting on: 03/17/2025 09:19 PM CDT
--- OUTSIDE RECORDS SUMMARY | 2025-03-14 08:00 | XMS_ITS ---
Author Organization [facility] Address [address] [place] [address] Care Team Providers Care Navy Seal Name Role Phone Aspen Ascencio Primary Care Provider Thu Vazquez Unavailable [phone] REASON FOR VISIT 4 week F/U Medications Medication SIG (Take, Route, Frequency, Duration) Notes Start Date End Date Status Icosapent Ethyl 1 GM 2 capsules with ambrosio ls Orally Twice a day Not-Taking Amitriptyline HCl 100 MG 2 tablets at bedtime Orally Once a day; Duration: 30 days On MRU Active [place] Carbonate ER 300 MG 1 tablet in the morning and 2 tablets at bedtime Orally Twice a day; Duration: 30 days On MRU Active diazePAM 2 MG TAKE 2 TABLETS BY MOUTH TWICE DAILY NEEDED; Duration: 30 02/20/2025 Active Citalopram Hydrobromide 30 MG 1 tablet Orally Once a day; Duration: 30 days Active Vitamin D2 50 MCG (2000 UT) 1 tablet Orally Once a day Not-Taking Vitamin B-12 1000 MCG 1 tablet Orally On ce a day Not-Taking Levothyroxine Sodium 75 MCG 1 tablet in the morning on an empty stomach Orally Once a day Active Vitamin D3 50 MCG (2000 UT) 1 capsule Orally Once a day Not-Taking Vivitrol 380 MG as directed Intramuscular every 28 days 10/06/2023 Not-Taking Glimepiride 4 MG 1 tablet with breakfast or the first main meal of the day Orally Once a day Active Aspirin 81 81 MG 1 tablet Orally Once a day Active Rosuvastatin Calcium 20 MG 1 tablet Orally Once a day Active Metoprolol Succinate ER 100 MG 1 tablet Orally Once a day Active Farxiga 5 MG 1 tablet Orally Once a day Active metFORMIN HCl ER 500 MG 1 tablet with evening meal Orally Once a day Active Melatonin 5 MG 1-2 tablet in the evening Orally Once a day; Duration: 30 days As needed for insomnia On MRU unit 10/10/2023 Active Omeprazole 40 MG 1 capsule 30 minutes before morning meal Orally Once a day Active Naltrexone Active Social History Sex Assigned At : Social History Observation Description Sex Assigned At Male Encounters Encounter Location Date Provider Diagnosis [address] [place] [address] 03/14/2025 Thu Vazquez Plan Of Treatment No Information Progress Notes * Russell OBRIENDOB:[birth year] (59 yo M)Acc No.[id number]:03/14/2025 UNLOCKED PROGRESS NOTE Patient: Russell SOMMER Provider: PENG Palacios :1965 A ge:59 Y S ex:Male Date:03/14/2025 Address:[address] [place] [address] [facility] Pcp:Aspen Ascencio Subjective: * Chief Complaints: * 1 . 4 week F/U. * HPI: C SSRS Interpretation and Follow Up Plan: CSSRS Interpretation and Follow Up Plan C SSRS Screen documented using SF Y es, R isk Disposition from L ow - No Follow Up Plan Required, F ollow Up Plan N o Follow Up Plan required at this time., T imeframe of Screening T armand.? I nterim History: Emergency room visit N o. W as hospitalized N o.? D epression Screening: PHQ-9 L ittle interest or pleasure in doing things S everal days, F eeling down, depressed, or hopeless N ot at all, T rouble falling or staying asleep, or sleeping too much N ot at all, F eeling tired or having little energy N ot at all, P oor appetite or overeating N ot at all, F eeling bad about yourself or that you are a failure, or have let yourself or your family down S everal days, T rouble concentrating on things, such as reading the newspaper or watching television S everal days, M oving or speaking so slowly that other people could have noticed; or the opposite, being so fidgety or restless that you have been moving around a lot more than usual S everal days, T houghts that you would be better off or of hurting yourself in some way N ot at all, T otal Score 4 , I nterpretation M inimal Depression. * Medical History: * Medications: T aking Naltrexone , Taking Melatonin 5 MG Tablet 1-2 [...] stomach Orally Once a day , Taking [place] Carbonate ER 300 MG Tablet Extended Release 1 tablet in the morning and 2 tablets at bedtime Orally Twice a day , Notes to Pharmacist: On MRU, Taking Amitriptyline HCl 100 MG Tablet 2 tablets at bedtime Orally Once a day , Notes to Pharmacist: On MRU, Taking Citalopram Hydrobromide 30 MG Capsule 1 tablet Orally Once a day , Taking diazePAM 2 MG Tablet TAKE 2 TABLETS BY MOUTH TWICE DAILY NEEDED , Not-Taking Vivitrol 380 MG Suspension Reconstituted as [...] signature of Tita Vazquez on 03/17/2025 at 09:20 PM CDT Sign off status: Pending * Provider: PENG Palacios Date: 0 03/14/2025 Generated for Lester sims/Arlen/Yvette on: 0 03/17/2025 09:20 PM CDT History and Physical Notes * HPI (History of Present Illness) Category Sub-Category Detail Notes Category Not es Interim History Was hospitalized No Emergency room visit No Depression Screening PHQ-9 Little inte rest or pleasure in doing things: Several days Feeling down, depressed, or hopeless: No t at all Trouble falling or staying asleep, or sl eeping too much: Not at all Feeling tired or having little energy: N ot at all Poor appetite or overeating: Not at all Feeling bad about yourself o r that you are a failure, or have let yourself or your family down: Several days Trouble concentrating on thi ngs, such as reading the newspaper or watching television: Several days Moving or speaking so slowly that other people could have noticed; or the opposite, being so fidgety or restless that you have been moving around a lot more than usual: Several days Thoughts that you would be b alexey off or of hurting yourself in some way: Not at all Total Score: 4 Interpretation: Minimal Depression CSSRS Interpretation and Follow Up Plan CSSRS Interpretation and Follow Up Plan CSSRS Screen documented using SF: Yes Risk Disposition from SF: Low - No Follo w Up Plan Required Follow Up Plan: No Follow Up Plan requir ed at this time. Timeframe of Screening: Today
--- NOTE | ~2025-03-17 | XR_ITS ---
EXAMINATION: XR chest 2V 03/17/2025 22:08 INDICATION: Chest pain. Shortness of breath TECHNIQUE:Frontal and lateral images of the chest were obtained. COMPARISON: 03/06/2025 FINDINGS: Small opacities in the lower lungs. The cardiomediastinal silhouette is within normal limits. There are no pleural effusions. There is no pneumothorax suspected. IMPRESSION: 1: Small opacities in the mid and lower lungs which represents atelectasis/scarring or infiltrates. Reviewed, dictated and finalized at location Q. IMPRESSION: 1: Small opacities in the mid and lower lungs which represents atelectasis/scar ring or infiltrates.
--- NOTE | ~2025-03-17 | CT_ITS ---
EXAMINATION: CTA chest PE abdomen pel DATE: 03/18/2025 14:03 CDT INDICATION: Chest pain TECHNIQUE: Computed tomographic angiography (CTA) of the chest, abdomen, and pelvis was performed with 100 mL Omnipaque-350 intravenous contrast. The dose- length product was 1368.87 mGy-cm. Maximum intensity projection 3D- reconstructions of the aorta and other arteries were constructed by the technologist on a separate workstation. COMPARISON: No prior studies for comparison. . FINDINGS: CHEST CTA: Study is technically adequate without evidence for pulmonary embolism. No evidence for aortic aneurysm or dissection. No significant pleural or pericardial effusion. Small hiatal hernia. No thoracic lymphadenopathy. No endobronchial lesions. No focal airspace consolidation. No acute osseous abnormality. Study degraded by motion artifact. No suspicious pulmonary nodules or masses. No focal airspace consolidation. No pneumothorax. ABDOMEN AND PELVIS CTA: Fatty infiltration of the liver. Gallbladder is distended, nonspecific. The spleen, pancreas, adrenal glands and right kidney are unremarkable. There is a left renal cysts. No significant vascular abnormality. No lymphadenopathy. IMPRESSION: 1. No acute abnormality. Reviewed, dictated and finalized at location O. IMPRESSION: 1. No acute abnormality.
--- NOTE | 2025-03-17 21:18 | ECG_ITS ---
Test Date: 2025-03-17 21:24:51 Measurements Intervals [place] Rate: 121 P: 52 LA: 161 QRS: 51 QRSD: 79 T: 69 QT: 338 QTc: 480 Interpretive Statements SINUS TACHYCARDIA SEPTAL MYOCARDIAL INFARCTION , OF INDETERMINATE AGE [40+ ms Q WAVE IN V1/V2] No previous ECG available for comparison Electronically Signed On 03-18-2025 10:34:41 CDT by Kadeem Garcias M.D.
--- OUTSIDE RECORDS SUMMARY | 2025-03-17 21:20 | XMS_ITS | Patient Health Record ---
Author Organization [facility] Address [address] [facility] [address] [facility] [address] [id number] Care Team Providers Care Steamer Blocker Name Role Phone Daxa Dennis Primary Care Provider [phone] Migration, Provider Unavailable Unavailable Reason For Referral No Information Medications Medication SIG (Take, Route, Frequency, Duration) Notes Start Date End Date Status Rosuvastatin Calcium 20 MG Tablet 1 tab(s) orally once a day Active Icosapent Ethyl 1 G CAPSULE 2 CAP(S) ORALLY 2 TIMES A DAY *Please review and pick correct strength-formulat ion from HydroLogex options. If intended option is not shown, discontinue and re-order from Quick Search* *Pick strength-form from HydroLogex for eRX* Unknown Amitriptyline HCl 100 MG Tablet 1 tab(s) orally once a day (at bedtime) Active Omeprazole 40 MG Capsule Delayed Release 1 cap(s) orally once a day Active Levothyroxine Sodium 75 MCG Tablet 1 tab(s) orally once a day; Duration: 90 days 09/06/2023 Active MetFORMIN (Eqv-Glumetza) 500 MG TABLET, EXTENDED RELEASE 1 TAB(S) ORALLY TWICE A DAY; Duration: 90 DAYS *Please review for potential replacement for e-prescription and drug interaction check* *Reorder from HydroLogex for eRx and Interaction Alerts* 09/06/2023 Active Farxiga 5 MG Tablet 1 tab(s) orally once a day; Duration: 90 days 09/06/2023 Active Glimepiride 4 MG Tablet 1 tab(s) orally twice; Duration: 90 days 09/06/2023 Active metFORMIN HCl ER 500 MG Tablet Extended Release 24 Hour 1 tab(s) orally twice daily with meals; Duration: 90 days 05/10/2024 Active Aspirin 81 MG Capsule 1 cap(s) orally every 24 hours Active Vitamin D3 50 MCG Capsule 1 cap(s) orally once a day *Pick strength-form from HydroLogex for eRX* 09/06/2023 Active Vitamin D (Ergocalciferol) 1.25 MG (52336 UT) Capsule 1 cap(s) orally once a week; Duration: 90 days 09/08/2023 Active Metoprolol Succinate ER 100 MG Tablet Extended Release 24 Hour 1 tab(s) orally once a day Active Glimepiride 4 MG Tablet 1 tab(s) orally twice daily with meals; Duration: 90 days 05/10/2024 Active Atorvastatin Calcium 40 MG Tablet 1 tab(s) orally once a day Not-Taking [place] Carbonate ER 450 MG Tablet Extended Release 1 tab(s) orally 2 times a day Active Problems Problem Type SNOMED Code ICD Code Onset Dates Problem Status W/U Status Risk Notes Problem Hypothyroidism (87426145) Hypothyroidism, unspecified (E03.9) Active confirmed Problem Hyperglycemia due to type 2 diabetes mellitus (815407055003362) Type 2 diabetes mellitus with hyperglycemia (E11.65) Active confirmed Problem Type II diabetes mellitus without complication (319282424) Type 2 diabetes mellitus without complications (E11.9) Active confirmed Problem Vitamin D deficiency (63206440) Vitamin D deficiency, unspecified (E55.9) Active confirmed Problem Alcohol dependence (27492441) Alcohol dependence, uncomplicated (F10.20) Active confirmed Problem Hyperlipidemia (39184521) Hyperlipidemia, unspecified (E78.5) Active confirmed Encounters Encounter Location Date Provider Diagnosis [address] [id number] 05/26/2024 Provider Migration Type 2 diabetes mellitus with hyperglycemia E11.[address] Dennis [address] [place] [address] 03/21/2024 Daxa Dennis [id number] [place] [address] 03/27/2024 Daxa Dennis [address] [place] [address] 05/09/2024 Daxa Dennis Type 2 diabetes mellitus with hyperglycemia E11.65 Assessments Encounter Date Diagnosis (ICD Code) Assessment Notes Treatment Notes Treatment Clinical Notes Section Notes 05/09/2024 Type 2 diabetes mellitus with hyperglycemia (ICD-10 - E11.65) 05/26/2024 Type 2 diabetes mellitus with hyperglycemia (ICD-10 - E11.65) Plan Of Treatment Pending Test Test Name Order Date HgA1c 09/06/2023 VITAMIN B1 (THIAMINE), BLOOD 09/06/2023 Medical (General) History Medical History History ICD Code Type 2 diabetes mellitus with hyperglyce poncho E11.65 Hypothyroidism, unspecified E03.9 Hyperlipidemia, unspecified E78.5 Alcohol dependence, uncomplicated F10.20
--- OUTSIDE RECORDS SUMMARY | 2025-03-17 21:21 | XMS_ITS | Clinical Summary ---
Author Organization [facility] Address [address] [place] [address] Phone Care Team Providers Care Billing Clerk Name Role Phone Kartik Mariee MD Primary Care Provider [phone] Medications lithium (ESKALITH) 450 MG Tablet Controlled Release Take 450 mg by mouth 2 times daily. Active ergocalciferol (Drisdol) 92943 UNIT Capsule Take 50,000 Units by mouth [...] 4:22 PM CDT Height 180.3 cm (5' 11) 09/22/2023 4:22 PM CDT Body Mass Index 29.29 09/22/2023 4:22 PM CDT Plan of Treatment Health Maintenance Due Date Last Done Comments Hepatitis C Virus (HCV) Screening 1965 TdaP Immunization 1965 Hepatitis B Immunization (1 of 3 - 19+ 3-dose series) 12/21/1986 Cologuard 12/21/2012 Colonoscopy 12/21/2012 Colorectal Cancer Screening 12/21/2012 Immunochemical Fecal Occult Blood 12/21/2012 Pneumococcal Immunization (50+ years) (1 of 1 - PCV) 12/21/2017 PSA Discussion 12/21/2022 Influenza Immunization (#1) 03/11/202504/10, 05/07/2021, 04/08/2020, Additional history exists SARS-COV-2 Immunization ( season) 2025 09/21/2022, 10/13/2021, 04/04/2021, Additional history exists Respiratory Syncytial Virus (RSV) Immunization (Adult) (1 - 1-dose 75+ series) 12/21/2042 Zoster Immunization Completed 12/13/2021, Human Papillomavirus (HPV) Immunization Aged Out No longer eligible based on patient's age to complete this topic Meningococcal Immunization (ACWY) Aged Out No longer eligible based on patient's age to complete this topic Rotavirus Immunization Aged Out No lo nger eligible based on patient's age to complete this topic Insurance MEDICAID [place] MEDICARE C [facility] Care Teams Billing Clerk Relationship Specialty Start Date End Date Kartik Mariee MD PCP - General Internal Medicine 09/22/23
--- OUTSIDE RECORDS SUMMARY | 2025-03-17 21:21 | XMS_ITS | Patient Health Record ---
Author Organization [facility] Address [address] [place] [address] Care Team Providers Care Fagoter Name Role Phone Sparr, Aspen Primary Care Provider Christine Ordoñez Unavailable [phone] Thu Vazquez Unavailable [phone] Allergies No Known Allergies Results Component Value Reference Range Notes Vitamin B12 and Folate Reviewed date:08/06/2024 04:09:08 PM Interpretation: Performing Lab:[employer], [address] [facility], Phone - [phone], [facility] Notes/Report: Vitamin B12 945 110-4705 pg/mL Folate (Folic Acid), Serum 12.0 >3.0 ng/mL A serum folate concentration of less than 3.1 ng/mL is considered to represent clinical deficiency. CBC With Differential/Platel et* Reviewed date:08/06/2024 04:09:08 PM Interpretation: Performing Lab:[employer], [address] [facility], Phone - [phone], [facility] Notes/Report: WBC 6.5 3.4-10.8 x10E3/uL RBC 3.65 [...] % Immature Grans (Abs) 0.0 0.0-0.1 x10E3/uL [place] (Eskalith(R)), Serum Reviewed date:08/06/2024 04:09:08 PM Interpretation: Performing Lab[facility], [address] [facility], Phone - [phone], Director - [facility] Notes/Report: [place] (Eskalith(R)), Serum 0.7 0.5-1.2 mmol /L A concentration of 0.5-0.8 mmol/L is advised [...] 25-Hydroxy* Reviewed date:08/06/2024 04:09:08 PM Interpretation: Performing Lab:[facility], [address] [facility], Phone - [phone], Director [facility] Notes/Report: Vitamin D, 25-Hydroxy 23.0 30.0-100.0 ng/mL Vitamin D deficiency has been defined by the [place] of Medicine and an Endocrine Society practice guideline as a level of serum 25-OH vitamin D less than 20 ng/mL (1,2). The Endocrine Society went on to further define vitamin D insufficiency as a level between 21 and 29 ng/mL (2). 1. IOM ([place] of Medicine). 2010. Dietary reference intakes for calcium and D. [place]: The National Academies Press. 2. Lefty MF, Malka KAM, [place] , et al. Evaluation, treatment, and prevention of vitamin D deficiency: an Endocrine Society clinical practice guideline. JCEM. 2010; 96(7):1911-30. Lipid Panel* Reviewed date:08/06/2024 04:09:08 PM Interpretation: Performing Lab:[facility], [address] [place] [address], Phone - [phone], Director - [facility] Notes/Report: Cholesterol, Total 153 100-199 mg/dL Triglycerides 69 0-149 mg/dL HDL Cholesterol 80 >39 mg/dL VLDL Cholesterol Asmuel 14 5-40 mg/dL LDL Chol Calc ([facility]) 59 0-99 mg/dL TSH reflex to T4F Reviewed date:08/06/2024 04:09:08 PM Interpretation: Performing Lab:[facility] [place], [address] [place] [address], Phone - [phone], Director [facility] Notes/Report: TSH 3.690 0.450-4.500 uIU/mL CMP 14 Comprehensive Metabol ic Panel* Reviewed date:08/06/2024 04:09:08 PM Interpretation: Performing Lab:[facility], [address] [place] [address], Phone - [phone], Director - [facility] Notes/Report: Glucose 136 70-99 mg/dL BUN 9 [...] 0-40 IU/L ALT (SGPT) 45 0-44 IU/L 12 Panel Urine Drug Screen Reviewed date:09/17/2024 05:00:05 PM Interpretation: Performing Lab: Notes/Report: THC NEG SELVIN NEG MOP (OPI) NEG AMP NEG MET NEG BAR NEG BZO POS MDMA NEG MTD NEG OXY NEG PCP NEG BUP NEG 14 Panel Urine Drug Screen Reviewed date:02/11/2025 04:29:00 PM Interpretation: Performing Lab: Notes/Report: THC neg SELVIN neg MOP (OPI) neg AMP neg MET neg BAR neg BZO POS MDMA neg MTD neg OXY neg PCP neg BUP neg TCA POS FTY neg Creatinine neg Reason For Referral No Information Medications Medication SIG (Take, Route, Frequency, Duration) Notes Start Date End Date Status metFORMIN HCl ER 500 MG 1 tablet with evening meal Orally Once a day Active Vitamin D2 50 MCG (1999 UT) 1 tablet Orally Once a day Not-Taking Melatonin 5 MG 1-2 tablet in the evening Orally Once a day; Duration: 30 days As needed for insomnia On U unit 10/10/2023 Active Vitamin B-12 1000 MCG 1 tablet Orally On ce a day Not-Taking Glimepiride 4 MG 1 tablet with breakfast or the first main meal of the day Orally Once a day Active Omeprazole 40 MG 1 capsule 30 minutes before morning meal Orally Once a day Active Icosapent Ethyl 1 GM 2 capsules with ambrosio ls Orally Twice a day Not-Taking Levothyroxine Sodium 75 MCG 1 tablet in the morning on an empty stomach Orally Once a day Active Aspirin 81 81 MG 1 tablet Orally Once a day Active Naltrexone Active Vitamin D3 50 MCG (1999 UT) 1 capsule Orally Once a day Not-Taking Vivitrol 380 MG as directed Intramuscular every 28 days 10/06/2023 Not-Taking Rosuvastatin Calcium 20 MG 1 tablet Orally Once a day Active Amitriptyline HCl 100 MG 2 tablets at bedtime Orally Once a day; Duration: 30 days On [facility] Active [place] Carbonate ER 300 MG 1 tablet in the morning and 2 tablets at bedtime Orally Twice a day; Duration: 30 days On U Active Metoprolol Succinate ER 100 MG 1 tablet Orally Once a day Active diazePAM 2 MG TAKE 2 TABLETS BY MOUTH TWICE DAILY NEEDED; Duration: 30 02/20/2025 Active Farxiga 5 MG 1 tablet Orally Once a day Active Citalopram Hydrobromide 30 MG 1 tablet Orally Once a day; Duration: 30 days Active Social History Tobacco Use: Social History Observation Description Date Details (start date - stop date) Never Smoker NA - NA Sex Assigned At : Social History Observation Description Sex Assigned At Male PRAPARE Question Answer Notes Date Completed/Updated: 11/02/2024 What is your current housing situation? I have h ousing Are you worried about losing your housing? No What is the highest level of school that you have finished? More than high school What is your current work situation? Unemployed and seeking work In the past year, have you o r any family members you live with been unable to get any of the following when it was really needed? Check all that apply I do not have problems meeting my needs Has lack of transportation k ept you from medical appointments, meetings, work or from getting things needed for daily living? Yes, it has kept me from non-medical meetings, appointments, work, or getting things needed for daily living,No How often do you see or talk to people that you care about and feel close to? (For example: talking to friends on the phone, visiting friends or family, going to druze or club meetings) 3 to 5 times a week How stressed are you? Stress is when someone feels tense, nervous, anxious, or can\t sleep at night because their mind is troubled A little bit In the past year have you sp ent more than 2 nights in a row in a half-way, usp, long-term center, or juvenile correctional facility? Yes Do you feel physically and e motionally safe where you currently live? Yes In the past year, have you b een afraid of your partner or ex-partner? No PRAPARE Score: 5 Tobacco Control (Standard) Question Answer Notes Tobacco use: Nonsmoker Problems Problem Type SNOMED Code ICD Code Onset Dates Problem Status W/U Status Risk Notes Problem Depression (139919659) Depression (F32.9) 4 Active confirmed Problem Alcohol abuse (17321303) Alcohol abuse (F10.10) Active confirmed Problem Bipolar affective disorder (97453712) Bipolar affective disorder (F31.9) Active confirmed Problem Generalized anxiety disorder (41155492) SAMIR (generalized anxiety disorder) (F41.1) Active confirmed Problem Overweight (573220936) Over weight (E66.3) Active confirmed Problem Alcohol use disorder (2670196050) Alcohol use disorder (F10.99) Active confirmed Problem Obesity (740458302) Obesity (BMI 30-39.9) (E66.9) Active confirmed Vital Signs Heart Rate 107 /min 02/11/2025 Temperature 97.4 degrees Fahrenheit 07/02/2024 Respiratory Rate 16 /min 07/02/2024 Blood pressure diastolic 100 mm Hg 02/11/2025 Oximetry 95 % 02/11/2025 Height 68.5 in 02/11/2025 Blood pressure systolic 170 mm Hg 02/11/2025 Weight 196.6 lbs 02/11/2025 BMI 29.45 kg/m2 02/11/2025 Encounters Encounter Location Date Provider Diagnosis [address] [address] 08/02/2024 Aspen Ascencio [address] [address] 07/02/2024 Thu Vazquez SAMIR (generalized anxiety disorder) F41.1 ; Depression F32.9 and Alcohol abuse F10.[address] [address] 07/17/2024 Thu Vazquez Depression F32.9 ; SAMIR (generalized anxiety disorder) F41.1 and Alcohol abuse F10.[address] [address] 08/14/2024 Thu Vazquez Depression F32.9 ; SAMIR (generalized anxiety disorder) F41.1 and Alcohol abuse F10.[address] [address] 09/17/2024 Thu Vazquez Depression F32.9 ; SAMIR (generalized anxiety disorder) F41.1 ; Alcohol abuse F10.10 and Nutritional counseling Z71.[address] [address] 10/16/2024 Thu Vazquez Depression F32.9 ; SAMIR (generalized anxiety disorder) F41.1 and Alcohol abuse F10.[address] [address] 11/13/2024 Thu Vazquez Depression F32.9 ; SAMIR (generalized anxiety disorder) F41.1 and Alcohol abuse F10.[address] [address] 02/11/2025 Thu Vazquez Over weight E66.3 ; SAMIR (generalized anxiety disorder) F41.1 ; Depression F32.9 and Alcohol abuse F10.[address] [address] 06/13/2024 Christine Ordoñez [address] [address] 07/02/2024 Thu Vazquez [facility] [address] [address] 08/14/2024 Thu Vazquez [address] [address] 09/20/2024 Thu Vazquez [address] [address] 11/05/2024 Aspen Ascencio [address] [address] 03/14/2025 Aspen Ascencio Assessments Encounter Date Diagnosis (ICD Code) Assessment Notes Treatment Notes Treatment Clinical Notes Section Notes 02/11/2025 Over weight (ICD-10 - E66.3) 09/17/2024 Depression (ICD-10 - F32.9) 09/17/2024 SAMIR (generalized anxiety disorder) (ICD-10 - F41.1) 11/13/2024 Depression (ICD-10 - F32.9) 10/16/2024 Depression (ICD-10 - F32.9) 08/14/2024 Depression (ICD-10 - F32.9) 07/02/2024 Depression (ICD-10 - F32.9) 07/02/2024 SAMIR (generalized anxiety disorder) (ICD-10 - F41.1) 07/17/2024 Depression (ICD-10 - F32.9) 07/17/2024 SAMIR (generalized anxiety disorder) (ICD-10 - F41.1) 07/02/2024 Alcohol abuse (ICD-10 - F10.10) 10/16/2024 SAMIR (generalized anxiety disorder) (ICD-10 - F41.1) 08/14/2024 SAMIR (generalized anxiety disorder) (ICD-10 - F41.1) 02/11/2025 SAMIR (generalized anxiety disorder) (ICD-10 - F41.1) 11/13/2024 SAMIR (generalized anxiety disorder) (ICD-10 - F41.1) 09/17/2024 Alcohol abuse (ICD-10 - F10.10) 02/11/2025 Depression (ICD-10 - F32.9) 11/13/2024 Alcohol abuse (ICD-10 - F10.10) 09/17/2024 Nutritional counseling (ICD-10 - Z71.3) 10/16/2024 Alcohol abuse (ICD-10 - F10.10) 08/14/2024 Alcohol abuse (ICD-10 - F10.10) 07/17/2024 Alcohol abuse (ICD-10 - F10.10) 02/11/2025 Alcohol abuse (ICD-10 - F10.10) Plan Of Treatment No Information Insurance Providers Payer Name Payer Address Payer Phone Subscriber Number Group Number Insured Name Patient Relationship to Insured Coverage Start Date Coverage End Date [facility] Medicare Assure [address] [address] [place] [address] [id number] Russell Fernandes Self - patient is the insured 3 MEDICAID [address] [facility] [place] [address] [id number] Russell Fernandes Self - patient is the insured 4 Medications Administered Medication Instructions Date of Administration Dosage Notes Vivitrol 10/07/2023 380 mg Pt. tolerated well. No questions or concerns at this time. Medical (General) History Medical History History ICD Code AUD Surgical History Surgery Date(Month/Year) Hospitalization History Reason Date(Month/Year) [facility] for detox 2021
[2025-03-17 21:23] VITALS: BP 146/93; PULSE 128; RESP 22; TEMP 36.9; O2SAT 95
[2025-03-17 21:44] LABS: Hematocrit 42.0 % (42.0-52.0); Hemoglobin 14.3 g/dL (14.0-18.0); Immature Granulocyte Percent A 0.4 % (0-0.5); Lymphocytes Absolute Auto 0.97 K/mm3 (0.9-3.2); Mean Corpuscular HGB Conc 34.0 g/dl (32-36); Mean Corpuscular Hemoglobin 33.7 pg (26-34); Mean Corpuscular Volume 99.1 fl (80-100); Nucleated Red Blood Cells Absolute Auto 0.000 K/mm3 (0.0-0.012); Nucleated Red Blood Cells Perc 0.0 % (0.0-0.2); Platelet Count Result 212 k/mm3 (150-375); Red Blood Count 4.24 M/mm3 (4.6-6.20); White Blood Count 13.0 K/mm3 (4.5-10.0)
[2025-03-17 21:54] LABS: INR 1.0; Magnesium 1.7 mg/dL (1.6-2.3); Prothrombin Time 12.7 Seconds (11.1-14.7)
[2025-03-17 21:55] LABS: Partial Thromboplastin Time 22.3 Seconds (22.3-36.8)
[2025-03-17 21:59] LABS: Alanine Aminotransferase 59 U/L (6-50); Albumin Level 5.3 g/dL (3.5-5.1); Alkaline Phosphatase 85 U/L (38-126); Anion Gap 26 mmol/L (4-12); Aspartate Amino Transferase 95 U/L (17-59); Bilirubin,Total 1.7 mg/dL (0.2-1.3); Blood Urea Nitrogen 8 mg/dL (9-20); Calcium 9.5 mg/dL (8.4-10.2); Carbon Dioxide 14 mmol/L (22-30); Chloride 98 mmol/L (98-107); Estimated CRCL calculation 97 ml/min; Estimated Glomerular Filt Rate > 60; Glucose 133 mg/dL (65-110); Lipase 80 U/L (23-300); Potassium 3.9 mmol/L (3.4-5.0); Sodium 138 mmol/L (137-145); Total Protein 8.4 g/dL (6.3-8.2)
[2025-03-17 22:09] LABS: Troponin I < 0.012 ng/mL (0.000-0.034)
[2025-03-17] MEDS: SODIUM CHLORIDE 0.9% IV 1,000 ML 999 ML IV CONT (22:42)
[2025-03-17 22:52] VITALS: PULSE 15
[2025-03-17 22:56] VITALS: BP 156/94; PULSE 116; RESP 20; O2SAT 97
--- OUTSIDE RECORDS SUMMARY | 2025-03-17 22:56 | XMS_ITS | Clinical Summary ---
Author Organization [facility] [employer] Address [address] [place] [address] Care Team Providers Care Heel Gummer Name Role Phone None, Physician Primary Care Provider Unavailabl e Source Comments [facility] [employer],non-owned Affiliates and Associated Physician Practices is amultiple site organization consisting of ambulatory clinics and hospital sitesin [place], [place], [place] and [place]. This disclosure is being madepursuant to the Care Everywhere program and may not contain all information available regarding this patient. Last updated 18.[employer] Allergies No known active allergies Medications * Be aware that medications may not be up to date on this document. Alwaysverify current medications with the patient. omeprazole (PriLOSEC) 40 MG capsuleIndicat ions:Gastroeso phageal Reflux Disease Take 1 (one) capsule by mouth daily before breakfast Reasons: Gastroesophageal Reflux Disease Active amitriptyline (Elavil) 100 MG tabletIndicati ons:Depressive Phase Bipolar Mood Disorder Take 2 (two) tablets by mouth at bedtime Reasons: Depressive Phase of Manic-Depression Active metoprolol succinate XL 24hr (Toprol XL) 100 MG tablet Take 1 (one) tablet by mouth once daily Activ e lithium CR (Eskalith CR) 450 MG tabletIndicati ons:Bipolar Mood Disorder Take 1 (one) tablet by mouth every 12 hours Reasons: Manic-Depression Active levothyroxine (Synthroid) 25 MCG tabletIndicati ons:Hypothyroi dism Take 1 (one) tablet by mouth daily before breakfast Reasons: Underactive Thyroid Active vitamin D3 (Cholecalcifer ol) 25 MCG (1000 UNITS) tabletIndicati ons:Vitamin D Deficiency Take 2 (two) tablets by mouth once daily Reasons: Vitamin D Deficiency Active rosuvastatin (Crestor) 20 MG tablet Take 1 (one) tablet by mouth once daily for 30 days 30 tablet 07/30/19 25 Active Active Problems Problem Noted Date Diagnosed Date Nausea and vomiting, unspecified vomiting type 0 07/27/2024 Anxiety states 07/27/2024 Alcohol withdrawal syndrome without complication 07/27/2024 Alcohol dependence with unsp ecified alcohol-induced disorder 07/27/2024 Social History Tobacco Use Types Packs/Day Years Used Date Smoking Tobacco: Never Assessed Sex and Gender Information Value Date Recorded Sex Assigned at Not on file Legal Sex Male 4:03 PM [employer] Gender Identity Not on file Sexual Orientation Not on file Last Filed Vital Signs Vital Sign Reading Time Taken Comments Blood Pressure 143/86 07/29/2024 8:37 AM [employer] Pulse 76 07/29/2024 8:37 AM [employer] Temperature 36.2 C (97.2 F) 07/29/2024 8:37 AM [employer] Respiratory Rate 16 07/29/2024 8:37 AM [employer] Oxygen Saturation 96% 07/29/2024 8:37 AM [employer] Inhaled Oxygen Concentration - - Weight 89.2 kg (196 lb 11.2 oz) 07/27/2024 9:02 PM [employer] Height 177.8 cm (5' 10) 07/27/2024 9:02 PM [employer] Body Mass Index 28.22 07/27/2024 9:02 PM [employer] Plan of Treatment Health Maintenance Due Date Last Done Comments COLOGUARD (AGES 45-75) - COL ON CA SCREENING 1967 COLON MONITORING 1967 COLONOSCOPY - COLON CA SCREENING 1967 CT COLONOGRAPHY - COLON CA SCREENING 1967 Colorectal Cancer Screening 1967 FIT - COLON CA SCREENING 1967 FLEX SIG - COLON CA SCREENING 1967 LIPID TESTING 1967 HIV SCREENING 12/21/1982 HEPATITIS C SCREENING 12/17/1985 DTAP/TDAP/TD VACCINES (1 - Tdap) 12/21/1986 HEPATITIS B VACCINE (1 of 3 - 19+ 3-dose series) 12/21/1986 PNEUMOCOCCAL VACCINE 50+ (1 of 2 - PCV) 12/21/1986 ZOSTER VACCINE (1 of 2) 12/21/2017 COVID-19 VACCINE (2023-2 5 season) 2024 DEPRESSION SCREENING 07/11/2024 INFLUENZA VACCINE (#1) 2025 HIB VACCINE Aged Out No longer eligi ble based on patient's age to complete this topic HPV VACCINE Aged Out No longer eligi ble based on patient's age to complete this topic MENINGOCOCCAL (Group B) VACC INE SHARED DECISION-MAKING Aged Out No longer eligibl e based on patient's age to complete this topic MENINGOCOCCAL GROUPS A/C/Y/W VACCINE Aged Out No longer eligible b ased on patient's age to complete this topic Insurance [facility] Address: [facility] [address] [place] [address] Advance Directives * Full Code (Latest Code Status on File) Date Activated Date Inactivated Comments 07/27/2024 9:19 PM 07/29/2024 12:50 PM Care Teams Heel Gummer Relationship Specialty Start Date End Date None, Physician PCP - General 07/27/24
--- OUTSIDE RECORDS SUMMARY | 2025-03-17 22:56 | XMS_ITS | Clinical Summary ---
Author Organization [facility] Address [address] [place] [address] Phone Care Team Providers Care Garment Supervisor Name Role Phone Kartik Mariee MD Primary Care Provider [phone] Medications lithium (ESKALITH) 450 MG Tablet Controlled Release Take 450 mg by mouth 2 times daily. Active ergocalciferol (Drisdol) 62814 UNIT Capsule Take 50,000 Units by mouth [...] this topic Insurance MEDICAID [place] MEDICARE C [facility] Care Teams Garment Supervisor Relationship Specialty Start Date End Date Kartik Mariee MD PCP - General Internal Medicine 09/22/23
--- NOTE | 2025-03-18 00:50 | ED_ITS ---
HPI - Chest Pain General Chief Complaint: Chest Pain Stated Complaint: Chest pain, pancreatitis Time Seen by Provider: 03/17/25 22:32 History of Present Illness HPI narrative: Patient is a 59-year-old male who presents emergency department this evening complaining of chest pain for the past 8 hours. Patient is also complaining of shortness of breath for the past 9 hours and is concerned that he has a flare-up of his pancreatitis from drinking. States that his last drink was approximately 5 hours ago. He is agitated during assessment, rude and uncooperative. Related Data Home Medications ?Medication ?Instructions ?Recorded ?Confirmed ?Last Taken ?Type amitriptyline 100 mg tablet 100 mg PO BID 04/14/23 Un known History glimepiride 4 mg tablet 4 mg PO BID 04/14/23 Unknow n History icosapent ethyl 1 gram capsule 2 g PO BID 04/14/23 Un known History levothyroxine 75 mcg tablet 75 mcg PO DAILY 04/14/23 Unknown History lithium carbonate 450 mg 450 mg PO BID 04/14/23 Unkn own History tablet,extended release metformin 500 mg tablet,extended 500 mg PO BID 3 Unknown History release 24 hr metoprolol succinate 100 mg 100 mg PO DAILY 04/14/23 Unknown History tablet,extended release 24 hr naltrexone microspheres 380 mg 380 mg IM MONTHLY 04/14 Unknown History intramuscular suspension,extended release (Vivitrol) omeprazole 40 mg capsule,delayed 40 mg PO DAILY Unknown History release Allergies Allergy/AdvReac Type Severity Reaction Status Date / Time No Known Allergies Allergy Verified 03/17/25 21:29 Review of Systems 2 Review of Systems: All systems are reviewed and are negative unless stated otherwise in the HPI. [facility] Past Medical History Medical History Hx of pancreatitis Dietary counseling and surveillance History of ETOH abuse Hyperlipidemia Hypertension Type 2 diabetes mellitus Family History Family History Father Alcoholism Heart disease Mother Heart disease Nerve disorder Sibling Alcoholism Grandparent Alcoholism Social History Social History Smoking status: Never smoker Alcohol intake: current Drinks per week: 7 Substance use: never Exam 2 Narrative: General: Alert, awake, afebrile, in no acute distress. HEENT: PERRL, no rhinorrhea, no post nasal drip, oropharynx clear. Neck: Trachea midline, no JVD, no lymphadenopathy. Cardiovascular: Regular rate and rhythm, no murmurs, rubs or gallops, no peripheral edema. Respiratory: Clear to auscultation bilaterally, no tachypnea, no wheezing, no rhonchi, no rubs, no respiratory distress. Abdomen: Soft, nontender, nondistended, no rebound, no guarding, no peritoneal signs. Musculoskeletal: No joint swelling or deformity, normal muscle tone. Skin: No rashes or petechia, no signs of infection. Psychiatric: Alert and oriented, normal behavior and judgment for situation. Neurological: Alert and oriented to person, place, and time. Follows all commands. No focal deficits, speech is clear and fluent. Course Vital Signs Vital signs: Vital Signs Temperature 98.5 F 03/17/25 21:23 Pulse Rate 128 H 03/17/25 21:23 Respiratory Rate 22 H 03/17/25 21:23 Blood Pressure 146/93 H 03/17/25 21:23 Pulse Oximetry 95 03/17/25 21:23 Oxygen Delivery Room Air 03/17/25 21:23 Temperature 98.5 F 03/17/25 21:23 Pulse Rate 116 H 03/17/25 22:56 Respiratory Rate 20 03/17/25 22:56 Blood Pressure 156/94 H 03/17/25 22:56 Pulse Oximetry 97 03/17/25 22:56 Oxygen Delivery Room Air 03/17/25 22:56 MDM - Chest Pain MDM Narrative Medical decision making narrative: The patient was evaluated by myself in the emergency department. History is obtained from patient who is an independent historian and physical exam was performed. External medical records were reviewed at this time. IV was established and pertinent tests were ordered. Patient was administered 2 L IV fluid bolus with normal saline. EKG was obtained which revealed sinus tachycardia rate of 121 beats per minute, no evidence of acute ischemia. EKG was independently interpreted by me and is currently pending official cardiology read. Laboratory results obtained revealing Her a leukocytosis of 13, anion gap metabolic acidosis with a gap of 26, bicarb of 14, lactic acidosis of 5, total bili 1.7, AST 95, ALT 59 otherwise unremarkable. Blood alcohol level to 209. Despite his alcohol level, patient does appear to be clinically sober. Per chart review, patient sits in the 200s chronically. Imaging studies obtained included CT angio chest PE protocol and CT abdomen pelvis with IV contrast which was independently interpreted by me revealing no acute process although exam is somewhat limited secondary to motion artifact, which is pending final radiology interpretation. Differential diagnosis considerations include acute pancreatitis, alcohol intoxication, dehydration, electrolyte derangements, acute viral syndrome. Comorbidities impacting this visit include history of alcohol abuse and alcohol intoxication. I have evaluated and discussed social determinants of health with the patient that could potentially impact subsequent diagnosis and treatment plans. At this time, patient is requesting to be discharged against medical advice. He was informed that his medical workup is not complete. Patient states that he understands that and no longer wants any further workup. Patient is being verbally and physically aggressive toward staff, throwing things at the RN and tech. is present with the patient at bedside and feels comfortable taking the patient home. Patient was discharged home AMA to the care of his . Lab Data 03/17/25 21:36 03/17/25 21:36 Labs: Lab Results 03/17/25 03/17/25 Range/Units 21:36 22:47 WBC 13.0 H (4.5-10.0) K/mm3 RBC 4.24 L (4.6-6.20) M/mm3 Hgb 14.3 (14.0-18.0) g/dL Hct 42.0 (42.0-52.0) % MCV 99.1 (80-100) fl MCH 33.7 (26-34) pg MCHC 34.0 (32-36) g/dl RDW 13.4 (11.5-14.5) % Plt Count 212 (150-375) k/mm3 MPV 9.8 (7.4-10.4) fl Immature Gran % (Auto) 0.4 (0-0.5) % Neut % (Auto) 83.4 H (45.5-73.1) % Lymph % (Auto) 7.5 L (18.3-44.2) % [place] % (Auto) 7.5 (2.6-8.5) % Eos % (Auto) 0.6 (0-4.4) % Baso % (Auto) 0.6 (0.2-1.2) % Lymph # (Auto) 0.97 (0.9-3.2) K/mm3 [place] # (Auto) 1.0 H (0.1-0.6) K/mm3 Eos # (Auto) 0.1 (0-0.3) K/mm3 Baso # (Auto) 0.1 (0.0-0.1) K/mm3 Abs Immat Gran (auto) 0.05 H (0.00-0.031) K/mm3 Absolute Neuts (auto) 10.8 H (1.3-6.7) K/mm3 Absolute Nucleated RBC 0.000 (0.0-0.012) K/mm3 Nucleated RBC % 0.0 (0.0-0.2) % PT 12.7 (11.1-14.7) Seconds INR 1.0 APTT 22.3 (22.3-36.8) Seconds Sodium 138 (137-145) mmol/L Potassium 3.9 (3.4-5.0) mmol/L Chloride 98 (98-107) mmol/L Carbon Dioxide 14 L (22-30) mmol/L Anion Gap 26 H (4-12) mmol/L BUN 8 L D (9-20) mg/dL Creatinine 0.75 (0.7-1.3) mg/dL Estim Creat Clear Calc 97 ml/min Estimated GFR > 60 (59 - ) Glucose 133 H (65-110) mg/dL Lactic Acid 5.0 H* (0.7-2.0) mmol/L Calcium 9.5 (8.4-10.2) mg/dL Magnesium 1.7 (1.6-2.3) mg/dL Total Bilirubin 1.7 H (0.2-1.3) mg/dL AST 95 H (17-59) U/L ALT 59 H (6-50) U/L Alkaline Phosphatase 85 (38-126) U/L Troponin I < 0.012 (0.000-0.034) ng/mL Total Protein 8.4 H (6.3-8.2) g/dL Albumin 5.3 H (3.5-5.1) g/dL Lipase 80 (23-300) U/L Ethyl Alcohol 209 (<10) mg/dL Discharge Plan Discharge Clinical Impression: Alcohol intoxication, Metabolic acidosis, increased anion gap, Acidosis, lactic, Chest pain, Sepsis Patient Disposition: Left Against Medical Advice Condition: Serious Patient Language: Kenyan Prescriptions: No Action metformin [Glucophage XR] 500 mg tablet extended release 24 hr 500 mg PO BID 30 Days Qty: 60 0RF glimepiride 4 mg tablet 4 mg PO BID 30 Days Qty: 60 0RF albuterol sulfate 90 mcg/actuation HFA aerosol inhaler 2 puff inhalation QID PRN (Reason: shortness of breath or wheezing) Qty: 6.7 0RF (DME) Aerochamber MV Spacer See Rx Instructions .Route Qty: 1 0RF Rx Instructions: As directed icosapent ethyl 1 gram capsule 2 g PO BID Rx Instructions: Take 2 caps in the AM and 2 caps in the PM metformin 500 mg tablet extended release 24 hr 500 mg PO BID glimepiride 4 mg tablet 4 mg PO BID Rx Instructions: administer with breakfast and at dinner metoprolol succinate 100 mg tablet extended release 24 hr 100 mg PO DAILY levothyroxine 75 mcg tablet 75 mcg PO DAILY omeprazole 40 mg capsule,delayed release(DR/EC) 40 mg PO DAILY amitriptyline 100 mg tablet 100 mg PO BID Rx Instructions: take one tab in AM take one tab at hs lithium carbonate 450 mg tablet extended release 450 mg PO BID Rx Instructions: Take one tab AM Take one tab PM Vivitrol 380 mg suspension,extended rel recon 380 mg IM MONTHLY Rx Instructions: for alcoholism mecobalamin (vitamin B12) 1,000 mcg tablet,chewable 2,000 mcg PO DAILY Qty: 360 2RF cholecalciferol (vitamin D3) 1,250 mcg (50,000 unit) capsule 1,250 mcg PO WEEKLY Qty: 8 0RF fenofibrate 54 mg tablet 54 mg PO DAILY Qty: 90 0RF atorvastatin 40 mg tablet See Rx Instructions .ROUTE .COMPLEX Qty: 90 0RF Dose Instruction: TAKE 1 TABLET BY MOUTH EVERY DAY Rx Instructions: TAKE 1 TABLET BY MOUTH EVERY DAY Sutab 1.479-0.188- 0.225 gram tablet See Rx Instructions PO PER PKG DIR Qty: 24 0RF Rx Instructions: PO PER PKG DIR Follow-up/Referrals: Jeffrey,MD Garrett [Primary Care Provider, Unknown] Time of Disposition: 00:54
--- NOTE | 2025-03-18 00:53 | PC.NURSE ---
When attempting to obtain pts 3 hour trop, pt became aggressive with staff stating You ain't drawing anymore fucking blood from me. Pt then demanded to have his IV removed so he could leave. KARSTEN Rider notified and attempted to inform patient that he needed to stay to wait for results. Pt continued to be verbally agressive with staff and demanding for IV to be removed. KARSTEN Rider approved for pt to sign AMA paperwork. This RN removed pts IV with catheter tip intact. Pt states I know you guys have had critical patients but I have pancreatitis. You know you can from that? I guess that doesn't fucking matter. This RN informed pt that we have not proven for him to have pancreatitis as we are still waiting for results therefore, we can not treat him for it yet. Pt then took off his hospital gown and threw it at [facility]. This RN asked for patient sign AMA paperwork. Pt refused saying Does it fucking matter? I'm not signing shit and I will be filing a grievance. This RN and Charlee then exited the room and notified security of pts aggressiveness. Pt then was escorted to ED exit with steady gait and no visible signs for concern at this time.
== END 2025-03-18 00:55 | disposition left against medical advice (07) ==
PROVIDERS: Emergency Provider Emergency Medicine; PCP Family Medicine
DX: A41.9 Sepsis, unspecified organism (principal); E87.20 Acidosis, unspecified; R07.9 Chest pain, unspecified; F10.129 Alcohol abuse with intoxication, unspecified; Y90.7 Blood alcohol level of 200-239 mg/100 ml; I10 Essential (primary) hypertension; E78.5 Hyperlipidemia, unspecified; E11.9 Type 2 diabetes mellitus without complications; Z79.84 Long term (current) use of oral hypoglycemic drugs; Z79.899 Other long term (current) drug therapy; R00.0 Tachycardia, unspecified; R94.31 Abnormal electrocardiogram [ECG] [EKG]
CPT/HCPCS: 36415; 71046; 71275; 74177; 80053; 82077; 83605; 83690; 83735; 84484; 85025; 85610; 85730; 93005; 96360; 99284; J7030; Q9967

== ENCOUNTER 2025-05-10 00:43 | Emergency (ER) | payer MEDICARE, MEDICAID, SELFPAY ==
--- OUTSIDE RECORDS SUMMARY | 2010-06-03 09:45 | XMS_ITS | Continuity of Care Document ---
Author Organization [facility] Address [address] [place] [address] Phone Care Team Providers Care Rail Gang Supervisor Name Role Phone Morgan OD, Navarro Unavailable Unavailable Procedures Procedure Date Eye Exam & Treatment Refraction Advance Directives Directive Yes / No Effective Date File Name No Information Encounters Encounter Description Practice Location Reason(s) For Visit Diagnoses Date Provider Providers Copied on Encounter [facility], [address], [place], [place], [id number], [place] tel:[phone] [facility] [place] [facility] [place] No Information [phone] Morgan OD Navarro. [address] [facility] , [address], [place], [address], [place]. tel:[phone] Family History Family Member Type Diagnosis Age At Onset No Information Payers Payer name Insurance type Covered democrat ID Authoriza tion(s) P [id number] Social History Type Description Quantity Date Captured [...]
[2025-05-10 00:43] VITALS: BP 145/90; PULSE 107; RESP 20; O2SAT 98
--- NOTE | 2025-05-10 00:56 | ED.ALCOHOL ---
HPI - Alcohol General Chief Complaint: Alcohol Stated Complaint: etoh Time Seen by Provider: 05/10/25 00:45 History of Present Illness HPI narrative: 59-year-old male with history of alcohol abuse presenting to the emergency department today with alcohol intoxication. Patient was drinking over a praful and a half of vodka per the patient. states he drinks every day. Called EMS as he did not want to has had frequent presentations to this emergency department for alcohol intoxication. Most recently last month. Patient denies any traumatic injuries. States his brother today and he is sad about this but denies any suicidal or homicidal thoughts. Adamantly denies any thoughts of harming himself. states he see somebody for substance abuse or monthly to try and help for his addiction. No medical complaints at this time. No traumatic injuries. Related Data Home Medications ?Medication ?Instructions ?Recorded ?Confirmed ?Last Taken ?Type amitriptyline 100 mg tablet 100 mg PO BID 04/14/23 04/16/25 Unknown History glimepiride 4 mg tablet 4 mg PO BID 04/14/23 04/16/25 04/15/25 History icosapent ethyl 1 gram capsule 2 g PO BID 04/14/23 04/16/25 Unknown History levothyroxine 75 mcg tablet 75 mcg PO DAILY 04/14/23 04/16/25 Unknown History metformin 500 mg tablet,extended 500 mg PO BID 04/14/23 04/16/25 Unknown History release 24 hr metoprolol succinate 100 mg 100 mg PO DAILY 04/14/23 04/16/25 Unknown History tablet,extended release 24 hr omeprazole 40 mg capsule,delayed 40 mg PO DAILY 04/14/23 04/16/25 Unknown History release Vitamin D3 04/16/25 Unknown History aspirin 81 mg tablet,delayed 81 mg PO DAILY 04/16/25 04/16/25 Unknown History release (Adult Aspirin Regimen) citalopram 30 mg capsule 30 mg PO HS 04/16/25 04/16/25 Unknown History dapagliflozin propanediol 10 mg 10 mg PO DAILY 04/16/25 04/16/25 Unknown History tablet (Farxiga) diazepam 2 mg tablet 4 mg PO BID PRN anxiety 04/16/25 04/16/25 Unknown History glimepiride 4 mg tablet 2 mg PO BID 04/16/25 04/16/25 Unknown History lithium carbonate 300 mg 300 mg PO DIRECTED 04/16/25 04/16/25 Unknown History tablet,extended release mecobalamin (vitamin B12) 1,000 1,000 mcg PO DAILY 04/16/25 04/16/25 Unknown History mcg chewable tablet naltrexone 50 mg tablet 50 mg PO DAILY 04/16/25 04/16/25 Unknown History rosuvastatin 20 mg tablet 40 mg PO HS 04/16/25 04/16/25 Unknown History sodium sul 1.479 gram-potas ch 1 tablet PO DIRECTED 04/16/25 04/16/25 Unknown History 0.188 gram-magnes sul 0.225 gram tablet (Sutab) Allergies Allergy/AdvReac Type Severity Reaction Status Date / Time No Known Allergies Allergy Verified 04/16/25 13:03 Review of Systems Review of Systems: As reviewed above in HPI All systems reviewed & are unremarkable except as noted in HPI and below PMFSH Past Medical History Medical History Hx of pancreatitis Dietary counseling and surveillance History of ETOH abuse Hyperlipidemia Hypertension Type 2 diabetes mellitus Family History Family History Father Alcoholism Heart disease Mother Heart disease Nerve disorder Sibling Alcoholism Grandparent Alcoholism Social History Social History Smoking status: Never smoker Alcohol intake: current Drinks per week: 7 Alcohol use details: 2-3 beers a day Substance use: never Living arrangements: alone Spiritual care concerns: No Exam Narrative: GENERAL: very intoxicated appearance, answering questions appropriately but very tearful. HEAD: [Normocephalic, atraumatic.] EYES: [PERRLA and EOMI.] ENT: Nares clear, no rhinorrhea or epistaxis. Mucous membranes moist. NECK: Supple. CHEST: [Clear to auscultation. No respiratory distress.] HEART: [Regular rate and rhythm]. No murmur heard. [Normal peripheral pulses.] ABDOMEN: [Soft, nondistended], [nontender], [No rigidity or guarding] EXTREMITIES: Normal range of motion. [No edema.] SKIN: Warm, dry, no rash. NEURO: [No focal deficits]. Alert and oriented [x3.] PSYCH: Tearful but denies suicidal thoughts or ideations. Course Vital Signs Vital signs: Vital Signs Pulse Rate 107 H 05/10/25 00:43 Respiratory Rate 20 05/10/25 00:43 Blood Pressure 145/90 H 05/10/25 00:43 Pulse Oximetry 98 05/10/25 00:43 Oxygen Delivery Room Air 05/10/25 00:43 Pulse Rate 96 05/10/25 05:06 Respiratory Rate 16 05/10/25 05:06 Blood Pressure 138/79 05/10/25 05:06 Pulse Oximetry 94 05/10/25 05:06 Oxygen Delivery Room Air 05/10/25 00:43 MDM - Alcohol MDM Narrative Medical decision making narrative: 59-year-old male with history of alcohol abuse presenting to the emergency department today with alcohol intoxication. Patient was drinking over a praful and a half of vodka per the patient. states he drinks every day. Called EMS as he did not want to has had frequent presentations to this emergency department for alcohol intoxication. Most recently last month. Patient denies any traumatic injuries. States his brother today and he is sad about this but denies any suicidal or homicidal thoughts. Adamantly denies any thoughts of harming himself. states he see somebody for substance abuse or monthly to try and help for his addiction. No medical complaints at this time. No traumatic injuries. Mildly tachycardic but otherwise stable vital signs. Patient is very intoxicated admits to drinking significant alcohol today. No signs of traumatic injury. He is awake and answering questions appropriately albeit intoxicated. Alcohol level obtained as well as basic laboratory studies. Given dextrose containing fluids for rehydration. Point of care glucose unremarkable. Thiamine and additional L of fluid ordered. Patient placed on lunchroom monitor and re-evaluated. Patient already eloped once and was brought back by PD. Patient aggressive and verbally and physically getting into altercations with staff. At this time he has no emergent medical conditions and is sober enough to be discharged. He is able to ambulate without difficulty, in speaking with clear sentences, remains belligerent and aggressive. For staff safety [place] police department was contacted to remove patient from the premises. Medical Records Attestation: I reviewed the patient's medical records. Lab Data Attestation: I reviewed the patient's lab results. 05/10/25 01:16 05/10/25 01:16 Labs: Lab Results 05/10/25 05/10/25 05/10/25 Range/Units 00:51 01:16 03:58 WBC 3.8 L (4.5-10.0) K/mm3 RBC 3.60 L (4.6-6.20) M/mm3 Hgb 11.9 L (14.0-18.0) g/dL Hct 35.6 L (42.0-52.0) % MCV 98.9 (80-100) fl MCH 33.1 (26-34) pg MCHC 33.4 (32-36) g/dl RDW 13.2 (11.5-14.5) % Plt Count 145 L (150-375) k/mm3 MPV 9.0 (7.4-10.4) fl Immature Gran % (Auto) 0.5 (0-0.5) % Neut % (Auto) 53.3 (45.5-73.1) % Lymph % (Auto) 29.2 (18.3-44.2) % [place] % (Auto) 12.5 H (2.6-8.5) % Eos % (Auto) 3.4 (0-4.4) % Baso % (Auto) 1.1 (0.2-1.2) % Lymph # (Auto) 1.10 (0.9-3.2) K/mm3 [place] # (Auto) 0.5 (0.1-0.6) K/mm3 Eos # (Auto) 0.1 (0-0.3) K/mm3 Baso # (Auto) 0.0 (0.0-0.1) K/mm3 Abs Immat Gran (auto) 0.02 (0.00-0.031) K/mm3 Absolute Neuts (auto) 2.0 (1.3-6.7) K/mm3 Absolute Nucleated RBC 0.000 (0.0-0.012) K/mm3 Nucleated RBC % 0.0 (0.0-0.2) % Sodium 141 (137-145) mmol/L Potassium 4.2 (3.4-5.0) mmol/L Chloride 105 (98-107) mmol/L Carbon Dioxide 26 (22-30) mmol/L Anion Gap 10 (4-12) mmol/L BUN 13 D (9-20) mg/dL Creatinine 0.85 (0.7-1.3) mg/dL Estim Creat Clear Calc Not Reportable Estimated GFR > 60 (59 - ) Glucose 128 H (65-110) mg/dL POC Capillary Glucose 149 H 214 H (65-105) mg/dl Calcium 8.3 L (8.4-10.2) mg/dL Total Bilirubin 0.5 (0.2-1.3) mg/dL AST 42 (17-59) U/L ALT 30 (6-50) U/L Alkaline Phosphatase 72 (38-126) U/L Total Protein 6.4 (6.3-8.2) g/dL Albumin 4.0 (3.5-5.1) g/dL TSH (Reflex) 4.820 H (0.465-4.68) uIU/mL Free T4 1.02 (0.78-2.19) ng/dL Total T3 Pending Urine Color (Yellow) Urine Appearance (Clear) Urine pH (5.0-9.0) Ur Specific [place] (1.001-1.035) Urine Protein (Negative) mg/dL Urine Glucose (UA) (Negative) mg/dL Urine Ketones (Negative) mg/dL Ur Blood (Man) (Negative) Urine Nitrate (Negative) Urine Bilirubin (Negative) Urine Urobilinogen (<2.0) mg/dL Leukocyte Esterase Rfl (Negative) RUIZ/UL Urine Opiates Screen Urine Methadone Screen Ur Barbiturates Screen Ur Phencyclidine Scrn Ur Amphetamine Screen U Benzodiazepines Scrn Urine Cocaine Screen U Cannabinoids Screen Ethyl Alcohol 352 H* (<10) mg/dL SARS-CoV-2 RNA (RT-PCR) 05/10/25 05/10/25 Range/Units 06:07 06:21 WBC (4.5-10.0) K/mm3 RBC (4.6-6.20) M/mm3 Hgb (14.0-18.0) g/dL Hct (42.0-52.0) % MCV (80-100) fl MCH (26-34) pg MCHC (32-36) g/dl RDW (11.5-14.5) % Plt Count (150-375) k/mm3 MPV (7.4-10.4) fl Immature Gran % (Auto) (0-0.5) % Neut % (Auto) (45.5-73.1) % Lymph % (Auto) (18.3-44.2) % [place] % (Auto) (2.6-8.5) % Eos % (Auto) (0-4.4) % Baso % (Auto) (0.2-1.2) % Lymph # (Auto) (0.9-3.2) K/mm3 [place] # (Auto) (0.1-0.6) K/mm3 Eos # (Auto) (0-0.3) K/mm3 Baso # (Auto) (0.0-0.1) K/mm3 Abs Immat Gran (auto) (0.00-0.031) K/mm3 Absolute Neuts (auto) (1.3-6.7) K/mm3 Absolute Nucleated RBC (0.0-0.012) K/mm3 Nucleated RBC % (0.0-0.2) % Sodium (137-145) mmol/L Potassium (3.4-5.0) mmol/L Chloride (98-107) mmol/L Carbon Dioxide (22-30) mmol/L Anion Gap (4-12) mmol/L BUN (9-20) mg/dL Creatinine (0.7-1.3) mg/dL Estim Creat Clear Calc Estimated GFR (59 - ) Glucose (65-110) mg/dL POC Capillary Glucose (65-105) mg/dl Calcium (8.4-10.2) mg/dL Total Bilirubin (0.2-1.3) mg/dL AST (17-59) U/L ALT (6-50) U/L Alkaline Phosphatase (38-126) U/L Total Protein (6.3-8.2) g/dL Albumin (3.5-5.1) g/dL TSH (Reflex) (0.465-4.68) uIU/mL Free T4 (0.78-2.19) ng/dL Total T3 Urine Color Yellow (Yellow) Urine Appearance Clear (Clear) Urine pH 6.0 (5.0-9.0) Ur Specific [place] 1.009 (1.001-1.035) Urine Protein Negative (Negative) mg/dL Urine Glucose (UA) 1+ H (Negative) mg/dL Urine Ketones Negative (Negative) mg/dL Ur Blood (Man) Negative (Negative) Urine Nitrate Negative (Negative) Urine Bilirubin Negative (Negative) Urine Urobilinogen 0.2 (<2.0) mg/dL Leukocyte Esterase Rfl Negative (Negative) RUIZ/UL Urine Opiates Screen Pending Urine Methadone Screen Pending Ur Barbiturates Screen Pending Ur Phencyclidine Scrn Pending Ur Amphetamine Screen Pending U Benzodiazepines Scrn Pending Urine Cocaine Screen Pending U Cannabinoids Screen Pending Ethyl Alcohol (<10) mg/dL SARS-CoV-2 RNA (RT-PCR) Pending Discharge Plan Discharge Clinical Impression: Alcohol abuse, Aggressive behavior Patient Disposition: Home Condition: Stable Instructions: Antibiotic Form Additional Instructions: Return with emergent concerns. Patient Language: Japanese Prescriptions: No Action metformin [Glucophage XR] 500 mg tablet extended release 24 hr 500 mg PO BID 30 Days Qty: 60 0RF icosapent ethyl 1 gram capsule 2 g PO BID Rx Instructions: Take 2 caps in the AM and 2 caps in the PM metformin 500 mg tablet extended release 24 hr 500 mg PO BID glimepiride 4 mg tablet 4 mg PO BID Rx Instructions: administer with breakfast and at dinner metoprolol succinate 100 mg tablet extended release 24 hr 100 mg PO DAILY levothyroxine 75 mcg tablet 75 mcg PO DAILY omeprazole 40 mg capsule,delayed release(DR/EC) 40 mg PO DAILY amitriptyline 100 mg tablet 100 mg PO BID Rx Instructions: take one tab in AM take one tab at hs rosuvastatin 20 mg tablet 40 mg PO HS lithium carbonate 300 mg tablet extended release 300 mg PO DIRECTED Patient Comments: one in morning, two tablets at bedtime naltrexone 50 mg tablet 50 mg PO DAILY citalopram 30 mg capsule 30 mg PO HS dapagliflozin propanediol [Farxiga] 10 mg tablet 10 mg PO DAILY diazepam 2 mg tablet 4 mg PO BID PRN (Reason: anxiety) Vitamin D3 Rx Instructions: 1 pill daily aspirin [Adult Aspirin Regimen] 81 mg tablet,delayed release (DR/EC) 81 mg PO DAILY glimepiride 4 mg tablet 2 mg PO BID mecobalamin (vitamin B12) 1,000 mcg tablet,chewable 1,000 mcg PO DAILY Sutab 1.479-0.188- 0.225 gram tablet 1 tablet PO DIRECTED cholecalciferol (vitamin D3) 1,250 mcg (50,000 unit) capsule 1,250 mcg PO WEEKLY Qty: 8 0RF Patient Comments: mondays Follow-up/Referrals: Jeffrey,MD Garrett [Primary Care Provider, Unknown] Time of Disposition: 06:53
--- OUTSIDE RECORDS SUMMARY | 2025-05-10 00:57 | XMS_ITS | Clinical Summary ---
Author Organization [facility] Address [address] [place] [address] Phone Care Team Providers Care Charge Loader Name Role Phone Kartik Mariee MD Primary Care Provider [phone] Medications lithium (ESKALITH) 450 MG Tablet Controlled Release Take 450 mg by mouth 2 times daily. Active ergocalciferol (Drisdol) 91686 UNIT Capsule Take 50,000 Units by mouth [...] 1 - PCV) 12/21/2017 PSA Discussion 12/21/2022 Medicare Initial AWV [id number] 07/11/2024 Influenza Immunization (#1) 03/11/202504/10, 05/07/2021, 04/08/2020, Additional history exists SARS-COV-2 Immunization (2024- season) 2025 09/21/2022, 10/13/2021, 04/04/2021, Additional history [...] this topic Insurance MEDICAID [place] MEDICARE C [employer] Care Teams Charge Loader Relationship Specialty Start Date End Date Kartik Mariee MD PCP - General Internal Medicine 09/22/23
--- OUTSIDE RECORDS SUMMARY | 2025-05-10 00:57 | XMS_ITS | Clinical Summary ---
Author Organization [facility] Address [address] [place] [address] Care Team Providers Care Senior Premium Auditor Name Role Phone None, Physician Primary Care Provider Unavailabl e Source Comments [facility],non-owned Affiliates and Associated Physician Practices is amultiple site organization consisting of ambulatory clinics and hospital sitesin [place], [place], [place] and [place]. This disclosure is being madepursuant to the Care Everywhere program and may not contain all information available regarding this patient. Last updated 18.[employer] Allergies No known active allergies Medications * [...] on file Legal Sex Male 4:03 PM OUTSOLE BEVELER Gender Identity Not on file Sexual Orientation Not on file Last Filed Vital Signs Vital Sign Reading Time Taken Comments Blood Pressure 143/86 07/29/2024 8:37 AM OUTSOLE BEVELER Pulse 76 07/29/2024 8:37 AM OUTSOLE BEVELER Temperature 36.2 C (97.2 F) 07/29/2024 8:37 AM OUTSOLE BEVELER Respiratory Rate 16 07/29/2024 8:37 AM OUTSOLE BEVELER Oxygen Saturation 96% 07/29/2024 8:37 AM OUTSOLE BEVELER Inhaled Oxygen Concentration - - Weight 89.2 kg (196 lb 11.2 oz) 07/27/2024 9:02 PM OUTSOLE BEVELER Height 177.8 cm (5' 10) 07/27/2024 9:02 PM OUTSOLE BEVELER Body Mass Index 28.22 07/27/2024 9:02 PM OUTSOLE BEVELER Plan of Treatment Health Maintenance Due Date [...] 12/21/1986 ZOSTER VACCINE (1 of 2) 12/21/2017 DEPRESSION SCREENING 07/11/2024 COVID-19 VACCINE ( - 2023-2 5 season) 2025 INFLUENZA VACCINE (#1) 2025 HIB VACCINE Aged [...] patient's age to complete this topic Insurance [facility] Address: [facility] [id number] [place] [address] Advance Directives * Full Code (Latest Code Status on File) Date Activated Date Inactivated Comments 07/27/2024 9:19 PM 07/29/2024 12:50 PM Care Teams Senior Premium Auditor Relationship Specialty Start Date End Date None, Physician PCP - General 07/27/24
[2025-05-10] MEDS: DEXTROSE 5%/LACTATED RINGERS 1,000 ML 1000 ML IV CONT (01:09)
[2025-05-10] MEDS: THIAMINE HCL 200 MG/2 ML VIAL 100 MG IV PUSH (01:09)
[2025-05-10] MEDS: LACTATED RINGERS 1,000 ML 999 ML IV CONT (01:09)
[2025-05-10 03:38] LABS: Hematocrit 35.6 % (42.0-52.0); Hemoglobin 11.9 g/dL (14.0-18.0); Immature Granulocyte Percent A 0.5 % (0-0.5); Lymphocytes Absolute Auto 1.10 K/mm3 (0.9-3.2); Mean Corpuscular HGB Conc 33.4 g/dl (32-36); Mean Corpuscular Hemoglobin 33.1 pg (26-34); Mean Corpuscular Volume 98.9 fl (80-100); Nucleated Red Blood Cells Absolute Auto 0.000 K/mm3 (0.0-0.012); Nucleated Red Blood Cells Perc 0.0 % (0.0-0.2); Platelet Count Result 145 k/mm3 (150-375); Red Blood Count 3.60 M/mm3 (4.6-6.20); White Blood Count 3.8 K/mm3 (4.5-10.0)
[2025-05-10 03:43] LABS: Alanine Aminotransferase 30 U/L (6-50); Albumin Level 4.0 g/dL (3.5-5.1); Alkaline Phosphatase 72 U/L (38-126); Anion Gap 10 mmol/L (4-12); Aspartate Amino Transferase 42 U/L (17-59); Bilirubin,Total 0.5 mg/dL (0.2-1.3); Blood Urea Nitrogen 13 mg/dL (9-20); Calcium 8.3 mg/dL (8.4-10.2); Carbon Dioxide 26 mmol/L (22-30); Chloride 105 mmol/L (98-107); Estimated Glomerular Filt Rate > 60; Glucose 128 mg/dL (65-110); Potassium 4.2 mmol/L (3.4-5.0); Sodium 141 mmol/L (137-145); Total Protein 6.4 g/dL (6.3-8.2)
[2025-05-10 03:44] LABS: Thyroid Stimulating Hormone Reflex 4.820 uIU/mL (0.465-4.68)
[2025-05-10 05:06] VITALS: BP 138/79; PULSE 96; RESP 16; O2SAT 94
[2025-05-10 06:30] LABS: Add Urine Microscopic? NO; Appearance Urine Clear (Clear); Glucose Urine UA 1+ mg/dL (Negative); Leukocyte Esterase Ur Negative LEU/UL (Negative); Nitrate Urine Negative (Negative); Specific Grav Ur 1.009 (1.001-1.035)
[2025-05-10 06:39] LABS: Free T4 Free Thyroxine Reflex 1.02 ng/dL (0.78-2.19)
[2025-05-10 06:54] LABS: SARS-CoV-2 RNA PCR Negative (Negative)
[2025-05-10 07:20] LABS: Cannabinoid Screen Urine Negative (Negative)
[2025-05-10 11:00] LABS: Total Triiodothyronine (T3) 1.06 NG/ML (0.82-1.58)
== END 2025-05-10 07:06 | disposition home or self-care (01) ==
PROVIDERS: Emergency Provider Student in an Organized Health Care Education/Training Program; PCP Family Medicine
DX: F10.129 Alcohol abuse with intoxication, unspecified (principal); Y90.8 Blood alcohol level of 240 mg/100 ml or more; R45.6 Violent behavior; Z11.52 Encounter for screening for COVID-19; I10 Essential (primary) hypertension; E78.5 Hyperlipidemia, unspecified; E11.9 Type 2 diabetes mellitus without complications; Z79.84 Long term (current) use of oral hypoglycemic drugs; Z79.82 Long term (current) use of aspirin; Z79.899 Other long term (current) drug therapy
CPT/HCPCS: 36415; 80053; 80307; 81003; 82077; 82948; 84439; 84443; 84480; 85025; 87635; 96361; 96374; 99284; J3411; J7120; J7121